=== PATIENT | female | born 1960 | race African-American/Black ===

== ENCOUNTER 2019-07-16 13:16 | Inpatient (IN) | payer MEDICAID ==
[~2019-07-16] VITALS: Ht 170.2 cm; Wt 98.2 kg
--- NOTE | 2019-07-16 13:20 | NUR ---
ED Nurse Note: Patient brought in by ambulance c/o dizziness and double vision. patient is alert awake, sometimes slow to answer queston. right side lesions noted due to shingles. patient reports she got diagnosed with shingles on 07/10/19, patient has not been taking any prescribed medications.
--- NOTE | 2019-07-16 13:34 | Emergency Room Report ---
History of Present Illness General Chief Complaint: Dizziness Source: Patient (Alverto Murcia MD) Present Illness HPI Patient is a 59-year-old female who presents after increased dizziness and diplopia. Patient reports having increased visual changes and states that she has been having difficulty with ambulation. Patient had also been having some difficulty with swallowing. She reports having onset of symptoms several days ago. She states she was recently seen at [facility]. She was recently diagnosed with shingles. She denies any current pain. She reports having some difficulty with vision. She denies blurring.She reports having prior history of hypertension and had been taking amlodipine as well as hydrochlorothiazide and losartan. (Alverto Murcia MD) Allergies: Coded Allergies: No Known Allergies (Unverified , 07/16/19) Patient History Now: No Reviewed Nursing Documentation: PMH: Agreed; PSxH: Agreed (Alverto Murcia MD) Nursing Documentation-PMH Past Medical History: No History, Except For Hx Hypertension: Yes (Alverto Murcia MD) Review of Systems All Other Systems: negative except mentioned in HPI (Alverto Murcia MD) Physical Exam Vital Signs Date Time Temp Pulse Resp B/P (MAP) Pulse Ox O2 Delivery O2 Flow Rate FiO2 07/16/19 13:14 98.2 89 20 126/94 (105) 99 Room Air General Appearance: alert, GCS 15, mild distress Head: normocephalic Eyes: bilateral eye other - disconjugate gas ENT: normal ENT inspection Neck: normal inspection, full range of motion Respiratory: normal inspection, chest non-tender, lungs clear Cardiovascular #1: normal inspection Gastrointestinal: normal inspection, normal bowel sounds, non tender, soft Musculoskeletal: normal inspection Neurologic: alert, oriented x3, 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 I feel this is a highly complex case requiring extensive working including EKG/Rhythm strip, Xray/CT/US, Blood/urine lab work, repeat exams while in ED, and administration of strong opiates/narcotics for pain control, admission to hospital or close patient follow up. Total time: 30 min bedside evaluation and treatment excludes procedures (EKG). Reason for critical care: lacunar infarcts Possible complications: hypotension, hypertension, MO, shock, arrhythmias, metabolic acidosis, end organ damage, respiratory failure. Interventions: MRI/MRA, consultation with neurology at [facility], aspirin Course: patient signed out to me pending MRI results. Admitted for dizziness. Positive PCP and Accu-Chek high. MRI was multiple lacunar infarcts. Patient stating dizziness for the last 5 days. Out of window for thrombolytic therapy. 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 Discussed case with stroke team at [facility]. Patient did not require higher level of care. Aspirin given Consultations: nursing staff, EMS, family Performed by: Dr Urena Tolerated well condition = serious j. because of unstable vital signs this patient had a condition that could potentially threaten life or limb. I feel this is a critical patient who required my full attention while patient was considered critical. Total Critical Care Time excluding procedures was greater than 35 minutes (Terence Urena MD) Medical Decision Making Diagnostic Impression: Primary Impression: Dizziness Additional Impressions: Uncontrolled diabetes mellitus Diplopia Lacunar infarct, acute ER Course Patient is a 59-year-old female presents for increased dizziness. Differential diagnosis include was not limited to vertigo, CVA, alcohol intoxication, hypertensive encephalopathy among others. Because of complexity of patient's case laboratory testing and imaging studies were ordered. Patient was noted to have what appears to be some ataxia as well as nystagmus. 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 See radiology report for full details. MRI of the brain was ordered due to patient's persistent dizziness and double vision. This patient was noted to have recent onset of symptoms. Urine drug screen did show positive for PCP which may partially explain the abnormal eye movements. Patient is also noted to be hyperglycemic with blood sugar greater than 400 patient started on IV fluids.Patient will be [facility] due to uncontrolled hyperglycemia and dizziness. Patient was endorsed to Dr. Urena pending MRI of brain. Labs Test 07/16/19 13:45 07/16/19 14:47 White Blood Count 8.9 K/UL (4.8-10.8) Red Blood Count 4.61 M/UL (4.20-5.40) Hemoglobin 14.0 G/DL (12.0-16.0) Hematocrit 41.7 % (37.0-47.0) Mean Corpuscular Volume 90 FL (80-99) Mean Corpuscular Hemoglobin 30.4 PG (27.0-31.0) Mean Corpuscular Hemoglobin Concent 33.6 G/DL (32.0-36.0) Red Cell Distribution Width 11.0 % (11.6-14.8) Platelet Count 315 K/UL (150-450) Mean Platelet Volume 7.1 FL (6.5-10.1) Neutrophils (%) (Auto) 59.6 % (45.0-75.0) Lymphocytes (%) (Auto) 31.4 % (20.0-45.0) Monocytes (%) (Auto) 7.3 % (1.0-10.0) Eosinophils (%) (Auto) 1.1 % (0.0-3.0) Basophils (%) (Auto) 0.6 % (0.0-2.0) Prothrombin Time 9.8 SEC (9.30-11.50) Prothromb Time International Ratio 0.9 (0.9-1.1) Activated Partial Thromboplast Time 24 SEC (23-33) Sodium Level 134 MMOL/L (136-145) Potassium Level 3.7 MMOL/L (3.5-5.1) Chloride Level 97 MMOL/L (98-107) Carbon Dioxide Level 25 MMOL/L (21-32) Anion Gap 12 mmol/L (5-15) Blood Urea Nitrogen 13 mg/dL (7-18) Creatinine 1.1 MG/DL (0.55-1.30) Estimat Glomerular Filtration Rate > 60 mL/min (>60) Glucose Level 508 MG/DL (74-106) Calcium Level 9.2 MG/DL (8.5-10.1) Total Bilirubin 0.4 MG/DL (0.2-1.0) Aspartate Amino Transf (AST/SGOT) 13 U/L (15-37) Alanine Aminotransferase (ALT/SGPT) 31 U/L (12-78) Alkaline Phosphatase 122 U/L (46-116) Troponin I 0.000 ng/mL (0.000-0.056) Total Protein 7.2 G/DL (6.4-8.2) Albumin 3.2 G/DL (3.4-5.0) Globulin 4.0 g/dL Albumin/Globulin Ratio 0.8 (1.0-2.7) Triglycerides Level 403 MG/DL (30-150) Cholesterol Level 230 MG/DL (< 200) LDL Cholesterol 150 mg/dL (<100) HDL Cholesterol 40 MG/DL (40-60) Cholesterol/HDL Ratio 5.8 (3.3-4.4) Lipase 181 U/L (73-393) Urine Opiates Screen Negative (NEGATIVE) Urine Barbiturates Screen Negative (NEGATIVE) Phencyclidine (PCP) Screen Positive (NEGATIVE) Urine Amphetamines Screen Negative (NEGATIVE) Urine Benzodiazepines Screen Negative (NEGATIVE) Urine Cocaine Screen Negative (NEGATIVE) Urine Marijuana (THC) Screen Negative (NEGATIVE) (Alverto Murcia MD) ER Course Hospital Course 59 yo F presents with dizziness, diplopia patient is signed out to me by Dr. Murcia; please see his note for full history and physical Labs show glucose greater than 500 no evidence of DKA. Positive PCP on drug screen. Pending MRI and MRA MRI shows multiple lacunar infarcts. MRA shows some stenosis of the right posterior cerebral artery. I evaluated the patient. Having dizziness since 07/09. No focal neurological deficits. Out of window for thrombolytic therapy. Discussed with stroke team at [facility] and they agree with assessment. Given aspirin. patient will be admitted to Dr Chavez' service for further care and support I. I feel this is a highly complex case requiring extensive working including EKG/Rhythm strip, Xray/CT/US, Blood/urine lab work, repeat exams while in ED, and administration of strong opiates/narcotics for pain control, admission to hospital or close patient follow up. Diagnosis -dizziness, uncontrolled diabetes, diplopia, lacunar infarct admitted to telemetry in serious condition Labs Test 07/16/19 13:45 07/16/19 14:47 White Blood Count 8.9 K/UL (4.8-10.8) Red Blood Count 4.61 M/UL (4.20-5.40) Hemoglobin 14.0 G/DL (12.0-16.0) Hematocrit 41.7 % (37.0-47.0) Mean Corpuscular Volume 90 FL (80-99) Mean Corpuscular Hemoglobin 30.4 PG (27.0-31.0) Mean Corpuscular Hemoglobin Concent 33.6 G/DL (32.0-36.0) Red Cell Distribution Width 11.0 % (11.6-14.8) Platelet Count 315 K/UL (150-450) Mean Platelet Volume 7.1 FL (6.5-10.1) Neutrophils (%) (Auto) 59.6 % (45.0-75.0) Lymphocytes (%) (Auto) 31.4 % (20.0-45.0) Monocytes (%) (Auto) 7.3 % (1.0-10.0) Eosinophils (%) (Auto) 1.1 % (0.0-3.0) Basophils (%) (Auto) 0.6 % (0.0-2.0) Prothrombin Time 9.8 SEC (9.30-11.50) Prothromb Time International Ratio 0.9 (0.9-1.1) Activated Partial Thromboplast Time 24 SEC (23-33) Sodium Level 134 MMOL/L (136-145) Potassium Level 3.7 MMOL/L (3.5-5.1) Chloride Level 97 MMOL/L (98-107) Carbon Dioxide Level 25 MMOL/L (21-32) Anion Gap 12 mmol/L (5-15) Blood Urea Nitrogen 13 mg/dL (7-18) Creatinine 1.1 MG/DL (0.55-1.30) Estimat Glomerular Filtration Rate > 60 mL/min (>60) Glucose Level 508 MG/DL (74-106) Calcium Level 9.2 MG/DL (8.5-10.1) Total Bilirubin 0.4 MG/DL (0.2-1.0) Aspartate Amino Transf (AST/SGOT) 13 U/L (15-37) Alanine Aminotransferase (ALT/SGPT) 31 U/L (12-78) Alkaline Phosphatase 122 U/L (46-116) Troponin I 0.000 ng/mL (0.000-0.056) Total Protein 7.2 G/DL (6.4-8.2) Albumin 3.2 G/DL (3.4-5.0) Globulin 4.0 g/dL Albumin/Globulin Ratio 0.8 (1.0-2.7) Triglycerides Level 403 MG/DL (30-150) Cholesterol Level 230 MG/DL (< 200) LDL Cholesterol 150 mg/dL (<100) HDL Cholesterol 40 MG/DL (40-60) Cholesterol/HDL Ratio 5.8 (3.3-4.4) Lipase 181 U/L (73-393) Urine Opiates Screen Negative (NEGATIVE) Urine Barbiturates Screen Negative (NEGATIVE) Phencyclidine (PCP) Screen Positive (NEGATIVE) Urine Amphetamines Screen Negative (NEGATIVE) Urine Benzodiazepines Screen Negative (NEGATIVE) Urine Cocaine Screen Negative (NEGATIVE) Urine Marijuana (THC) Screen Negative (NEGATIVE) (Terence Urena MD) CT/MRI/US Diagnostic Results CT/MRI/US Diagnostic Results #1: Imaging Test Ordered: MRA Brain Impression Findings: There is mild dolichoectasia of the distal left vertebral artery, which is dominant, less striking ectasia of the basilar artery. The distal vertebral and basilar arteries are patent, nonstenotic. The left PICA is visualized and patent. The right PICA is less well-demonstrated. Both superior cerebellar arteries are patent. Both P1 segments and proximal branches are patent. There is suggestion of stenosis, possibly significant of the right P2 origin, and equivocally slightly diminished flow enhancement distally. The left P1 and proximal branches are patent and nonstenotic. Neither posterior communicating artery is demonstrated. The anterior circulation demonstrates bilateral patent nonstenotic distal internal carotid arteries. The bilateral M1 segments and proximal branches are bilateral A1 segments and proximal branches are patent. There is probably a patent anterior commuting artery. No evidence of vascular malformation or aneurysm demonstrated. Impression: Evidence of stenosis, possibly significant, of the distal right P1 segment of the right posterior cerebral artery. No other evidence of proximal intracranial cerebrovascular insufficiency Findings discussed by phone with Dr. Urena in the emergency room at the time of interpretation CT/MRI/US Diagnostic Results #2: Imaging Test Ordered: MRI Brain Impression Findings: 3 punctate foci of restricted diffusion are seen within the the midbrain, one anteriorly and centrally, and one each just to the right and left of the central midline. Other foci of restricted diffusion are also demonstrated, one in the medial right thalamus and one in the left thalamus. The thalamic infarcts also demonstrated associated high T2 signal. There is no evidence of associated hemorrhage. No other foci of restricted diffusion demonstrated No acute hemorrhage or edema. No mass effect nor midline shift. Normal size ventricles and extra axial CSF spaces. There are scattered punctate foci of high T2 signal within the bilateral deep white matter. The vascular flow voids are preserved.. Visualized orbits and sinuses are unremarkable. Impression: Multiple acute lacunar infarcts in the midbrain and bilateral thalami. This probably represents multiple emboli to distal basilar artery perforators No acute hemorrhage or edema (Terence Urena MD) Last Vital Signs Date Time Temp Pulse Resp B/P (MAP) Pulse Ox O2 Delivery O2 Flow Rate FiO2 07/16/19 13:14 98.2 89 20 126/94 (105) 99 Room Air Status: unchanged (Alverto Murcia MD) Status: improved (Terence Urena MD) Disposition: ADMITTED INPATIENT Condition: Serious Alverto Murcia MD Jul 16, 2019 13:34 Terence Urena MD Jul 16, 2019 18:24
--- NOTE | 2019-07-16 13:50 | NUR ---
ED Nurse Note: patient went to CT
--- NOTE | 2019-07-16 14:04 | NUR ---
ED Nurse Note: patient came back from CT
[2019-07-16 14:07] VITALS: BP 149/75
[2019-07-16 14:08] LABS: BASOPHILS % (AUTO) 0.6 % (0.0-2.0); EOSINOPHILS % (AUTO) 1.1 % (0.0-3.0); HEMATOCRIT 41.7 % (37.0-47.0); LYMPHOCYTES % (AUTO) 31.4 % (20.0-45.0); MEAN CORPUSCULAR VOLUME 90 FL (80-99); MONOCYTES % (AUTO) 7.3 % (1.0-10.0); NEUTROPHILS % (AUTO) 59.6 % (45.0-75.0); PLATELET COUNT 315 K/UL (150-450); RED BLOOD COUNT 4.61 M/UL (4.20-5.40); WHITE BLOOD COUNT 8.9 K/UL (4.8-10.8)
[2019-07-16 14:18] LABS: INR 0.9 (0.9-1.1)
--- NOTE | 2019-07-16 14:21 | Diagnostic Imaging Report ---
Indications: Visual changes, difficulty ambulating, difficulty swallowing Technique: Spiral acquisitions obtained through the brain. Angled axial and coronal 5 x 5 mm slices were reconstructed. Total dose length product 1438.96 mGycm. CTDI vol(s) 70.38 mGy. Dose reduction achieved using automated exposure control Comparison: None. Findings: No acute intracranial hemorrhage or edema. No mass effect or midline shift. There is minimal periventricular deep white matter low-attenuation, consistent with chronic microvascular ischemic change. Normal gan-white differentiation otherwise. Normal size ventricles and extra-axial CSF spaces. There is dolichoectasia of the basilar and left vertebral arteries. The mastoids are clear. The calvarium is intact. The visualized orbits and sinuses are unremarkable Impression: Minimal age-related changes. Negative for acute intracranial bleed or mass effect The CT scanner at [facility] is accredited by the [employer] and the scans are performed using protocols designed to limit radiation exposure to as low as reasonably achievable to attain images of sufficient resolution adequate for diagnostic evaluation.
[2019-07-16 14:28] LABS: ALANINE AMINOTRANSFERASE 31 U/L (12-78); ALBUMIN 3.2 G/DL (3.4-5.0); ALBUMIN/GLOBULIN RATIO 0.8 (1.0-2.7); ALKALINE PHOSPHATASE 122 U/L (46-116); ANION GAP 12 mmol/L (5-15); ASPARTATE AMINO TRANSFERASE 13 U/L (15-37); BILIRUBIN,TOTAL 0.4 MG/DL (0.2-1.0); BLOOD UREA NITROGEN 13 mg/dL (7-18); CALCIUM 9.2 MG/DL (8.5-10.1); CARBON DIOXIDE 25 MMOL/L (21-32); CHLORIDE 97 MMOL/L (98-107); CHOLESTEROL 230 MG/DL (< 200); CREATININE 1.1 MG/DL (0.55-1.30); HDL CHOLESTEROL 40 MG/DL (40-60); POTASSIUM 3.7 MMOL/L (3.5-5.1); SODIUM 134 MMOL/L (136-145); TRIGLYCERIDES 403 MG/DL (30-150)
[2019-07-16] MEDS ORDERED: Gadavist 7.5mMol/7.5ml vial IV PRN (15:00)
--- NOTE | 2019-07-16 15:25 | NUR ---
ED Nurse Note: patient taken to MRI with London Mccabe
--- NOTE | 2019-07-16 17:07 | Diagnostic Imaging Report ---
Indication: Increased dizziness and diplopia, increased visual changes, difficulty ambulating Technique: sagittal T1 fast spin echo, axial T1 FLAIR, axial T2 FLAIR, axial T2 FS PROPELLER, axial T2* GRE, axial diffusion weighted images. ADC and exponential ADC maps generated Comparison: none Findings: 3 punctate foci of restricted diffusion are seen within the the midbrain, one anteriorly and centrally, and one each just to the right and left of the central midline. Other foci of restricted diffusion are also demonstrated, one in the medial right thalamus and one in the left thalamus. The thalamic infarcts also demonstrated associated high T2 signal. There is no evidence of associated hemorrhage. No other foci of restricted diffusion demonstrated No acute hemorrhage or edema. No mass effect nor midline shift. Normal size ventricles and extra axial CSF spaces. There are scattered punctate foci of high T2 signal within the bilateral deep white matter. The vascular flow voids are preserved.. Visualized orbits and sinuses are unremarkable. Impression: Multiple acute lacunar infarcts in the midbrain and bilateral thalami. This probably represents multiple emboli to distal basilar artery perforators No acute hemorrhage or edema Punctate foci of high T2 signal within the deep white matter, most likely on the basis of chronic microvascular ischemic changes although demyelinating disease also possibility. Critical value findings phoned to Dr. Urena in the emergency room at the time of interpretation
[2019-07-16] MEDS ORDERED: Metoclopramide 10mg/2ml Inj IVP PRN (17:15)
[2019-07-16] MEDS ORDERED: Acetaminophen 650 MG SUPP RECTAL PRN ×2 (17:15)
[2019-07-16] MEDS ORDERED: Miralax 17gm pkt ORAL PRN (17:15)
[2019-07-16] MEDS ORDERED: Nitroglycerin Subl 0.4mg tab SL PRN (17:15)
[2019-07-16] MEDS ORDERED: Hydromorphone 0.5mg/0.5ml inj IVP PRN (17:15)
[2019-07-16] MEDS ORDERED: Milk of Magnesia 30ml Ud ORAL PRN (17:15)
[2019-07-16] MEDS ORDERED: LORazepam 1mg tab ORAL PRN (17:15)
[2019-07-16] MEDS ORDERED: Zolpidem 5mg tab ORAL PRN (17:15)
--- NOTE | 2019-07-16 17:23 | History and Physical ---
History of Present Illness General Date patient seen: Jul 16, 2019 Time patient seen: 17:00 Reason for Hospitalization: Dizziness Present Illness HPI Patient is a 59-year-old female who presents after increased dizziness and diplopia. Patient reports having increased visual changes and states that she has been having difficulty with ambulation that began 5 days ago. Patient had also been having some difficulty with swallowing. She reports having onset of symptoms several days ago. She states she was recently seen at [facility]. She was recently diagnosed with shingles. She denies any current pain. She reports having some difficulty with vision. She denies blurring.She reports having prior history of hypertension and had been taking amlodipine as well as hydrochlorothiazide and losartan. Above history was confirmed with patient. She was found to have hyperglycemia of glucose 508 in the ed and given ivf. She was also found to be PCP positive. Patient denies prior history of diabetes. She denies fevers, c, n, v, abd pain. Admits to right arm weakness, no change in sensation. MRA showed acute infarcts however symptoms were five days ago. ED discussed with [facility] stroke center. Patient also complains of a burning pain at her flank where she was diagnosed with shingles but never got treatment. Denies known history of zoster infection. Allergies: Coded Allergies: No Known Allergies (Unverified , 07/16/19) Medication History Scheduled Amlodipine Besylate* (Amlodipine Besylate*), 5 MG ORAL DAILY, (Reported) Aspirin* (Aspirin*), 81 MG ORAL DAILY, (Reported) Hydrochlorothiazide* (Hydrochlorothiazide*), 25 MG ORAL DAILY, (Reported) Losartan Potassium* (Losartan Potassium*), 50 MG ORAL DAILY, (Reported) Patient History Healthcare decision maker Resuscitation status FULL Advanced Directive on File Past Medical/Surgical History Past Medical/Surgical History: (1) HTN (hypertension) Social History Social History: (1) Substance abuse (2) PCP (phencyclidine) abuse Review of Systems All Other Systems: negative except mentioned in HPI Physical Exam Last 24 Hour Vital Signs Date Time Temp Pulse Resp B/P (MAP) Pulse Ox O2 Delivery O2 Flow Rate FiO2 07/16/19 14:07 98.2 81 20 149/75 98 Room Air 07/16/19 13:47 89 20 Room Air 07/16/19 13:14 98.2 89 20 126/94 (105) 99 Room Air Laboratory Tests Test 07/16/19 13:45 07/16/19 14:47 White Blood Count 8.9 K/UL (4.8-10.8) Red Blood Count 4.61 M/UL (4.20-5.40) Hemoglobin 14.0 G/DL (12.0-16.0) Hematocrit 41.7 % (37.0-47.0) Mean Corpuscular Volume 90 FL (80-99) Mean Corpuscular Hemoglobin 30.4 PG (27.0-31.0) Mean Corpuscular Hemoglobin Concent 33.6 G/DL (32.0-36.0) Red Cell Distribution Width 11.0 % (11.6-14.8) L Platelet Count 315 K/UL (150-450) Mean Platelet Volume 7.1 FL (6.5-10.1) Neutrophils (%) (Auto) 59.6 % (45.0-75.0) Lymphocytes (%) (Auto) 31.4 % (20.0-45.0) Monocytes (%) (Auto) 7.3 % (1.0-10.0) Eosinophils (%) (Auto) 1.1 % (0.0-3.0) Basophils (%) (Auto) 0.6 % (0.0-2.0) Prothrombin Time 9.8 SEC (9.30-11.50) Prothromb Time International Ratio 0.9 (0.9-1.1) Activated Partial Thromboplast Time 24 SEC (23-33) Sodium Level 134 MMOL/L (136-145) L Potassium Level 3.7 MMOL/L (3.5-5.1) Chloride Level 97 MMOL/L (98-107) L Carbon Dioxide Level 25 MMOL/L (21-32) Anion Gap 12 mmol/L (5-15) Blood Urea Nitrogen 13 mg/dL (7-18) Creatinine 1.1 MG/DL (0.55-1.30) Estimat Glomerular Filtration Rate > 60 mL/min (>60) Glucose Level 508 MG/DL (74-106) *H Calcium Level 9.2 MG/DL (8.5-10.1) Total Bilirubin 0.4 MG/DL (0.2-1.0) Aspartate Amino Transf (AST/SGOT) 13 U/L (15-37) L Alanine Aminotransferase (ALT/SGPT) 31 U/L (12-78) Alkaline Phosphatase 122 U/L (46-116) H Troponin I 0.000 ng/mL (0.000-0.056) Total Protein 7.2 G/DL (6.4-8.2) Albumin 3.2 G/DL (3.4-5.0) L Globulin 4.0 g/dL Albumin/Globulin Ratio 0.8 (1.0-2.7) L Triglycerides Level 403 MG/DL (30-150) H Cholesterol Level 230 MG/DL (< 200) H LDL Cholesterol 150 mg/dL (<100) H HDL Cholesterol 40 MG/DL (40-60) Cholesterol/HDL Ratio 5.8 (3.3-4.4) H Lipase 181 U/L (73-393) Urine Opiates Screen Negative (NEGATIVE) Urine Barbiturates Screen Negative (NEGATIVE) Phencyclidine (PCP) Screen Positive (NEGATIVE) H Urine Amphetamines Screen Negative (NEGATIVE) Urine Benzodiazepines Screen Negative (NEGATIVE) Urine Cocaine Screen Negative (NEGATIVE) Urine Marijuana (THC) Screen Negative (NEGATIVE) Height (Feet): 5 Height (Inches): 7.00 Weight (Pounds): 170 Medications Current Medications Medications (Trade) Dose Ordered Sig/Artem Route PRN Reason Start Time Stop Time Status Last Admin Dose Admin Acetaminophen (Tylenol) 650 mg Q4H PRN ORAL Mild Pain (Pain Scale 1-3) 07/16/19 17:15 08/15/19 17:14 Acetaminophen (Tylenol) 650 mg Q4H PRN ORAL fever 07/16/19 17:15 08/15/19 17:14 Acetaminophen (Tylenol) 650 mg Q4H PRN RECTAL Mild Pain (Pain Scale 1-3) 07/16/19 17:15 08/15/19 17:14 Acetaminophen (Tylenol) 650 mg Q4H PRN RECTAL fever 07/16/19 17:15 08/15/19 17:14 Bisacodyl (Dulcolax) 10 mg DAILYPRN PRN RECTAL Constipation 07/16/19 17:15 08/15/19 17:14 Dextrose (Dextrose 50%) 25 ml Q30M PRN IV Hypoglycemia 07/16/19 17:15 08/15/19 17:14 Dextrose (Dextrose 50%) 50 ml Q30M PRN IV Hypoglycemia 07/16/19 17:15 08/15/19 17:14 Diphenhydramine HCl (Benadryl) 25 mg Q6H PRN ORAL Itching/Pruritis 07/16/19 17:15 08/15/19 17:14 Docusate Sodium (Colace) 100 mg EVERY 12 HOURS ORAL 07/16/19 21:00 08/15/19 20:59 Famotidine (Pepcid) 40 mg DAILY ORAL 07/17/19 09:00 08/16/19 08:59 Gadobutrol (Gadavist) 7.5 mmol NOW PRN IV Radiology Procedure 07/16/19 15:00 07/20/19 14:54 Heparin Sodium (Porcine) (Heparin 5000 units/ml) 5,000 units EVERY 8 HOURS SUBQ 07/16/19 22:00 08/15/19 21:59 Hydromorphone HCl (Dilaudid) 0.5 mg Q4H PRN IVP severe pain 07/16/19 17:15 07/23/19 17:14 Insulin Detemir (Levemir) 10 units BEDTIME SUBQ 07/16/19 21:00 08/15/19 20:59 UNV Insulin Human Regular (NovoLIN R) 10 units ONCE ONCE SUBQ 07/16/19 17:30 07/16/19 17:31 UNV Lorazepam (Ativan) 1 mg Q4H PRN ORAL For Anxiety 07/16/19 17:15 07/23/19 17:14 Magnesium Hydroxide (Mom) 30 ml HSPRN PRN ORAL Constipation 07/16/19 17:15 08/15/19 17:14 Methocarbamol (Robaxin) 500 mg TID PRN ORAL spaspm 07/16/19 17:30 08/15/19 17:29 UNV Metoclopramide HCl (Reglan) 10 mg Q6H PRN IVP Nausea & Vomiting 07/16/19 17:15 08/15/19 17:14 Nitroglycerin (Ntg) 0.4 mg Q5M PRN SL Prn Chest Pain 07/16/19 17:15 08/15/19 17:14 Ondansetron HCl (Zofran) 4 mg Q6H PRN IVP Nausea & Vomiting 07/16/19 17:15 08/15/19 17:14 Polyethylene Glycol (Miralax) 17 gm DAILYPRN PRN ORAL Constipation 07/16/19 17:15 08/15/19 17:14 Prochlorperazine (Compazine) 10 mg Q6H PRN IVP Nausea & Vomiting 07/16/19 17:15 08/15/19 17:14 Sodium Chloride 1,000 ml @ 100 mls/hr Q10H IVLG 07/16/19 20:00 08/15/19 19:59 Tramadol HCl (Ultram) 50 mg Q6H PRN ORAL mod pain 07/16/19 17:30 07/23/19 17:29 UNV Valacyclovir HCl (Valtrex) 1,000 mg TID ORAL 07/16/19 18:00 07/23/19 17:59 UNV Zolpidem Tartrate (Ambien) 5 mg DAILYPRN PRN ORAL Insomnia 07/16/19 17:15 07/23/19 17:14 Objective Narrative gen- overweight female, distracted in conversation and has difficulty remaining eye contact cv- rrr,no m,r,g resp- ctab no w,r,c, abd- soft, nondistended, no masses ext- normal muscle tone skin- right flank dermatomal pattern of crusted vesicular rash neuro- CN II-XII intact, 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 Assessment/Plan Diagnosis Circle I: 59 yo F PMH of HTN present complaining of diploplia for 5 days, ataxia, and found to have hyperglycemia in the ed # DIploplia/weakness, eval for cva ddx: pcp - Neurology consult, appreciate reqs - Psyche consult appreciate reqs - f/u final read MRA head and neck - ED reports acute infarcts and [facility] [place], pt out of window - tele - ekg and troponins - echo - sw for substance abuse - PT OT - check flp - statin # New onset DM2 - check a1c - check FLP - s/p 1 L NS in ED - cont NS @ 100 - 10 units of regular insulin now and levemir 10 sq qhs - patient insulin naive - Endo consult, appreciate reqs - accuchecks qac and qhs - diabetic diet - diabetic education # Shingles - lesions are crusted over, patient does not need iso - valacyclovir 1g tid x 6 dys (07/16-) - gabapentin for pain control to start tmw after resolution of desi - pain control, see orders # likely DESI, prerenal - IVF as above - monitor bmp - avoid nephrotoxic meds - UA - monitor I/O # Uncontrolled HT - cont home meds - nifedipine prn FULL CODE spent >18 minutes in discussion regarding code status time of note may not reflect time of my encounter Sonya Lan DO Jul 16, 2019 17:23
[2019-07-16] MEDS ORDERED: Aspirin EC 325mg tab ORAL ONE (17:30)
[2019-07-16] MEDS ORDERED: Methocarbamol 500mg tab ORAL PRN (17:30)
--- NOTE | 2019-07-16 17:44 | Diagnostic Imaging Report ---
Indications: Dizziness, diplopia, increased visual changes, infarcts demonstrated on concomitant MRI Technique: 3D [id number] images obtained through the [place] [facility] [place]. MIP reconstructions were generated in multiple rotational projections Comparison: none Findings: There is mild dolichoectasia of the distal left vertebral artery, which is dominant, less striking ectasia of the basilar artery. The distal vertebral and basilar arteries are patent, nonstenotic. The left PICA is visualized and patent. The right PICA is less well-demonstrated. Both superior cerebellar arteries are patent. Both P1 segments and proximal branches are patent. There is suggestion of stenosis, possibly significant of the right P2 origin, and equivocally slightly diminished flow enhancement distally. The left P1 and proximal branches are patent and nonstenotic. Neither posterior communicating artery is demonstrated. The anterior circulation demonstrates bilateral patent nonstenotic distal internal carotid arteries. The bilateral M1 segments and proximal branches are bilateral A1 segments and proximal branches are patent. There is probably a patent anterior commuting artery. No evidence of vascular malformation or aneurysm demonstrated. Impression: Evidence of stenosis, possibly significant, of the distal right P1 segment of the right posterior cerebral artery. No other evidence of proximal intracranial cerebrovascular insufficiency Findings discussed by phone with Dr. Urena in the emergency room at the time of interpretation
[2019-07-16 18:37] VITALS: BP 145/71
[2019-07-16] MEDS ORDERED: ASPIRIN81 MG ORAL (18:53)
[2019-07-16] MEDS ORDERED: LOSARTAN POTASS50 MG ORAL (18:53)
[2019-07-16] MEDS ORDERED: AMLODIPINE BESYL5 MG ORAL (18:53)
[2019-07-16] MEDS ORDERED: HYDROCHLOROTHIA25 MG ORAL (18:53)
--- NOTE | 2019-07-16 19:03 | NUR ---
HAND-OFF: Report given to Tanisha HERNANDEZ. patient is stable in bed, talking on the phone.
--- NOTE | 2019-07-16 19:04 | NUR ---
ED Nurse Note: Received report from DAVID Jonas. pT in bed, VSS
[2019-07-16] MEDS ORDERED: Insulin Human Regular 100units/ml 3ml SUBQ SCH (19:30)
[2019-07-16] MEDS ORDERED: NIFEdipine 10mg cap ORAL PRN (20:30)
--- NOTE | 2019-07-16 20:40 | NUR ---
ER DISCHARGE NOTE: pt was brought up to telemetry room 218-2 accompanied by RN and administrative tech via bed in stable condition. Report given to DAVID Lopez. Belonging list signed off.
--- NOTE | 2019-07-16 20:45 | NUR ---
NURSE NOTES: Received report from Cassie Brush RN. regarding patient's transfer to TELE floor from ED. Belongings checklist done and head to toe assessment initiated with noted Shingles on right side of abdomen. Appropriate isolation precaution active per protocol. Placed on continuous cardiac monitoring as ordered. Safety precaution in place; siderails X2 up, call light within reach, bed in lowest position, brakes and alarm on at all times. Needs and wants anticipated and attended, will continue plan of care and monitor for any changes noted. MD aware of patient's arrival on the unit. New orders received and carried out WC protocol orders and pictures taken for noted Shingles. MD aware Placed on isolation precaution per protocol
[2019-07-16 21:00] VITALS: BP 150/92
[2019-07-16 21:19] LABS: CREATINE KINASE 61 U/L (26-308)
[2019-07-16] MEDS: valACYclovir HCL 500mg tab ORAL SCH (21:49)
[2019-07-16] MEDS: Docusate 100mg cap ORAL SCH (21:49)
[2019-07-16] MEDS: Heparin 5000 units/ml inj SUBQ SCH (21:50)
[2019-07-16] MEDS: Insulin NovoLOG Flexpen S/S (Mod) SUBQ SCH (22:00)
[2019-07-16] MEDS ORDERED: Levemir Flexpen SUBQ SCH (23:00)
[2019-07-16 23:55] LABS: APPEARANCE,URINE CLEAR; BILIRUBIN, URINE NEGATIVE (NEGATIVE); COLOR,URINE PALE YELLOW; GLUCOSE, URINE (UA) 4+ (NEGATIVE); KETONES,URINE NEGATIVE (NEGATIVE); LEUKOCYTE ESTERASE ,URINE 2+ (NEGATIVE); NITRITE,URINE NEGATIVE (NEGATIVE); PH,URINE 7 (4.5-8.0); PROTEIN,URINE NEGATIVE (NEGATIVE); UROBILINOGEN,URINE NORMAL MG/DL (0.0-1.0)
[2019-07-17] VITALS: BP 155/86
[2019-07-17 04:00] VITALS: BP 156/60
[2019-07-17] MEDS: valACYclovir HCL 500mg tab ORAL SCH ×3 (05:36→21:35)
[2019-07-17] MEDS: Insulin NovoLOG Flexpen S/S (Mod) SUBQ SCH ×4 (05:38→21:46)
[2019-07-17] MEDS: Heparin 5000 units/ml inj SUBQ SCH ×3 (05:38→21:45)
--- NOTE | 2019-07-17 06:30 | NUR ---
HAND-OFF: Report given to Natividad Estrada RN. Endorsed plan of care. Patient in bed with no S/S of distress.
--- NOTE | 2019-07-17 07:10 | NUR ---
NURSE NOTES: Nurse report given by DAVID Mcpherson. Patient's awake and comfortable in bed. Bed at lowest position, break engaged and call light within reach. IV is running fluid, patent and asymptomatic. Patient uses bedside commode. Denies pain. No s/s of distress or SOB. Will continue to monitor.
[2019-07-17 07:22] LABS: EOSINOPHILS % (AUTO) 2.2 % (0.0-3.0); HEMATOCRIT 41.5 % (37.0-47.0); HEMOGLOBIN 14.1 G/DL (12.0-16.0); LYMPHOCYTES % (AUTO) 45.1 % (20.0-45.0); MEAN CORPUSCULAR VOLUME 89 FL (80-99); MONOCYTES % (AUTO) 8.4 % (1.0-10.0); NEUTROPHILS % (AUTO) 43.4 % (45.0-75.0); PLATELET COUNT 318 K/UL (150-450); RED BLOOD COUNT 4.66 M/UL (4.20-5.40); RED CELL DISTRIBUTION WIDTH 11.1 % (11.6-14.8); WHITE BLOOD COUNT 7.1 K/UL (4.8-10.8)
[2019-07-17 07:49] LABS: CHOLESTEROL 239 MG/DL (< 200); HDL CHOLESTEROL 38 MG/DL (40-60); TRIGLYCERIDES 258 MG/DL (30-150)
[2019-07-17 07:57] LABS: ANION GAP 10 mmol/L (5-15); BLOOD UREA NITROGEN 10 mg/dL (7-18); CALCIUM 8.8 MG/DL (8.5-10.1); CARBON DIOXIDE 26 MMOL/L (21-32); CHLORIDE 102 MMOL/L (98-107); CREATININE 0.7 MG/DL (0.55-1.30); POTASSIUM 3.1 MMOL/L (3.5-5.1); SODIUM 137 MMOL/L (136-145)
[2019-07-17 08:00] VITALS: BP 140/92
[2019-07-17] MEDS: Docusate 100mg cap ORAL SCH ×2 (09:14→21:35)
--- NOTE | 2019-07-17 09:27 | Diagnostic Imaging Report ---
Indication: Shortness breath Technique: One view of the chest Comparison: none Findings: Lungs and pleural spaces are clear. The heart is upper limits normal in size. The aorta is tortuous and ectatic Impression: No acute process
--- NOTE | 2019-07-17 09:32 | NUR ---
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 SI: DIZZINESS, LACUNAR INFARCT, DIPLOPIA, UNCONTROLLED DM VS: BP: 149/75 HR: 81 RR 20 02 Sat 98% (RA) T: 98.2 NT: NA 134 CL 97 GLUCOSE 508 TRIGLY 403 CHOLESTEROL 250 LDL 150 ALKPHOS 122 UR PHENYCY + HEAD CT: NEG IS: NS 1000ML IV NOVOLIN R 10U SUBQ ASA 325MG PO Admitted to TELEMETRY TELEMETRY status DCP: Pending Hospital Stay
--- NOTE | 2019-07-17 09:48 | General Progress Note ---
Assessment/Plan Assessment/Plan: void note Subjective Allergies: Coded Allergies: No Known Allergies (Unverified , 07/16/19) Objective Last 24 Hour Vital Signs Date Time Temp Pulse Resp B/P (MAP) Pulse Ox O2 Delivery O2 Flow Rate FiO2 07/17/19 04:00 98.0 72 19 156/60 (92) 96 07/17/19 04:00 71 07/17/19 00:00 97.0 76 18 155/86 (109) 93 07/17/19 00:00 75 07/16/19 22:00 75 07/16/19 21:14 Room Air 07/16/19 21:00 97.2 75 18 150/92 (111) 96 07/16/19 20:40 98.4 71 18 140/75 98 Room Air 07/16/19 18:37 98.2 72 18 145/71 98 Room Air 07/16/19 14:07 98.2 81 20 149/75 98 Room Air 07/16/19 13:47 89 20 Room Air 07/16/19 13:14 98.2 89 20 126/94 (105) 99 Room Air Intake and Output 07/16/19 07/17/19 18:59 06:59 Intake Total 240 ml Output Total 400 ml Balance -160 ml Intake Oral 240 ml Output Urine Total 400 ml # Voids 1 Laboratory Tests 07/16/19 13:45: White Blood Count 8.9, Red Blood Count 4.61, Hemoglobin 14.0, Hematocrit 41.7, Mean Corpuscular Volume 90, Mean Corpuscular Hemoglobin 30.4, Mean Corpuscular Hemoglobin Concent 33.6, Red Cell Distribution Width 11.0L, Platelet Count 315, Mean Platelet Volume 7.1, Neutrophils (%) (Auto) 59.6, Lymphocytes (%) (Auto) 31.4, Monocytes (%) (Auto) 7.3, Eosinophils (%) (Auto) 1.1, Basophils (%) (Auto ) 0.6, Prothrombin Time 9.8, Prothromb Time International Ratio 0.9, Activated Partial Thromboplast Time 24, Sodium Level 134L, Potassium Level 3.7, Chloride Level 97L, Carbon Dioxide Level 25, Anion Gap 12, Blood Urea Nitrogen 13, Creatinine 1.1, Estimat Glomerular Filtration Rate > 60, Glucose Level 508*H, Hemoglobin A1c 13.7H, Calcium Level 9.2, Magnesium Level 1.7L, Total Bilirubin 0.4, Aspartate Amino Transf (AST/SGOT) 13L, Alanine Aminotransferase (ALT/SGPT) 31, Alkaline Phosphatase 122H, Total Creatine Kinase 61, Troponin I 0.000, Total Protein 7.2, Albumin 3.2L, Globulin 4.0, Albumin/Globulin Ratio 0.8L, Triglycerides Level 403H, Cholesterol Level 230H, LDL Cholesterol 150H, HDL Cholesterol 40, Cholesterol/HDL Ratio 5.8H, Lipase 181, Thyroid Stimulating Hormone (TSH) 1.041, Free Thyroxine 0.87 07/16/19 14:47: Urine Opiates Screen Negative, Urine Barbiturates Screen Negative, Phencyclidine (PCP) Screen PositiveH, Urine Amphetamines Screen Negative, Urine Benzodiazepines Screen Negative, Urine Cocaine Screen Negative, Urine Marijuana (THC) Screen Negative 07/16/19 21:20: Potassium Level 3.4L 07/16/19 23:40: Urine Color Pale yellow, Urine Appearance Clear, Urine pH 7, Urine Specific [place] 1.010, Urine Protein Negative, Urine Glucose (UA) 4+H, Urine Ketones Negative, Urine Blood Negative, Urine Nitrite Negative, Urine Bilirubin Negative , Urine Urobilinogen Normal, Urine Leukocyte Esterase 2+H, Urine RBC 0-2, Urine WBC 5-10H, Urine Squamous Epithelial Cells Few, Urine Bacteria Few 07/17/19 06:47: White Blood Count 7.1, Red Blood Count 4.66, Hemoglobin 14.1, Hematocrit 41.5, Mean Corpuscular Volume 89, Mean Corpuscular Hemoglobin 30.3, Mean Corpuscular Hemoglobin Concent 34.1, Red Cell Distribution Width 11.1L, Platelet Count 318, Mean Platelet Volume 7.1, Neutrophils (%) (Auto) 43.4L, Lymphocytes (%) (Auto) 45.1H, Monocytes (%) (Auto) 8.4, Eosinophils (%) (Auto) 2.2, Basophils (%) (Auto ) 1.0, Sodium Level 137, Potassium Level 3.1L, Chloride Level 102, Carbon Dioxide Level 26, Anion Gap 10, Blood Urea Nitrogen 10, Creatinine 0.7, Estimat Glomerular Filtration Rate > 60, Glucose Level 275#H, Calcium Level 8.8, Magnesium Level 1.8, Triglycerides Level 258H, Cholesterol Level 239H, LDL Cholesterol 158H, HDL Cholesterol 38L, Cholesterol/HDL Ratio 6.3H Height (Feet): 5 Height (Inches): 7.00 Weight (Pounds): 206 Sonya Lan DO Jul 17, 2019 09:48
--- NOTE | 2019-07-17 10:00 | NUR ---
Social Service Note SW attempted to meet with patient, patient asked SW to come back at a later time. SW will follow up at later time to assess for substance abuse. Patient positive for PCP. Addendum: 07/18/19 at 1459 by POLINA MAN Patient denies substance abuse issues and indicated not requiring follow up services.
[2019-07-17] MEDS: Aspirin Baby 81mg ORAL SCH (10:47)
[2019-07-17] MEDS ORDERED: Insulin Human Regular 100units/ml 3ml SUBQ SCH (11:30)
[2019-07-17 12:00] VITALS: BP 150/91
--- NOTE | 2019-07-17 12:38 | Cardiology Report ---
APPROVED REPORT EKG Measurement Heart [id number] Normal sinus rhythm Left axis deviation Nonspecific T wave abnormality Abnormal ECG
--- NOTE | 2019-07-17 13:43 | Cardiology Report ---
APPROVED REPORT EXAM: Two-dimensional and M-mode echocardiogram with Doppler and color Doppler. INDICATION CVA/TIA M-Mode DIMENSIONS IVSd1.1 (0.7-1.1cm)Left Atrium (MM)3.6 (1.6-4.0cm) LVDd5.4 (3.5-5.6cm)Aortic Root3.4 (2.0-3.7cm) PWd0.9 (0.7-1.1cm)Aortic Cusp Exc.1.7 (1.5-2.0cm) LVDs3.9 (2.5-4.0cm) PWs1.3 cm Normal left ventricular chamber size, systolic function and wall motion. Left ventricular ejection fraction estimated to be 60-65%. Moderate left ventricular hypertrophy. Anterior Echo-free space, may be due to pericardial fat or effusion. All other cardiac chamber sizes are within normal limits. Focal aortic valve sclerosis with adequate cusp excursion. Thickened mitral valve leaflets with normal excursion. Mitral annulus and aortic root calcification. Pulmonic valve not well visualized. Normal tricuspid valve structure. IVC measured at 1.9 cm with physiologic collapse. A color flow and spectral Doppler study was performed and revealed: No aortic regurgitation. Trace mitral regurgitation. Mitral diastolic velocities suggest reduced left ventricular relaxation c/w mild LV diastolic dysfunction (Grade I ). Trace tricuspid regurgitation. Tricuspid systolic velocities suggests peak right ventricular systolic pressure of 15 mmHg. Mild pulmonic regurgitation present.
--- NOTE | 2019-07-17 14:00 | NUR ---
PT EVALUATION NOTE Patient seen for initial evaluation, see complete evaluation for details. Patient presents with generalized weakness and impaired balance which affects patient's ability to complete mobility tasks. Patient requires CGA for transfers and ambulation due to impaired balance. Stance and ambulation are unsteady and patient is high fall risk. Patient will benefit from skilled inpatient PT intervention to address strength, balance, safety and functional mobility. Recommend discharge to ARU/SNF for further rehab once medically cleared by MD. DME needs to be determined based on patient's progress. Addendum: 07/17/19 at 1425 by KIKI LEVINE PT Amended: Links added.
--- NOTE | 2019-07-17 14:43 | NUR ---
*-* INSURANCE *-* ALL CLINICALS AND REVIEWS HAVE BEEN FAXED TO: NATALIE MOSQUEDA:DELONTE F: [phone]
[2019-07-17 16:00] VITALS: BP 149/91
--- NOTE | 2019-07-17 16:36 | General Progress Note ---
Assessment/Plan Assessment/Plan: 59 yo F PMH of HTN present complaining of diploplia for 5 days, ataxia, and found to have hyperglycemia in the ed # Diploplia/weakness in setting of substance abuse (PCP) - Neurology consult, appreciate reqs - Psyche consult appreciate reqs - f/u final read MRA head and neck: Reviewed - ED reports acute infarcts and [place] [facility] [place], pt out of window - tele - ekg and troponins: Reviewed - echo follow-up - sw for substance abuse - PT OT - check flp; elevated - statin # New onset DM2 - check a1c: 13 - check FLP: Reviewed - s/p 1 L NS in ED -S/P NS @ 100 - 10 units of regular insulin now and levemir 10 sq qhs-> Levemir increased from 10 units to 16 units, further management per endocrinology - Endo consult, appreciate reqs - accuchecks qac and qhs - diabetic diet - diabetic education # Shingles - lesions are crusted over, patient does not need iso - valacyclovir 1g tid x 6 dys (07/16-) - gabapentin for pain control - pain control, see orders # DESI, prerenal and resolved - IVF as above - monitor bmp - avoid nephrotoxic meds - UA: Reviewed - monitor I/O # Uncontrolled HTN - cont home meds - nifedipine prn FULL CODE time of note may not reflect time of my encounter Subjective Allergies: Coded Allergies: No Known Allergies (Unverified , 07/16/19) Objective Last 24 Hour Vital Signs Date Time Temp Pulse Resp B/P (MAP) Pulse Ox O2 Delivery O2 Flow Rate FiO2 07/17/19 12:00 97.7 67 18 150/91 (110) 97 07/17/19 12:00 70 07/17/19 10:47 79 140/92 07/17/19 09:00 Room Air 07/17/19 08:00 97.9 79 18 140/92 (108) 98 07/17/19 08:00 79 07/17/19 04:00 98.0 72 19 156/60 (92) 96 07/17/19 04:00 71 07/17/19 00:00 97.0 76 18 155/86 (109) 93 07/17/19 00:00 75 07/16/19 22:00 75 07/16/19 21:14 Room Air 07/16/19 21:00 97.2 75 18 150/92 (111) 96 07/16/19 20:40 98.4 71 18 140/75 98 Room Air 07/16/19 18:37 98.2 72 18 145/71 98 Room Air Intake and Output 07/16/19 07/17/19 19:00 07:00 Intake Total 240 ml Output Total 400 ml Balance -160 ml Intake Oral 240 ml Output Urine Total 400 ml # Voids 1 Laboratory Tests 07/16/19 21:20: Potassium Level 3.4L 07/16/19 23:40: Urine Color Pale yellow, Urine Appearance Clear, Urine pH 7, Urine Specific [place] 1.010, Urine Protein Negative, Urine Glucose (UA) 4+H, Urine Ketones Negative, Urine Blood Negative, Urine Nitrite Negative, Urine Bilirubin Negative , Urine Urobilinogen Normal, Urine Leukocyte Esterase 2+H, Urine RBC 0-2, Urine WBC 5-10H, Urine Squamous Epithelial Cells Few, Urine Bacteria Few 07/17/19 06:47: Potassium Level 3.1L, White Blood Count 7.1, Red Blood Count 4.66, Hemoglobin 14.1, Hematocrit 41.5, Mean Corpuscular Volume 89, Mean Corpuscular Hemoglobin 30.3, Mean Corpuscular Hemoglobin Concent 34.1, Red Cell Distribution Width 11.1L, Platelet Count 318, Mean Platelet Volume 7.1, Neutrophils (%) (Auto) 43.4L, Lymphocytes (%) (Auto) 45.1H, Monocytes (%) (Auto) 8.4, Eosinophils (%) ( Auto) 2.2, Basophils (%) (Auto) 1.0, Sodium Level 137, Chloride Level 102, Carbon Dioxide Level 26, Anion Gap 10, Blood Urea Nitrogen 10, Creatinine 0.7, Estimat Glomerular Filtration Rate > 60, Glucose Level 275#H, Calcium Level 8.8 , Magnesium Level 1.8, Triglycerides Level 258H, Cholesterol Level 239H, LDL Cholesterol 158H, HDL Cholesterol 38L, Cholesterol/HDL Ratio 6.3H Height (Feet): 5 Height (Inches): 7.00 Weight (Pounds): 206 RikyMichaelkianna WALLACE Jul 17, 2019 16:36
[2019-07-17] MEDS: metFORMIN 500mg tab ORAL SCH (17:17)
[2019-07-17] MEDS: NovoLOG Insulin Flexpen SUBQ SCH (17:21)
--- NOTE | 2019-07-17 19:15 | NUR ---
HAND-OFF: Report given to DAVID Alatorre. Plan of care endorsed. Patient's stable.
--- NOTE | 2019-07-17 19:20 | NUR ---
NURSE NOTES: Pt received from DAVID Mckeon alert and oriented x3 with no acute s/s of distress noted. IV site on L ac swollen and bruised, d/saulo IV for safety. Will insert new IV for patient. Bed in lowest position, bed alarm on. Call light and belongings within reach.
[2019-07-17 20:00] VITALS: BP 147/93
[2019-07-17] MEDS ORDERED: Levemir Flexpen SUBQ SCH ×2 (21:00)
--- NOTE | 2019-07-17 21:34 | Consultation ---
Consult Note Consult Note NEUROLOGY CONSULTATION: Full note dictated #[id number] 59-year-old, right-handed, black lady, who does have a long history of hypertension, dyslipidemia, and PCP abuse. About 2 weeks ago she was sick with the shingles involving her right sided lumbar nerve roots. About a week ago she started to feel unsteady on her feet and dizzy. The problem got progressively worse and on 07/16/2019 she presented to the [facility] emergency room with unsteadiness on her feet and double vision. She noticed the double vision most when she would look either up or down. Today the double vision has improved significantly and only occurs when she looks to the extreme upwards or downwards. The images that she sees are up and down. Weakness on one side of the other numbness on one side or the other problems with speech problems with language problems with memory or other neurological symptoms. ON EXAMINATION: Awake and alert Fully oriented Memory 3/3-0, 2/3-1 and 3 Presidents Trump and Obama only Math good Visual-spatial function preserved Speech normal Language normal Cranial nerves II through XII intact except for diplopia with images up-and- down when she is made to look up and down. Motor normal Sensory normal Reflexes 0 with plantar responses flexor Wide-based stance Wide-based gait IMPRESSION: Approximately 1 week history of unsteadiness on feet followed by 1 day history of double vision. MRI reveals multiple acute lacunar infarcts in the midbrain and thalami. In addition old bilateral deep white matter infarcts are also seen. The patient most probably has significant small blood vessel cerebrovascular disease due to hypertension, diabetes mellitus, dyslipidemia, and PCP abuse. RECOMMENDATIONS: The patient was made aware of the above-mentioned findings She was made aware of the ills of PCP use Her blood pressure should be controlled and brought down into the physiological range that is equal to less than 120/80 mmHg. Her dyslipidemia should be treated aggressively with LDL goal being less than 70 Her diabetes mellitus should be controlled and her hemoglobin A1c goal should be less than 6% If the diplopia continues to be bothersome she may benefit from an eye patch until her vision improves Plavix 75 mg for secondary stroke prevention. Work-up for other treatable causes of cerebrovascular disease. Observe closely. Hemant Hayes M.D., M.S.P.HHemant Kaur MD Jul 17, 2019 21:34
[2019-07-17] MEDS: Atorvastatin 20mg tab ORAL SCH (21:36)
--- NOTE | 2019-07-17 23:15 | Consultation ---
DATE OF CONSULTATION: 07/17/2019 ENDOCRINOLOGY CONSULTATION CONSULTING PHYSICIAN: Trey Levy M.D. REFERRING PHYSICIAN: Sonya Lan M.D. REASON FOR CONSULTATION: New-onset diabetes. HISTORY OF PRESENT ILLNESS: This is a 59-year-old female who is an -Vietnamese without a history of diabetes, presented to the hospital with increased dizziness, diplopia, thirst, and polyuria. Glucose was significantly elevated. Diagnosed with type 2 diabetes without DKA and I was called to co-manage diabetes during the hospital stay. The patient was started on Levemir last night. This morning, glucose was over 200s. The regular insulin 6 units added to diabetic regimen. The patient was recently seen at [facility]. She was diagnosed with shingles. No pain, except some difficulty with vision. Glucose of 500 without DKA. PAST MEDICAL HISTORY: 1. New diabetes. 2. Hypertension. 3. Shingles. 4. Hyperlipidemia. ALLERGIES: To medication none. MEDICATIONS: At home, reviewed and reconciled. FAMILY HISTORY: Diabetes. PAST SURGICAL HISTORY: None. LABORATORY VALUES: WBC 7, hemoglobin 14, hematocrit 41, platelets of 315. Sodium 137, potassium 3.1, chloride 102, bicarbonate 26, BUN 10, creatinine 0.7, glucose 375. A1c of 13.7. PHYSICAL EXAMINATION: GENERAL: She is awake, but drowsy. VITAL SIGNS: Blood pressure is 150/91, pulse 67, temperature 97.2, respiratory rate of 18. HEENT: Pupils are reactive to light. Sclerae anicteric. NECK: No JVD. No thyromegaly. LUNGS: Clear. HEART: Regular. ABDOMEN: Positive bowel sounds. EXTREMITIES: No clubbing, cyanosis, edema. DIAGNOSIS: Diabetes, new onset. No DKA. PLAN: 1. Increase Levemir to 24 units at bedtime. 2. Discontinue regular insulin. 3. Start NovoLog 8 units before each meal. 4. Start metformin 500 mg t.i.d. 5. NovoLog sliding scale before food and at bedtime. The patient will leave the hospital on insulin injection. Thank you, Dr. Lan for the courtesy of this consultation. Trey Levy M.D. DR: SMITH JOB#: [id number] CC: RIO
--- NOTE | 2019-07-17 23:22 | NUR ---
NURSE NOTES: Per Dr. Lan, "take pt off contact iso and place on standard isolation instead. Lesions have crusted over and scabbed, no longer contagious". Will carry out orders and endorse to AM nurse.
--- NOTE | 2019-07-17 23:45 | Consultation ---
DATE OF CONSULTATION: 07/17/2019 NEUROLOGY CONSULTATION CONSULTING PHYSICIAN: Hemant Hayes M.D. REFERRING PHYSICIAN: Sonya Lan D.O. HISTORY: Ms. Rowena Shirley is a 59-year-old, right-handed, black lady, who does have a long history of hypertension, dyslipidemia, and PCP use. She was functioning relatively well until approximately two weeks ago when she got sick with the shingles involving the her lower lumbar nerve roots on the right side. She was recovering from that when approximately a week ago she started to feel unsteadiness on her feet and dizziness. She is unable to explain what exactly she means by the dizziness, but it was predominantly a sensation of unsteadiness when she would stand or walk. The problem got progressively worse and on 07/16/2019 she started to have double vision. The double vision was noticed when she looked at objects directly and the objects would be up and down. If she looked up and down in addition the double vision would get worse. As a result of that, she presented to the [facility] emergency room. Today, her double vision has improved significantly and only occurs when she looks to the extreme upwards or downwards but when she looks directly at objects the images are now pretty close to each other. She denies any weakness on one side or the other, numbness on one side or the other, problems with speech, problems with language, problems with memory, or other neurological symptoms. She also denies any similar symptoms in the past. Of note is that the last time she used PCP was approximately two weeks ago. PAST MEDICAL HISTORY: Significant for high blood pressure, dyslipidemia, and PCP use for numerous years. FAMILY HISTORY: Her mother had high blood pressure. PERSONAL HISTORY: Home: She lives with a friend. 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 Habits: She used to smoke when she was in school, but stopped smoking numerous years ago. She consumes approximately 3-4 alcoholic drinks in a week. She consumes PCP few times a month. MEDICATIONS: Atorvastatin, insulin, metformin, aspirin 81 mg daily, amlodipine, famotidine, gabapentin 100 mg daily, heparin for DVT prophylaxis, Valtrex, DSS, nifedipine, Robaxin, tramadol, nitroglycerin, Tylenol, Dilaudid, Dulcolax, milk of magnesia, MiraLAX, Zofran, Reglan, Compazine, Ativan, Ambien, and Benadryl. PHYSICAL EXAMINATION: GENERAL: She is a well-developed and well-nourished obese black lady, lying in bed, in no acute distress. VITAL SIGNS: Pulse 78/minute, blood pressure 147/93 mmHg, respirations 18/minute, and temperature 98.9 degrees Fahrenheit. HEAD: Normocephalic and atraumatic. EENT: Examination benign. NECK: No neck rigidity was observed. NEUROLOGICAL EXAMINATION: MENTAL STATUS EXAMINATION: She was awake and alert. She was oriented to person, place, and time. She was able to recall 3/3 words immediately, but could only remember 2/3 words in 1 minute and 3 minutes. She was able to remember presidents, Trump and Obama, but could not remember presidents prior to that. Her mathematical skills were good. Her visuospatial function was preserved. SPEECH: She had no dysarthria. LANGUAGE: She had no aphasia. CRANIAL NERVE EXAMINATION: II: The visual duenas were intact on confrontation testing. III, IV & : The external ocular movements were full, however, she complained of diplopia with the images up and down when she was made to look in the extreme upward gaze and the extreme downward gaze. The pupils were 3 mm in diameter, equal, round, regular, and reactive sluggishly to light. V: She had normal facial sensations, and the temporales, masseters, and pterygoids functioned normally. VII: She had normal facial expressions and no facial asymmetry. VIII: She was able to hear well bilaterally and had no nystagmus. IX: The palate moved symmetrically on phonation. X: She had no hoarseness of voice. XI: The sternocleidomastoids and trapezii functioned normally. XII: The tongue was in the midline without any fasciculations or atrophy. MOTOR SYSTEM: The tone was normal in all four extremities. Examination of muscle mass revealed no focal wasting. Examination of power revealed G 5/5 power in all muscle groups tested. SENSORY EXAMINATION: She had intact sensations to pinprick, light touch, and graphesthesia. COORDINATION: She performed well on pywpbq-em-dgat and bpev-rz-tpsa testing. Romberg test could not be performed because even with eyes open when she was made to stand with feet together she was quite unsteady. REFLEXES: 0 at the biceps, triceps, brachioradialis, knees, and ankles. The plantar responses were flexor bilaterally. STANCE: She had a wide-based but stable stance. GAIT: She walked with a wide-based but stable gait. DIAGNOSTIC IMPRESSION: 1. Ms. Rowena Shirley is a 59-year-old, right-handed, black lady, who does have a long history of hypertension, dyslipidemia, and PCP use. About two weeks ago, she developed the shingles over her right lower lumbar nerve roots and then one week ago she started to feel unsteady on her feet. This was associated with a sensation of being "dizzy." The problem got progressively worse and on 07/16/2019 she started to notice double vision. This problem became quite bothersome and as a result of that she presented to the [facility] emergency room. 2. Today, she feels better. Her double vision is only present when she looks to the extreme up or down gaze and the objects that she sees are up and down. 3. On neurological examination at this time, she does have problems with recent and remote memory, and complains of diplopia when she is made to look all the way up or all the way down. In addition, she has absent deep tendon reflexes, a wide-based stance, and a wide-based gait. 4. Laboratory tests performed thus far have revealed a relatively normal CBC. The chemistry panel revealed hyponatremia with a sodium of 134, a chloride of 97, a blood glucose of 508, and AST 13, ALT 31, and alkaline phosphatase elevated at 122. Her lipid profile revealed a total cholesterol of 230, LDL of 150, and HDL of 40. The Hemoglobin A1c was elevated to 13.3. Her TSH was normal at 1.04 with a free T4 of 0.87. The toxicology screen was positive for phencyclidine. Her urinalysis revealed 2+ leukocyte esterase, 0-2 red blood cells, and 5-10 white blood cells per high-power field. 5. The MRI scan of the brain revealed three punctate infarcts involving a brainstem in the region of the midbrain with one lesion in the center and the other two lesions on either side. She also had acute infarcts involving both thalami. In addition to these acute infarcts, she had chronic infarcts involving the deep white matter bilaterally. 6. The patient's history, neurological examination, laboratory data, and imaging studies are most consistent with acute infarcts involving the midbrain and thalami causing the visual problems and unsteadiness on her feet. 7. The most likely etiology for the patient's multiple infarcts would be small blood vessel cerebrovascular disease due to hypertension, diabetes mellitus, and dyslipidemia. In addition, the PCP abuse could also be contributing. However, other etiologies for stroke should be excluded including cardiac arrhythmia. RECOMMENDATIONS: 1. The patient was made aware of the above-mentioned findings. 2. She was made aware of the ills of PCP use. 3. The patient's blood pressure should be controlled and brought down to the physiological range that is < 120/80 mmHg at all time. 4. Her dyslipidemia should be treated aggressively with an LDL goal of <70. 5. Her diabetes mellitus should be controlled and hemoglobin A1c goal should be < 6%. 6. If the patient's diplopia continues to be bothersome, she may benefit from an eye patch until her vision improves. 7. Her antiplatelet agent should be changed from aspirin to Plavix 75 mg for secondary stroke prevention. 8. She should be worked up thoroughly for other treatable causes of cerebrovascular disease with cardiac monitoring and other laboratory tests. 9. She should be observed closely and depending on how she fares further recommendations will be given. Thank you for entrusting me with the care of Ms. Shirley. I shall follow her with you. Hemant Hayes M.D., M.S.P.H. DR: TIMOTHY JOB#: [id number] RIO
[2019-07-18] VITALS: BP 147/90
--- NOTE | 2019-07-18 01:15 | NUR ---
NURSE NOTES: Pt resting in bed with no acute s/s of distress noted. IV site running to NS at 100 as ordered. Bed alarm on, bed in lowest position. Call light and belongings within reach.
[2019-07-18 04:00] VITALS: BP 143/97
[2019-07-18] MEDS: valACYclovir HCL 500mg tab ORAL SCH ×3 (06:14→22:24)
[2019-07-18] MEDS: metFORMIN 500mg tab ORAL SCH ×3 (06:14→17:01)
[2019-07-18] MEDS: Heparin 5000 units/ml inj SUBQ SCH ×3 (06:24→22:28)
[2019-07-18] MEDS: NovoLOG Insulin Flexpen SUBQ SCH ×4 (06:25→17:02)
[2019-07-18] MEDS: Insulin NovoLOG Flexpen S/S (Mod) SUBQ SCH ×4 (06:25→22:27)
--- NOTE | 2019-07-18 06:30 | General Progress Note ---
Assessment/Plan Problem List: (1) Uncontrolled diabetes mellitus ICD Codes: E11.65 - Type 2 diabetes mellitus with hyperglycemia SNOMED: 50252356, 727482147 (2) HTN (hypertension) ICD Codes: I10 - Essential (primary) hypertension SNOMED: 63589869 (3) PCP (phencyclidine) abuse ICD Codes: F16.10 - Hallucinogen abuse, uncomplicated SNOMED: 6430921 Assessment/Plan: increase Levemir to 30 units qhs increase Novolog to 10 units ac tid continue NISS ac / hs continue Metformin 500 mg tid Subjective Allergies: Coded Allergies: No Known Allergies (Unverified , 07/16/19) All Systems: reviewed and negative except above Subjective events noted fasting glucose is still elevated Item Value Date Time Bedside Blood Glucose 267 mg/dl H 07/18/19 0625 Bedside Blood Glucose 192 mg/dl H 07/17/19 2147 Bedside Blood Glucose 299 mg/dl H 07/17/19 1721 Bedside Blood Glucose 288 mg/dl H 07/17/19 1140 Bedside Blood Glucose 261 mg/dl H 07/17/19 0549 Objective Last 24 Hour Vital Signs Date Time Temp Pulse Resp B/P (MAP) Pulse Ox O2 Delivery O2 Flow Rate FiO2 07/18/19 04:00 71 07/18/19 04:00 98.4 77 18 143/97 (112) 97 07/18/19 00:00 98.5 77 18 147/90 (109) 98 07/18/19 00:00 74 07/17/19 21:00 Room Air 07/17/19 20:00 98.9 78 18 147/93 (111) 96 78 07/17/19 20:00 80 07/17/19 16:00 98.2 79 20 149/91 (110) 98 07/17/19 16:00 80 07/17/19 12:00 97.7 67 18 150/91 (110) 97 07/17/19 12:00 70 07/17/19 10:47 79 140/92 07/17/19 09:00 Room Air 07/17/19 08:00 97.9 79 18 140/92 (108) 98 07/17/19 08:00 79 Intake and Output 07/17/19 07/18/19 19:00 07:00 Intake Total 1040 ml 300 ml Balance 1040 ml 300 ml Intake Oral 740 ml IV Total 300 ml 300 ml # Voids 5 # Bowel Movements 1 Laboratory Tests 07/17/19 06:30: Erythrocyte Sedimentation Rate 3, Rapid Plasma Reagin [Pending] 07/17/19 06:47: White Blood Count 7.1, Red Blood Count 4.66, Hemoglobin 14.1, Hematocrit 41.5, Mean Corpuscular Volume 89, Mean Corpuscular Hemoglobin 30.3, Mean Corpuscular Hemoglobin Concent 34.1, Red Cell Distribution Width 11.1L, Platelet Count 318, Mean Platelet Volume 7.1, Neutrophils (%) (Auto) 43.4L, Lymphocytes (%) (Auto) 45.1H, Monocytes (%) (Auto) 8.4, Eosinophils (%) (Auto) 2.2, Basophils (%) (Auto ) 1.0, Sodium Level 137, Potassium Level 3.1L, Chloride Level 102, Carbon Dioxide Level 26, Anion Gap 10, Blood Urea Nitrogen 10, Creatinine 0.7, Estimat Glomerular Filtration Rate > 60, Glucose Level 275#H, Calcium Level 8.8, Magnesium Level 1.8, Triglycerides Level 258H, Cholesterol Level 239H, LDL Cholesterol 158H, HDL Cholesterol 38L, Cholesterol/HDL Ratio 6.3H Height (Feet): 5 Height (Inches): 7.00 Weight (Pounds): 206 General Appearance: no apparent distress Neck: normal alignment Cardiovascular: normal rate Respiratory/Chest: lungs clear Abdomen: normal bowel sounds Objective Current Medications Medications (Trade) Dose Ordered Sig/Artem Route PRN Reason Start Time Stop Time Status Last Admin Dose Admin Acetaminophen (Tylenol) 650 mg Q4H PRN ORAL Mild Pain (Pain Scale 1-3) 07/16/19 17:15 08/15/19 17:14 Acetaminophen (Tylenol) 650 mg Q4H PRN ORAL fever 07/16/19 17:15 08/15/19 17:14 Acetaminophen (Tylenol) 650 mg Q4H PRN RECTAL Mild Pain (Pain Scale 1-3) 07/16/19 17:15 08/15/19 17:14 Acetaminophen (Tylenol) 650 mg Q4H PRN RECTAL fever 07/16/19 17:15 08/15/19 17:14 Amlodipine Besylate (Norvasc) 5 mg DAILY ORAL 07/17/19 10:30 08/16/19 10:29 07/17/19 10:47 Aspirin (ASA) 81 mg DAILY ORAL 07/17/19 10:30 08/16/19 10:29 07/17/19 10:47 Atorvastatin Calcium (Lipitor) 40 mg BEDTIME ORAL 07/17/19 21:00 08/16/19 20:59 07/17/19 21:36 Bisacodyl (Dulcolax) 10 mg DAILYPRN PRN RECTAL Constipation 07/16/19 17:15 08/15/19 17:14 Clopidogrel Bisulfate (Plavix) 75 mg DAILY ORAL 07/18/19 09:00 08/17/19 08:59 Dextrose (Dextrose 50%) 25 ml Q30M PRN IV Hypoglycemia 07/17/19 13:00 08/16/19 12:59 Dextrose (Dextrose 50%) 50 ml Q30M PRN IV Hypoglycemia 07/17/19 13:00 08/16/19 12:59 Diphenhydramine HCl (Benadryl) 25 mg Q6H PRN ORAL Itching/Pruritis 07/16/19 17:15 08/15/19 17:14 Docusate Sodium (Colace) 100 mg EVERY 12 HOURS ORAL 07/16/19 21:00 08/15/19 20:59 07/17/19 21:35 Famotidine (Pepcid) 40 mg DAILY ORAL 07/17/19 09:00 08/16/19 08:59 07/17/19 09:14 Gabapentin (Neurontin) 100 mg DAILY ORAL 07/17/19 09:00 08/16/19 08:59 07/17/19 09:14 Heparin Sodium (Porcine) (Heparin 5000 units/ml) 5,000 units EVERY 8 HOURS SUBQ 07/16/19 22:00 08/15/19 21:59 07/18/19 06:24 Hydromorphone HCl (Dilaudid) 0.5 mg Q4H PRN IVP severe pain 07/16/19 17:15 07/23/19 17:14 Insulin Aspart (NovoLOG) 8 units NOVOTIAC SUBQ 07/17/19 16:50 08/16/19 16:49 07/18/19 06:25 Insulin Aspart (NovoLOG) No Dose BEFORE MEALS AND HS SUBQ 07/16/19 21:00 08/15/19 20:59 07/18/19 06:25 Insulin Detemir (Levemir) 24 units BEDTIME SUBQ 07/17/19 21:00 08/16/19 20:59 07/17/19 21:47 Lorazepam (Ativan) 1 mg Q4H PRN ORAL For Anxiety 07/16/19 17:15 07/23/19 17:14 Magnesium Hydroxide (Mom) 30 ml HSPRN PRN ORAL Constipation 07/16/19 17:15 08/15/19 17:14 Metformin HCl (Glucophage) 500 mg TIAC ORAL 07/17/19 16:30 08/16/19 16:29 07/18/19 06:14 Methocarbamol (Robaxin) 500 mg TIDPRN PRN ORAL spaspm 07/16/19 17:30 08/15/19 17:29 Metoclopramide HCl (Reglan) 10 mg Q6H PRN IVP Nausea & Vomiting 07/16/19 17:15 08/15/19 17:14 Nifedipine (Adalat) 10 mg Q8H PRN ORAL sbp >175, dbp >100 07/16/19 20:30 08/15/19 20:29 Nitroglycerin (Ntg) 0.4 mg Q5M PRN SL Prn Chest Pain 07/16/19 17:15 08/15/19 17:14 Ondansetron HCl (Zofran) 4 mg Q6H PRN IVP Nausea & Vomiting 07/16/19 17:15 08/15/19 17:14 Polyethylene Glycol (Miralax) 17 gm DAILYPRN PRN ORAL Constipation 07/16/19 17:15 08/15/19 17:14 Prochlorperazine (Compazine) 10 mg Q6H PRN IVP Nausea & Vomiting 07/16/19 17:15 08/15/19 17:14 Sodium Chloride 1,000 ml @ 100 mls/hr Q10H IVLG 07/16/19 20:00 08/15/19 19:59 07/18/19 02:22 Tramadol HCl (Ultram) 50 mg Q6H PRN ORAL mod pain 07/16/19 17:30 07/23/19 17:29 Valacyclovir HCl (Valtrex) 1,000 mg Q8HR ORAL 07/16/19 22:00 08/15/19 21:59 07/18/19 06:14 Zolpidem Tartrate (Ambien) 5 mg DAILYPRN PRN ORAL Insomnia 07/16/19 17:15 07/23/19 17:14 Trey Levy MD Jul 18, 2019 06:30
[2019-07-18 06:47] LABS: BASOPHILS % (AUTO) 0.9 % (0.0-2.0); EOSINOPHILS % (AUTO) 1.9 % (0.0-3.0); HEMATOCRIT 41.2 % (37.0-47.0); HEMOGLOBIN 13.8 G/DL (12.0-16.0); LYMPHOCYTES % (AUTO) 46.1 % (20.0-45.0); MEAN CORPUSCULAR VOLUME 91 FL (80-99); NEUTROPHILS % (AUTO) 42.1 % (45.0-75.0); PLATELET COUNT 312 K/UL (150-450); RED BLOOD COUNT 4.55 M/UL (4.20-5.40); RED CELL DISTRIBUTION WIDTH 11.5 % (11.6-14.8); WHITE BLOOD COUNT 6.9 K/UL (4.8-10.8)
[2019-07-18 07:22] LABS: ALANINE AMINOTRANSFERASE 26 U/L (12-78); ALBUMIN/GLOBULIN RATIO 0.8 (1.0-2.7); ALKALINE PHOSPHATASE 104 U/L (46-116); ANION GAP 10 mmol/L (5-15); ASPARTATE AMINO TRANSFERASE 16 U/L (15-37); BILIRUBIN,TOTAL 0.3 MG/DL (0.2-1.0); BLOOD UREA NITROGEN 15 mg/dL (7-18); CALCIUM 9.4 MG/DL (8.5-10.1); CARBON DIOXIDE 25 MMOL/L (21-32); CHLORIDE 102 MMOL/L (98-107); CREATININE 0.8 MG/DL (0.55-1.30); POTASSIUM 3.5 MMOL/L (3.5-5.1); SODIUM 136 MMOL/L (136-145)
--- NOTE | 2019-07-18 07:56 | NUR ---
HAND-OFF: Report given to DAVID Linton.
--- NOTE | 2019-07-18 07:57 | NUR ---
NURSE NOTES: pt sleeping and food tray is at bedside. Pt in room air no senior health educator, no signs of cardiac or respiratory distress at this time. Bed is locked and in lowest position. Call light is within reach. Pt will be having a carotid vertebral duplex scan today. Will continue to follow plan of care.
[2019-07-18 08:00] VITALS: BP 153/92
--- NOTE | 2019-07-18 09:05 | NUR ---
CASE MANAGEMENT:REVIEW 07/18/19 SI: MULTIPLE ACUTE LACUNAR INFARCTS IN MIDBRAIN AND THALAMI 98.4 77 18 143/97 97% ON RA GLUCOSE+317 IS: IVF@100/HR PLAVIX PO QD LEVEMIR SQ QHS NOVOLOG SQ TID AC ASA PO QD NORVASC PO QD PEPCID PO QD HEPARIN SQ Q8HR : TELEMETRY STATUS PLAN: PATIENT IS FROM HOME BUT MAY REQUIRE REHAB UPON DISCHARGE WORKING WITH PHYSICAL THERAPY ~ AMBULATING 50FT AND VERY UNSTEADY
[2019-07-18] MEDS: traMADol 50mg tab ORAL PRN (09:34)
[2019-07-18] MEDS: Aspirin Baby 81mg ORAL SCH (09:40)
[2019-07-18] MEDS: Docusate 100mg cap ORAL SCH ×2 (09:41→22:24)
--- NOTE | 2019-07-18 10:38 | General Progress Note ---
Assessment/Plan Assessment/Plan: 59 yo F PMH of HTN present complaining of diploplia for 5 days, ataxia, and found to have hyperglycemia in the ed # Diploplia/weakness in setting of substance abuse (PCP) -Patient medically cleared for discharge to nursing facility or rehab - Neurology consult, appreciate reqs - Psyche consult appreciate reqs - f/u final read MRA head and neck: Reviewed - ED reports acute infarcts and dw [facility] [place] [facility] with no TPA, pt out of window - tele - ekg and troponins: Reviewed - echo follow-up - sw for substance abuse - PT OT: Recommend nursing facility or rehab - check flp; elevated, goal LDL less than 70 - statin -Blood pressure goal less than 120/80, add Coreg 3.25 mg p.o. twice daily, increase Norvasc to 10 mg daily # New onset DM2 - check a1c: 13 - check FLP: Reviewed -Levemir titrated by endocrinology - Endo consult, appreciate reqs - accuchecks qac and qhs - diabetic diet - diabetic education # Shingles - lesions are crusted over, patient does not need iso - valacyclovir 1g tid x 6 dys (07/16-) - gabapentin for pain control - pain control, see orders # DESI, prerenal and resolved DC IV fluids - monitor bmp - avoid nephrotoxic meds - UA: Reviewed - monitor I/O # Uncontrolled HTN -Continue meds as per above - nifedipine prn FULL CODE time of note may not reflect time of my encounter Subjective Date patient seen: Jul 18, 2019 Allergies: Coded Allergies: No Known Allergies (Unverified , 07/16/19) Subjective Continues to complain of blurry vision. Glucose continues to be uncontrolled, insulin titrated up by endocrinology Objective Last 24 Hour Vital Signs Date Time Temp Pulse Resp B/P (MAP) Pulse Ox O2 Delivery O2 Flow Rate FiO2 07/18/19 09:41 79 153/92 07/18/19 08:00 98.5 79 18 153/92 (112) 97 07/18/19 04:00 71 07/18/19 04:00 98.4 77 18 143/97 (112) 97 07/18/19 00:00 98.5 77 18 147/90 (109) 98 07/18/19 00:00 74 07/17/19 21:00 Room Air 07/17/19 20:00 98.9 78 18 147/93 (111) 96 78 07/17/19 20:00 80 07/17/19 16:00 98.2 79 20 149/91 (110) 98 07/17/19 16:00 80 07/17/19 12:00 97.7 67 18 150/91 (110) 97 07/17/19 12:00 70 07/17/19 10:47 79 140/92 Intake and Output 07/17/19 07/18/19 18:59 06:59 Intake Total 940 ml 600 ml Output Total 600 ml Balance 940 ml 0 ml Intake Oral 740 ml 200 ml IV Total 200 ml 400 ml Output Urine Total 600 ml # Voids 5 # Bowel Movements 1 Laboratory Tests 07/18/19 06:17: White Blood Count 6.9, Red Blood Count 4.55, Hemoglobin 13.8, Hematocrit 41.2, Mean Corpuscular Volume 91, Mean Corpuscular Hemoglobin 30.4, Mean Corpuscular Hemoglobin Concent 33.5, Red Cell Distribution Width 11.5L, Platelet Count 312, Mean Platelet Volume 6.6, Neutrophils (%) (Auto) 42.1L, Lymphocytes (%) (Auto) 46.1H, Monocytes (%) (Auto) 9.0, Eosinophils (%) (Auto) 1.9, Basophils (%) (Auto ) 0.9, Sodium Level 136, Potassium Level 3.5, Chloride Level 102, Carbon Dioxide Level 25, Anion Gap 10, Blood Urea Nitrogen 15, Creatinine 0.8, Estimat Glomerular Filtration Rate > 60, Glucose Level 317H, Calcium Level 9.4, Total Bilirubin 0.3, Aspartate Amino Transf (AST/SGOT) 16, Alanine Aminotransferase ( ALT/SGPT) 26, Alkaline Phosphatase 104, Total Protein 6.9, Albumin 3.0L, Globulin 3.9, Albumin/Globulin Ratio 0.8L Height (Feet): 5 Height (Inches): 7.00 Weight (Pounds): 206 Objective GENERAL: No acute distress, sitting comfortably, alert HEENT: NCAT, non-icteric eyes, pupils PERRLA Neck: No cervical lymphadenopathy, trachea midline CV: Regular rate and rhythm, no murmurs rubs or gallops RESP: Clear to auscultation bilaterally, no wheezes/rhonchi/crackles EXT: Normal muscle tone, +5/5 muscle strength NEURO: No changes Sonya Lan DO Jul 18, 2019 10:38
[2019-07-18 12:00] VITALS: BP 144/94
--- NOTE | 2019-07-18 13:35 | NUR ---
*-* INSURANCE *-* ALL CLINICALS AND REVIEWS HAVE BEEN FAXED TO: NATALIE MOSQUEDA:DELONTE F: [phone]
--- NOTE | 2019-07-18 15:03 | Neurology Progress Note ---
Interim History Interim History Interim History Ms. Shirley feels better. Her vision is better today. She has no double vision today. However when she moves her eyes up and down she feels uncomfortable. The mind is clear. Her spirits are little low. She denies any new neurological symptoms. She denies any weakness on one side of the other, numbness on one side of the other, problems with speech, problems with language, problems with memory, other neurological symptoms. Review of Systems Neuro Review of Systems Benign. Objective Physical Exam Last Vital Signs Date Time Temp Pulse Resp B/P (MAP) Pulse Ox O2 Delivery O2 Flow Rate FiO2 07/18/19 12:40 73 144/94 07/18/19 08:00 98.5 18 97 07/17/19 21:00 Room Air Laboratory Tests Test 07/18/19 06:17 White Blood Count 6.9 K/UL (4.8-10.8) Red Blood Count 4.55 M/UL (4.20-5.40) Hemoglobin 13.8 G/DL (12.0-16.0) Hematocrit 41.2 % (37.0-47.0) Mean Corpuscular Volume 91 FL (80-99) Mean Corpuscular Hemoglobin 30.4 PG (27.0-31.0) Mean Corpuscular Hemoglobin Concent 33.5 G/DL (32.0-36.0) Red Cell Distribution Width 11.5 % (11.6-14.8) L Platelet Count 312 K/UL (150-450) Mean Platelet Volume 6.6 FL (6.5-10.1) Neutrophils (%) (Auto) 42.1 % (45.0-75.0) L Lymphocytes (%) (Auto) 46.1 % (20.0-45.0) H Monocytes (%) (Auto) 9.0 % (1.0-10.0) Eosinophils (%) (Auto) 1.9 % (0.0-3.0) Basophils (%) (Auto) 0.9 % (0.0-2.0) Sodium Level 136 MMOL/L (136-145) Potassium Level 3.5 MMOL/L (3.5-5.1) Chloride Level 102 MMOL/L (98-107) Carbon Dioxide Level 25 MMOL/L (21-32) Anion Gap 10 mmol/L (5-15) Blood Urea Nitrogen 15 mg/dL (7-18) Creatinine 0.8 MG/DL (0.55-1.30) Estimat Glomerular Filtration Rate > 60 mL/min (>60) Glucose Level 317 MG/DL (74-106) H Calcium Level 9.4 MG/DL (8.5-10.1) Total Bilirubin 0.3 MG/DL (0.2-1.0) Aspartate Amino Transf (AST/SGOT) 16 U/L (15-37) Alanine Aminotransferase (ALT/SGPT) 26 U/L (12-78) Alkaline Phosphatase 104 U/L (46-116) Total Protein 6.9 G/DL (6.4-8.2) Albumin 3.0 G/DL (3.4-5.0) L Globulin 3.9 g/dL Albumin/Globulin Ratio 0.8 (1.0-2.7) L Neurologic Exam Objective PHYSICAL EXAMINATION: GENERAL: She is a well-developed and well-nourished obese black lady, lying in bed, in no acute distress. HEAD: Normocephalic and atraumatic. EENT: Examination benign. NECK: No neck rigidity was observed. NEUROLOGICAL EXAMINATION: MENTAL STATUS EXAMINATION: She was awake and alert. She was oriented to person, place, and time. She was able to recall 3/3 words immediately, but could only remember 2/3 words in 1 minute and 3 minutes. She was able to remember presidents, Trump and Obama, but could not remember presidents prior to that. Her mathematical skills were good. Her visuospatial function was preserved. SPEECH: She had no dysarthria. LANGUAGE: She had no aphasia. CRANIAL NERVE EXAMINATION: II: The visual duenas were intact on confrontation testing. III, IV & : The external ocular movements were full, she had no diplopia. The pupils were 3 mm in diameter, equal, round, regular, and reactive sluggishly to light. V: She had normal facial sensations, and the temporales, masseters, and pterygoids functioned normally. VII: She had normal facial expressions and no facial asymmetry. VIII: She was able to hear well bilaterally and had no nystagmus. IX: The palate moved symmetrically on phonation. X: She had no hoarseness of voice. XI: The sternocleidomastoids and trapezii functioned normally. XII: The tongue was in the midline without any fasciculations or atrophy. MOTOR SYSTEM: The tone was normal in all four extremities. Examination of muscle mass revealed no focal wasting. Examination of power revealed G 5/5 power in all muscle groups tested. SENSORY EXAMINATION: She had intact sensations to pinprick, light touch, and graphesthesia. COORDINATION: She performed well on [id number] and [id number] testing. Romberg test could not be performed because even with eyes open when she was made to stand with feet together she was quite unsteady. REFLEXES: 0 at the biceps, triceps, brachioradialis, knees, and ankles. The plantar responses were flexor bilaterally. STANCE: She had a wide-based but stable stance. GAIT: She walked with a wide-based but stable gait. Impression/Recommendations Diagnostic Impression 1. Ms. Rowena Shirley is a 59-year-old, right-handed, black lady, who does have a long history of hypertension, dyslipidemia, and PCP use. About two weeks ago, she developed the shingles over her right lower lumbar nerve roots and then one week ago she started to feel unsteady on her feet. This was associated with a sensation of being "dizzy." The problem got progressively worse and on 2018 she started to notice double vision. This problem became quite bothersome and as a result of that she presented to the [facility] emergency room. 2. She feels better. Her vision is better today. She has no double vision today. However when she moves her eyes up and down she feels uncomfortable. The mind is clear. Her spirits are little low. She denies any new neurological symptoms. 3. On neurological examination at this time, she does have problems with recent and remote memory. The diplopia has resolved. She has absent deep tendon reflexes, a wide-based stance, and a wide-based gait. 4. Laboratory tests on my initial evaluation revealed a relatively normal CBC. The chemistry panel revealed hyponatremia with a sodium of 134, a chloride of 97 , a blood glucose of 508, and AST 13, ALT 31, and alkaline phosphatase elevated at 122. Her lipid profile revealed a total cholesterol of 230, LDL of 150, and HDL of 40. The Hemoglobin A1c was elevated to 13.3. Her TSH was normal at 1.04 with a free T4 of 0.87. The toxicology screen was positive for phencyclidine. Her urinalysis revealed 2+ leukocyte esterase, 0-2 red blood cells, and 5-10 white blood cells per high-power field. 5. The MRI scan of the brain revealed three punctate infarcts involving a brainstem in the region of the midbrain with one lesion in the center and the other two lesions on either side. She also had acute infarcts involving both thalami. In addition to these acute infarcts, she had chronic infarcts involving the deep white matter bilaterally. 6. The patient's history, neurological examination, laboratory data, and imaging studies are most consistent with acute infarcts involving the midbrain and thalami causing the visual problems and unsteadiness on her feet. 7. The most likely etiology for the patient's multiple infarcts would be small blood vessel cerebrovascular disease due to hypertension, diabetes mellitus, and dyslipidemia. In addition, the PCP abuse could also be contributing. However, other etiologies for stroke should be excluded including cardiac arrhythmia. Recommendations 1. The patient was given an explanation of the above-mentioned findings. 2. She was again made aware of the ills of PCP use. 3. The patient's blood pressure should be controlled and brought down to the physiological range that is < 120/80 mmHg at all time. 4. Her dyslipidemia should be treated aggressively with an LDL goal of <70. 5. Her diabetes mellitus should be controlled and hemoglobin A1c goal should be < 6%. 6. Plavix 75 mg for secondary stroke prevention. 7. Observe closely. Hemant Hayes M.D., M.S.P.H. Hemant Hayes MD Jul 18, 2019 15:03
[2019-07-18 16:00] VITALS: BP 147/89
--- NOTE | 2019-07-18 17:06 | NUR ---
DISCHARGE PLANNING PATIENT HAS BEEN REFERRED TO [facility]
--- NOTE | 2019-07-18 19:45 | Progress Note ---
DATE: 07/18/2019 SUBJECTIVE: The patient is in bed, no acute distress. She has medication seeking behaviors. The patient is able to answer the questions appropriately. Doing better today, less anxious. MENTAL STATUS EXAMINATION: The patient is alert, oriented times self, place, and situation she is in. Mood is neutral. Affect is full range. Congruent with mood. Thought process is concrete. Thought content, no suicidal or homicidal ideations. ASSESSMENT: 1. Polysubstance dependence, PCP abuse. 2. Anxiety disorder. PLAN: 1. I recommend antidepressant for the patient. The patient is reluctant to take any psychotropic medication. The patient is on Ativan as needed. 2. The patient motivated to stop using, does not believe she has addiction. 3. We will continue to follow and readjust the medications. Bernard Saucedo M.D. DR: Jamie JOB#: [id number] CC:
[2019-07-18 20:00] VITALS: BP 133/90
--- NOTE | 2019-07-18 20:21 | NUR ---
HAND-OFF: Report given to Isa/rn, pt in stable condition.
[2019-07-18] MEDS: Atorvastatin 20mg tab ORAL SCH (22:24)
[2019-07-18] MEDS: Levemir Flexpen SUBQ SCH (22:26)
[2019-07-19] VITALS: BP 140/96
--- NOTE | 2019-07-19 02:18 | NUR ---
NURSE NOTES: Received pt and report from DAVID Linton. Observed pt resting in bed with both eyes open and family member at bedside. Pt is A/Ox3. personnel monitor is in placed, IV site intact, asymptomatic, and patent. Bed is in the lowest position and locked, call light within reach. No signs/symptoms of acute distress noted at this time. Will continue plan of care.
[2019-07-19 04:00] VITALS: BP 141/89
[2019-07-19] MEDS: valACYclovir HCL 500mg tab ORAL SCH ×3 (06:10→21:19)
[2019-07-19] MEDS: metFORMIN 500mg tab ORAL SCH ×3 (06:10→17:30)
[2019-07-19] MEDS: NovoLOG Insulin Flexpen SUBQ SCH ×3 (06:12→17:35)
[2019-07-19] MEDS: Insulin NovoLOG Flexpen S/S (Mod) SUBQ SCH ×4 (06:13→21:22)
[2019-07-19] MEDS: Heparin 5000 units/ml inj SUBQ SCH ×3 (06:14→21:20)
--- NOTE | 2019-07-19 07:26 | NUR ---
HAND-OFF: Report given to DAVID Linton.
[2019-07-19 08:00] VITALS: BP 132/85
--- NOTE | 2019-07-19 08:11 | NUR ---
pt in bed having breakfast Aox3 forgetful at times. Pt on podiatric aide no signs or cardiac or respiratory distress. Bed is locked and in lowest position. Call light is within reach. Will continue to follow plan of care.
[2019-07-19] MEDS: Docusate 100mg cap ORAL SCH ×2 (09:00→21:19)
[2019-07-19] MEDS: Aspirin Baby 81mg ORAL SCH (09:01)
[2019-07-19 12:00] VITALS: BP 156/100
--- NOTE | 2019-07-19 12:44 | General Progress Note ---
Assessment/Plan Assessment/Plan: 59 yo F PMH of HTN present complaining of diploplia for 5 days, ataxia, and found to have hyperglycemia in the ed # Diploplia/weakness in setting of substance abuse (PCP) -Patient medically cleared for discharge to nursing facility or rehab - Neurology consult, appreciate reqs - Psyche consult appreciate reqs - f/u final read MRA head and neck: Reviewed - ED reports acute infarcts and dw [facility] [facility] with no TPA, pt out of window - tele - ekg and troponins: Reviewed - echo follow-up: Reviewed within normal limits - sw for substance abuse - PT OT: Recommend nursing facility or rehab - check flp; elevated, goal LDL less than 70 - statin -Blood pressure goal less than 120/80, increase Coreg, continue Norvasc #Metabolic encephalopathy secondary to PCP and chronic vascular changes -Continue management of blood pressure, diabetes -Check B12 and folate -RPR negative # New onset DM2 - check a1c: 13 - check FLP: Reviewed -Levemir titrated by endocrinology, no glucose check this morning - Endo consult, appreciate reqs - accuchecks qac and qhs - diabetic diet - diabetic education # Shingles - lesions are crusted over, patient does not need iso - valacyclovir 1g tid x 6 dys (07/16-) - gabapentin for pain control - pain control, see orders # DESI, prerenal and resolved - monitor bmp - avoid nephrotoxic meds - UA: Reviewed - monitor I/O # Uncontrolled HTN -Continue meds as per above - nifedipine prn FULL CODE time of note may not reflect time of my encounter Subjective Date patient seen: Jul 19, 2019 Allergies: Coded Allergies: No Known Allergies (Unverified , 07/16/19) All Systems: reviewed and negative except above Subjective Patient fatigue. Denies headache, shortness of breath. Objective Last 24 Hour Vital Signs Date Time Temp Pulse Resp B/P (MAP) Pulse Ox O2 Delivery O2 Flow Rate FiO2 07/19/19 09:01 76 132/85 07/19/19 09:00 76 132/85 07/19/19 08:30 Room Air 07/19/19 08:00 98.2 76 18 132/85 (101) 98 07/19/19 08:00 75 07/19/19 04:00 75 07/19/19 04:00 98.1 65 18 141/89 (106) 95 07/19/19 00:00 98.4 73 17 140/96 (111) 96 07/19/19 00:00 70 07/18/19 22:24 80 133/90 07/18/19 21:00 Room Air 07/18/19 20:00 81 07/18/19 20:00 98.8 80 18 133/90 (104) 97 07/18/19 16:00 70 07/18/19 16:00 97.8 82 19 147/89 (108) 97 Intake and Output 07/18/19 07/19/19 18:59 06:59 Intake Total 800 ml Balance 800 ml Intake Oral 800 ml # Voids 3 2 # Bowel Movements 3 1 Height (Feet): 5 Height (Inches): 7.00 Weight (Pounds): 206 Objective GENERAL: No acute distress, sitting comfortably, alert HEENT: NCAT, non-icteric eyes, pupils PERRLA Neck: No cervical lymphadenopathy, trachea midline CV: Regular rate and rhythm, no murmurs rubs or gallops RESP: Clear to auscultation bilaterally, no wheezes/rhonchi/crackles EXT: Normal muscle tone, +5/5 muscle strength NEURO: No changes Sonya Lan DO Jul 19, 2019 12:44
--- NOTE | 2019-07-19 13:36 | Neurology Progress Note ---
Interim History Interim History Interim History Ms. Shirley feels better. Her vision is about the same as yesterday. She has no double vision today, however, when she moves her eyes up and down she feels uncomfortable. The mind is clear. Her spirits are little low. She denies any new neurological symptoms. She denies any weakness on one side of the other, numbness on one side of the other, problems with speech, problems with language, problems with memory, other neurological symptoms. Review of Systems Neuro Review of Systems Benign. Objective Physical Exam Last Vital Signs Date Time Temp Pulse Resp B/P (MAP) Pulse Ox O2 Delivery O2 Flow Rate FiO2 07/19/19 09:01 76 132/85 07/19/19 08:30 Room Air 07/19/19 08:00 98.2 18 98 Neurologic Exam Objective PHYSICAL EXAMINATION: GENERAL: She is a well-developed and well-nourished obese black lady, lying in bed, in no acute distress. HEAD: Normocephalic and atraumatic. EENT: Examination benign. NECK: No neck rigidity was observed. NEUROLOGICAL EXAMINATION: MENTAL STATUS EXAMINATION: She was awake and alert. She was oriented to person, place, and time. She was able to recall 3/3 words immediately, but could only remember 2/3 words in 1 minute and 3 minutes. She was able to remember presidents, Trump and Obama, but could not remember presidents prior to that. Her mathematical skills were good. Her visuospatial function was preserved. SPEECH: She had no dysarthria. LANGUAGE: She had no aphasia. CRANIAL NERVE EXAMINATION: II: The visual duenas were intact on confrontation testing. III, IV & : The external ocular movements were full, she had no diplopia. The pupils were 3 mm in diameter, equal, round, regular, and reactive sluggishly to light. V: She had normal facial sensations, and the temporales, masseters, and pterygoids functioned normally. VII: She had normal facial expressions and no facial asymmetry. VIII: She was able to hear well bilaterally and had no nystagmus. IX: The palate moved symmetrically on phonation. X: She had no hoarseness of voice. XI: The sternocleidomastoids and trapezii functioned normally. XII: The tongue was in the midline without any fasciculations or atrophy. MOTOR SYSTEM: The tone was normal in all four extremities. Examination of muscle mass revealed no focal wasting. Examination of power revealed G 5/5 power in all muscle groups tested. SENSORY EXAMINATION: She had intact sensations to pinprick, light touch, and graphesthesia. COORDINATION: She performed well on [id number] and ujaq-hw-rspp testing. Romberg test could not be performed because even with eyes open when she was made to stand with feet together she was quite unsteady. REFLEXES: 0 at the biceps, triceps, brachioradialis, knees, and ankles. The plantar responses were flexor bilaterally. STANCE: She had a wide-based but stable stance. GAIT: She walked with a wide-based but stable gait. Impression/Recommendations Diagnostic Impression 1. Ms. Rowena Shirley is a 59-year-old, right-handed, black lady, who does have a long history of hypertension, dyslipidemia, and PCP use. About two weeks ago, she developed the shingles over her right lower lumbar nerve roots and then one week ago she started to feel unsteady on her feet. This was associated with a sensation of being "dizzy." The problem got progressively worse and on 2018 she started to notice double vision. This problem became quite bothersome and as a result of that she presented to the [facility] emergency room. 2. She feels better. Her vision is about the same as yesterday. She has no double vision today, however, when she moves her eyes up and down she feels uncomfortable. The mind is clear. Her spirits are little low. She denies any new neurological symptoms. 3. On neurological examination, at this time, she does have problems with recent and remote memory. The diplopia has resolved. She has absent deep tendon reflexes, a wide-based stance, and a wide-based gait. 4. Laboratory tests on my initial evaluation revealed a relatively normal CBC. The chemistry panel revealed hyponatremia with a sodium of 134, a chloride of 97 , a blood glucose of 508, and AST 13, ALT 31, and alkaline phosphatase elevated at 122. Her lipid profile revealed a total cholesterol of 230, LDL of 150, and HDL of 40. The Hemoglobin A1c was elevated to 13.3. Her TSH was normal at 1.04 with a free T4 of 0.87. The toxicology screen was positive for phencyclidine. Her urinalysis revealed 2+ leukocyte esterase, 0-2 red blood cells, and 5-10 white blood cells per high-power field. 5. The MRI scan of the brain revealed three punctate infarcts involving a brainstem in the region of the midbrain with one lesion in the center and the other two lesions on either side. She also had acute infarcts involving both thalami. In addition to these acute infarcts, she had chronic infarcts involving the deep white matter bilaterally. 6. The patient's history, neurological examination, laboratory data, and imaging studies are most consistent with acute infarcts involving the midbrain and thalami causing the visual problems and unsteadiness on her feet. 7. The most likely etiology for the patient's multiple infarcts would be small blood vessel cerebrovascular disease due to hypertension, diabetes mellitus, and dyslipidemia. In addition, the PCP abuse could also be contributing. However, other etiologies for stroke should be excluded including cardiac arrhythmia. Recommendations 1. The patient was given an explanation of the above-mentioned findings. 2. She was again made aware of the ills of PCP use. 3. The patient's blood pressure should be controlled and brought down to the physiological range that is < 120/80 mmHg at all times. 4. Her dyslipidemia should be treated aggressively with an LDL goal of <70. 5. Her diabetes mellitus should be controlled and hemoglobin A1c goal should be < 6%. 6. Plavix 75 mg for secondary stroke prevention. 7. Observe closely. Hemant Hayes M.D., M.S.P.H. Hemant Hayes MD Jul 19, 2019 13:36
[2019-07-19 15:48] VITALS: BP 149/95
--- NOTE | 2019-07-19 20:00 | NUR ---
NURSE NOTES: Pt is resting in bed with no acute s/s of distress noted. IV site patent, asymptomatic, running NS at 100 as ordered. Bed alarm on, bed in lowest position, locked, side rails x2. Call light and belongings within reach. will continue to monitor
--- NOTE | 2019-07-19 20:03 | NUR ---
HAND-OFF: Report given to Emilia/dung pt in stable condition.
[2019-07-19 20:07] VITALS: BP 145/87
[2019-07-19] MEDS: Carvedilol 6.25mg Tab ORAL SCH (21:18)
[2019-07-19] MEDS: Atorvastatin 20mg tab ORAL SCH (21:19)
[2019-07-19] MEDS: Levemir Flexpen SUBQ SCH (21:21)
[2019-07-20 00:11] VITALS: BP 129/85
[2019-07-20 04:01] VITALS: BP 154/94
[2019-07-20 06:09] LABS: BASOPHILS % (AUTO) 1.2 % (0.0-2.0); EOSINOPHILS % (AUTO) 1.4 % (0.0-3.0); HEMATOCRIT 41.1 % (37.0-47.0); HEMOGLOBIN 13.8 G/DL (12.0-16.0); LYMPHOCYTES % (AUTO) 41.5 % (20.0-45.0); MEAN CORPUSCULAR VOLUME 91 FL (80-99); MONOCYTES % (AUTO) 8.4 % (1.0-10.0); NEUTROPHILS % (AUTO) 47.5 % (45.0-75.0); PLATELET COUNT 305 K/UL (150-450); RED BLOOD COUNT 4.52 M/UL (4.20-5.40); RED CELL DISTRIBUTION WIDTH 11.5 % (11.6-14.8); WHITE BLOOD COUNT 8.4 K/UL (4.8-10.8)
[2019-07-20 06:38] LABS: ANION GAP 11 mmol/L (5-15); BLOOD UREA NITROGEN 14 mg/dL (7-18); CALCIUM 9.9 MG/DL (8.5-10.1); CARBON DIOXIDE 25 MMOL/L (21-32); CHLORIDE 105 MMOL/L (98-107); CREATININE 0.8 MG/DL (0.55-1.30); POTASSIUM 3.1 MMOL/L (3.5-5.1); SODIUM 141 MMOL/L (136-145)
--- NOTE | 2019-07-20 07:10 | General Progress Note ---
Assessment/Plan Problem List: (1) Uncontrolled diabetes mellitus ICD Codes: E11.65 - Type 2 diabetes mellitus with hyperglycemia SNOMED: 12533850, 487445862 (2) HTN (hypertension) ICD Codes: I10 - Essential (primary) hypertension SNOMED: 86937372 (3) PCP (phencyclidine) abuse ICD Codes: F16.10 - Hallucinogen abuse, uncomplicated SNOMED: 8450626 Assessment/Plan: continue Levemir 30 units qhs continue Novolog 10 units ac tid continue NISS ac / hs continue Metformin 500 mg tid Subjective Allergies: Coded Allergies: No Known Allergies (Unverified , 07/16/19) All Systems: reviewed and negative except above Subjective events noted glucose values improved Item Value Date Time Bedside Blood Glucose 152 mg/dl H 07/20/19 0630 Bedside Blood Glucose 136 mg/dl H 07/19/19 2122 Bedside Blood Glucose 235 mg/dl H 07/19/19 1735 Bedside Blood Glucose 197 mg/dl H 07/19/19 1216 Objective Last 24 Hour Vital Signs Date Time Temp Pulse Resp B/P (MAP) Pulse Ox O2 Delivery O2 Flow Rate FiO2 07/20/19 04:01 98.3 67 18 154/94 (114) 99 07/20/19 04:00 64 07/20/19 00:11 98.2 77 18 129/85 (100) 97 07/20/19 00:00 68 07/19/19 21:18 81 145/87 07/19/19 21:00 Room Air 07/19/19 20:07 98.2 81 18 145/87 (106) 97 07/19/19 20:00 75 07/19/19 16:00 82 07/19/19 15:48 97.7 80 18 149/95 (113) 98 07/19/19 13:54 76 140/85 07/19/19 12:00 76 07/19/19 12:00 97.2 74 20 156/100 (118) 100 07/19/19 09:01 76 132/85 07/19/19 09:00 76 132/85 07/19/19 08:30 Room Air 07/19/19 08:00 98.2 76 18 132/85 (101) 98 07/19/19 08:00 75 Intake and Output 07/19/19 07/20/19 19:00 07:00 Intake Total 360 ml Output Total 1800 ml Balance 360 ml -1800 ml Intake Oral 360 ml Output Urine Total 1800 ml # Voids 1 Laboratory Tests 07/20/19 04:40: White Blood Count 8.4, Red Blood Count 4.52, Hemoglobin 13.8, Hematocrit 41.1, Mean Corpuscular Volume 91, Mean Corpuscular Hemoglobin 30.5, Mean Corpuscular Hemoglobin Concent 33.6, Red Cell Distribution Width 11.5L, Platelet Count 305, Mean Platelet Volume 6.8, Neutrophils (%) (Auto) 47.5, Lymphocytes (%) (Auto) 41.5, Monocytes (%) (Auto) 8.4, Eosinophils (%) (Auto) 1.4, Basophils (%) (Auto ) 1.2, Sodium Level 141, Potassium Level 3.1L, Chloride Level 105, Carbon Dioxide Level 25, Anion Gap 11, Blood Urea Nitrogen 14, Creatinine 0.8, Estimat Glomerular Filtration Rate > 60, Glucose Level 170H, Calcium Level 9.9, Vitamin B12 Level 723, Folate 14.4 Height (Feet): 5 Height (Inches): 7.00 Weight (Pounds): 206 General Appearance: no apparent distress Neck: normal alignment Cardiovascular: normal rate Respiratory/Chest: lungs clear Abdomen: normal bowel sounds Objective Current Medications Medications (Trade) Dose Ordered Sig/Artem Route PRN Reason Start Time Stop Time Status Last Admin Dose Admin Acetaminophen (Tylenol) 650 mg Q4H PRN ORAL Mild Pain (Pain Scale 1-3) 07/16/19 17:15 08/15/19 17:14 Acetaminophen (Tylenol) 650 mg Q4H PRN ORAL fever 07/16/19 17:15 08/15/19 17:14 Acetaminophen (Tylenol) 650 mg Q4H PRN RECTAL Mild Pain (Pain Scale 1-3) 07/16/19 17:15 08/15/19 17:14 Acetaminophen (Tylenol) 650 mg Q4H PRN RECTAL fever 07/16/19 17:15 08/15/19 17:14 Amlodipine Besylate (Norvasc) 10 mg DAILY ORAL 07/19/19 09:00 08/18/19 08:59 07/19/19 09:00 Aspirin (ASA) 81 mg DAILY ORAL 07/17/19 10:30 08/16/19 10:29 07/19/19 09:01 Atorvastatin Calcium (Lipitor) 40 mg BEDTIME ORAL 07/17/19 21:00 08/16/19 20:59 07/19/19 21:19 Bisacodyl (Dulcolax) 10 mg DAILYPRN PRN RECTAL Constipation 07/16/19 17:15 08/15/19 17:14 Carvedilol (Coreg) 6.25 mg EVERY 12 HOURS ORAL 07/19/19 21:00 08/18/19 20:59 07/19/19 21:18 Clopidogrel Bisulfate (Plavix) 75 mg DAILY ORAL 07/18/19 09:00 08/17/19 08:59 07/19/19 09:00 Dextrose (Dextrose 50%) 25 ml Q30M PRN IV Hypoglycemia 07/17/19 13:00 08/16/19 12:59 Dextrose (Dextrose 50%) 50 ml Q30M PRN IV Hypoglycemia 07/17/19 13:00 08/16/19 12:59 Diphenhydramine HCl (Benadryl) 25 mg Q6H PRN ORAL Itching/Pruritis 07/16/19 17:15 08/15/19 17:14 Docusate Sodium (Colace) 100 mg EVERY 12 HOURS ORAL 07/16/19 21:00 08/15/19 20:59 07/19/19 21:19 Famotidine (Pepcid) 40 mg DAILY ORAL 07/17/19 09:00 08/16/19 08:59 07/19/19 09:01 Gabapentin (Neurontin) 100 mg DAILY ORAL 07/17/19 09:00 08/16/19 08:59 07/19/19 09:01 Heparin Sodium (Porcine) (Heparin 5000 units/ml) 5,000 units EVERY 8 HOURS SUBQ 07/16/19 22:00 08/15/19 21:59 07/19/19 21:20 Hydromorphone HCl (Dilaudid) 0.5 mg Q4H PRN IVP severe pain 07/16/19 17:15 07/23/19 17:14 Insulin Aspart (NovoLOG) 10 units NOVOTIAC SUBQ 07/18/19 06:30 08/16/19 16:49 07/19/19 17:35 Insulin Aspart (NovoLOG) No Dose BEFORE MEALS AND HS SUBQ 07/16/19 21:00 08/15/19 20:59 07/19/19 21:22 Insulin Detemir (Levemir) 30 units BEDTIME SUBQ 07/18/19 21:00 08/16/19 20:59 07/19/19 21:21 Lorazepam (Ativan) 1 mg Q4H PRN ORAL For Anxiety 07/16/19 17:15 07/23/19 17:14 Magnesium Hydroxide (Mom) 30 ml HSPRN PRN ORAL Constipation 07/16/19 17:15 08/15/19 17:14 Metformin HCl (Glucophage) 500 mg TIAC ORAL 07/17/19 16:30 08/16/19 16:29 07/19/19 17:30 Methocarbamol (Robaxin) 500 mg TIDPRN PRN ORAL spaspm 07/16/19 17:30 08/15/19 17:29 Metoclopramide HCl (Reglan) 10 mg Q6H PRN IVP Nausea & Vomiting 07/16/19 17:15 08/15/19 17:14 Nifedipine (Adalat) 10 mg Q8H PRN ORAL sbp >175, dbp >100 07/16/19 20:30 08/15/19 20:29 Nitroglycerin (Ntg) 0.4 mg Q5M PRN SL Prn Chest Pain 07/16/19 17:15 08/15/19 17:14 Ondansetron HCl (Zofran) 4 mg Q6H PRN IVP Nausea & Vomiting 07/16/19 17:15 08/15/19 17:14 Polyethylene Glycol (Miralax) 17 gm DAILYPRN PRN ORAL Constipation 07/16/19 17:15 08/15/19 17:14 Prochlorperazine (Compazine) 10 mg Q6H PRN IVP Nausea & Vomiting 07/16/19 17:15 08/15/19 17:14 Tramadol HCl (Ultram) 50 mg Q6H PRN ORAL mod pain 07/16/19 17:30 07/23/19 17:29 07/18/19 09:34 Valacyclovir HCl (Valtrex) 1,000 mg Q8HR ORAL 07/16/19 22:00 08/15/19 21:59 07/19/19 21:19 Zolpidem Tartrate (Ambien) 5 mg DAILYPRN PRN ORAL Insomnia 07/16/19 17:15 07/23/19 17:14 Trey Levy MD Jul 20, 2019 07:10
--- NOTE | 2019-07-20 07:26 | NUR ---
HAND-OFF: Report given to DAVID Bell
[2019-07-20] MEDS: valACYclovir HCL 500mg tab ORAL SCH ×3 (07:40→21:30)
[2019-07-20] MEDS: metFORMIN 500mg tab ORAL SCH ×3 (07:40→18:04)
[2019-07-20] MEDS: Heparin 5000 units/ml inj SUBQ SCH ×3 (07:42→21:32)
[2019-07-20] MEDS: NovoLOG Insulin Flexpen SUBQ SCH ×3 (07:43→18:12)
[2019-07-20] MEDS: Insulin NovoLOG Flexpen S/S (Mod) SUBQ SCH ×4 (07:44→21:34)
--- NOTE | 2019-07-20 07:52 | NUR ---
NURSE NOTES: pt resting in bed, food tray at bedside. Pt. AOx3, confused at times. Pt on patient monitor, no signs of cardiac or respiratory distress. Bed is locked and in lowest position. Call light is within reach. Will continue plans of care.
[2019-07-20 08:30] VITALS: BP 140/91
[2019-07-20] MEDS: Carvedilol 6.25mg Tab ORAL SCH (09:59)
[2019-07-20] MEDS: Docusate 100mg cap ORAL SCH ×2 (10:00→21:00)
[2019-07-20] MEDS: Aspirin Baby 81mg ORAL SCH (10:00)
--- NOTE | 2019-07-20 10:27 | NUR ---
NURSE NOTES: per Doct. Riky, T/O give kdur 60meq po once for potassium 3.1.
--- NOTE | 2019-07-20 11:42 | General Progress Note ---
Assessment/Plan Assessment/Plan: 59 yo F PMH of HTN present complaining of diploplia for 5 days, ataxia, and found to have hyperglycemia in the ed # Diploplia/weakness in setting of substance abuse (PCP) -Patient medically cleared for discharge to nursing facility or rehab - Neurology consult, appreciate reqs - Psyche consult appreciate reqs - f/u final read MRA head and neck: Reviewed - ED reports acute infarcts and [facility] [place] [facility] with [place]PA, pt out of window - tele - ekg and troponins: Reviewed - echo follow-up: Reviewed within normal limits - sw for substance abuse - PT OT: Recommend nursing facility or rehab - check flp; elevated, goal LDL less than 70 - statin -Blood pressure goal less than 120/80,, continue Norvasc and increase coreg from 6.25 to 12.5 #Metabolic encephalopathy secondary to PCP and chronic vascular changes -Continue management of blood pressure, diabetes -Check B12 and folate: wnl -RPR negative # New onset DM2 - check a1c: 13 - check FLP: Reviewed -Levemir titrated by endocrinology - Endo consult, appreciate reqs - accuchecks qac and q - diabetic diet - diabetic education # Shingles - lesions are crusted over, patient does not need iso - valacyclovir 1g tid x y days (07/16-07/23) - gabapentin for pain control - pain control, see orders # DESI, prerenal and resolved - monitor bmp - avoid nephrotoxic meds - UA: Reviewed - monitor I/O # Uncontrolled HTN, improved -Continue meds as per above - nifedipine prn FULL CODE time of note may not reflect time of my encounter Subjective Date patient seen: Jul 20, 2019 Allergies: Coded Allergies: No Known Allergies (Unverified , 07/16/19) Subjective Patient fatigue. glucose better this am has occasional headaches, prefers to keep room dark Objective Last 24 Hour Vital Signs Date Time Temp Pulse Resp B/P (MAP) Pulse Ox O2 Delivery O2 Flow Rate FiO2 07/20/19 10:00 72 140/91 07/20/19 09:59 72 140/91 07/20/19 09:00 Room Air 07/20/19 08:30 97.6 72 18 140/91 (107) 98 07/20/19 04:01 98.3 67 18 154/94 (114) 99 07/20/19 04:00 64 8/25/19 00:11 98.2 77 18 129/85 (100) 97 07/20/19 00:00 68 07/19/19 21:18 81 145/87 07/19/19 21:00 Room Air 07/19/19 20:07 98.2 81 18 145/87 (106) 97 07/19/19 20:00 75 07/19/19 16:00 82 07/19/19 15:48 97.7 80 18 149/95 (113) 98 07/19/19 13:54 76 140/85 07/19/19 12:00 76 07/19/19 12:00 97.2 74 20 156/100 (118) 100 Intake and Output 07/19/19 07/20/19 19:00 07:00 Intake Total 360 ml Output Total 1800 ml Balance 360 ml -1800 ml Intake Oral 360 ml Output Urine Total 1800 ml # Voids 1 Laboratory Tests 07/20/19 04:40: White Blood Count 8.4, Red Blood Count 4.52, Hemoglobin 13.8, Hematocrit 41.1, Mean Corpuscular Volume 91, Mean Corpuscular Hemoglobin 30.5, Mean Corpuscular Hemoglobin Concent 33.6, Red Cell Distribution Width 11.5L, Platelet Count 305, Mean Platelet Volume 6.8, Neutrophils (%) (Auto) 47.5, Lymphocytes (%) (Auto) 41.5, Monocytes (%) (Auto) 8.4, Eosinophils (%) (Auto) 1.4, Basophils (%) (Auto ) 1.2, Sodium Level 141, Potassium Level 3.1L, Chloride Level 105, Carbon Dioxide Level 25, Anion Gap 11, Blood Urea Nitrogen 14, Creatinine 0.8, Estimat Glomerular Filtration Rate > 60, Glucose Level 170H, Calcium Level 9.9, Vitamin B12 Level 723, Folate 14.4 Height (Feet): 5 Height (Inches): 7.00 Weight (Pounds): 206 Objective GENERAL: No acute distress, sitting comfortably, alert HEENT: NCAT, non-icteric eyes, pupils PERRLA Neck: No cervical lymphadenopathy, trachea midline CV: Regular rate and rhythm, no murmurs rubs or gallops RESP: Clear to auscultation bilaterally, no wheezes/rhonchi/crackles EXT: Normal muscle tone, +5/5 muscle strength NEURO: No changes Sonya Lan DO Jul 20, 2019 11:42
[2019-07-20] MEDS ORDERED: Carvedilol 6.25mg Tab ORAL SCH (11:45)
[2019-07-20 12:00] VITALS: BP 131/83
--- NOTE | 2019-07-20 14:14 | Neurology Progress Note ---
Interim History Interim History Interim History Ms. Shirley feels better generally. Her vision is about the same as yesterday. She has no double vision, however, when she moves her eyes up and down she feels uncomfortable. The mind is clear. Her spirits are still low. She denies any new neurological symptoms. She denies any weakness on one side of the other, numbness on one side of the other, problems with speech, problems with language, problems with memory, other neurological symptoms. Review of Systems Neuro Review of Systems Benign. Objective Physical Exam Last Vital Signs Date Time Temp Pulse Resp B/P (MAP) Pulse Ox O2 Delivery O2 Flow Rate FiO2 07/20/19 13:27 75 131/83 07/20/19 09:00 Room Air 07/20/19 08:30 97.6 18 98 Laboratory Tests Test 07/20/19 04:40 White Blood Count 8.4 K/UL (4.8-10.8) Red Blood Count 4.52 M/UL (4.20-5.40) Hemoglobin 13.8 G/DL (12.0-16.0) Hematocrit 41.1 % (37.0-47.0) Mean Corpuscular Volume 91 FL (80-99) Mean Corpuscular Hemoglobin 30.5 PG (27.0-31.0) Mean Corpuscular Hemoglobin Concent 33.6 G/DL (32.0-36.0) Red Cell Distribution Width 11.5 % (11.6-14.8) L Platelet Count 305 K/UL (150-450) Mean Platelet Volume 6.8 FL (6.5-10.1) Neutrophils (%) (Auto) 47.5 % (45.0-75.0) Lymphocytes (%) (Auto) 41.5 % (20.0-45.0) Monocytes (%) (Auto) 8.4 % (1.0-10.0) Eosinophils (%) (Auto) 1.4 % (0.0-3.0) Basophils (%) (Auto) 1.2 % (0.0-2.0) Sodium Level 141 MMOL/L (136-145) Potassium Level 3.1 MMOL/L (3.5-5.1) L Chloride Level 105 MMOL/L (98-107) Carbon Dioxide Level 25 MMOL/L (21-32) Anion Gap 11 mmol/L (5-15) Blood Urea Nitrogen 14 mg/dL (7-18) Creatinine 0.8 MG/DL (0.55-1.30) Estimat Glomerular Filtration Rate > 60 mL/min (>60) Glucose Level 170 MG/DL (74-106) H Calcium Level 9.9 MG/DL (8.5-10.1) Vitamin B12 Level 723 PG/ML (193-986) Folate 14.4 NG/ML (8.6-58.9) Neurologic Exam Objective PHYSICAL EXAMINATION: GENERAL: She is a well-developed and well-nourished obese black lady, lying in bed, in no acute distress. HEAD: Normocephalic and atraumatic. EENT: Examination benign. NECK: No neck rigidity was observed. NEUROLOGICAL EXAMINATION: MENTAL STATUS EXAMINATION: She was awake and alert. She was oriented to person, place, and time. She was able to recall 3/3 words immediately, but could only remember 2/3 words in 1 minute and 3 minutes. She was able to remember presidents, Trump and Obama, but could not remember presidents prior to that. Her mathematical skills were good. Her visuospatial function was preserved. SPEECH: She had no dysarthria. LANGUAGE: She had no aphasia. CRANIAL NERVE EXAMINATION: II: The visual duenas were intact on confrontation testing. III, IV & : The external ocular movements were full, she had no diplopia. The pupils were 3 mm in diameter, equal, round, regular, and reactive sluggishly to light. V: She had normal facial sensations, and the temporales, masseters, and pterygoids functioned normally. VII: She had normal facial expressions and no facial asymmetry. VIII: She was able to hear well bilaterally and had no nystagmus. IX: The palate moved symmetrically on phonation. X: She had no hoarseness of voice. XI: The sternocleidomastoids and trapezii functioned normally. XII: The tongue was in the midline without any fasciculations or atrophy. MOTOR SYSTEM: The tone was normal in all four extremities. Examination of muscle mass revealed no focal wasting. Examination of power revealed G 5/5 power in all muscle groups tested. SENSORY EXAMINATION: She had intact sensations to pinprick, light touch, and graphesthesia. COORDINATION: She performed well on [id number] and [id number] testing. Romberg test could not be performed because even with eyes open when she was made to stand with feet together she was quite unsteady. REFLEXES: 0 at the biceps, triceps, brachioradialis, knees, and ankles. The plantar responses were flexor bilaterally. STANCE: She had a wide-based but stable stance. GAIT: She walked with a wide-based but stable gait. Impression/Recommendations Diagnostic Impression 1. Ms. Rowena Shirley is a 59-year-old, right-handed, black lady, who does have a long history of hypertension, dyslipidemia, and PCP use. About two weeks ago, she developed the shingles over her right lower lumbar nerve roots and then one week ago she started to feel unsteady on her feet. This was associated with a sensation of being "dizzy." The problem got progressively worse and on 2018 she started to notice double vision. This problem became quite bothersome and as a result of that she presented to the [facility] emergency room. 2. She feels better generally. Her vision is about the same as yesterday. She has no double vision, however, when she moves her eyes up and down she feels uncomfortable. The mind is clear. Her spirits are still low. She denies any new neurological symptoms. 3. On neurological examination, at this time, she does have problems with recent and remote memory. The diplopia has resolved. She has absent deep tendon reflexes, a wide-based stance, and a wide-based gait. 4. Laboratory tests on my initial evaluation revealed a relatively normal CBC. The chemistry panel revealed hyponatremia with a sodium of 134, a chloride of 97 , a blood glucose of 508, and AST 13, ALT 31, and alkaline phosphatase elevated at 122. Her lipid profile revealed a total cholesterol of 230, LDL of 150, and HDL of 40. The Hemoglobin A1c was elevated to 13.3. Her TSH was normal at 1.04 with a free T4 of 0.87. The toxicology screen was positive for phencyclidine. Her urinalysis revealed 2+ leukocyte esterase, 0-2 red blood cells, and 5-10 white blood cells per high-power field. 5. The MRI scan of the brain revealed three punctate infarcts involving a brainstem in the region of the midbrain with one lesion in the center and the other two lesions on either side. She also had acute infarcts involving both thalami. In addition to these acute infarcts, she had chronic infarcts involving the deep white matter bilaterally. 6. The patient's history, neurological examination, laboratory data, and imaging studies are most consistent with acute infarcts involving the midbrain and thalami causing the visual problems and unsteadiness on her feet. 7. The most likely etiology for the patient's multiple infarcts would be small blood vessel cerebrovascular disease due to hypertension, diabetes mellitus, and dyslipidemia. In addition, the PCP abuse could also be contributing. However, other etiologies for stroke should be excluded including cardiac arrhythmia. Recommendations 1. The patient was given an explanation of the above-mentioned findings. 2. She was again made aware of the ills of PCP use. 3. The patient's blood pressure should be controlled and brought down to the physiological range that is < 120/80 mmHg at all times. 4. Her dyslipidemia should be treated aggressively with an LDL goal of <70. 5. Her diabetes mellitus should be controlled and hemoglobin A1c goal should be < 6%. 6. Plavix 75 mg for secondary stroke prevention. 7. Observe closely. Hemant Hayes M.D., M.S.P.H. Hemant Hayes MD Jul 20, 2019 14:14
[2019-07-20 16:00] VITALS: BP 136/76
--- NOTE | 2019-07-20 19:58 | NUR ---
HAND-OFF: Report given to Scot/dung pt in stable condition.
[2019-07-20 20:00] VITALS: BP 142/86
--- NOTE | 2019-07-20 20:00 | NUR ---
NURSE NOTES: Got report from Shaila HERNANDEZ. Pt in stable condition. Denies any pain. No s/s of distress or discomfort noted. Pt resting in bed comfortably. Bed in low and locked position, call light within reach, bedside table within reach. Continue to monitor.
[2019-07-20] MEDS: Carvedilol 12.5mg tab ORAL SCH (21:25)
[2019-07-20] MEDS: Atorvastatin 20mg tab ORAL SCH (21:26)
[2019-07-20] MEDS: Levemir Flexpen SUBQ SCH (21:33)
[2019-07-21] VITALS: BP 146/88
[2019-07-21 04:00] VITALS: BP 138/87
[2019-07-21] MEDS: valACYclovir HCL 500mg tab ORAL SCH ×3 (06:04→21:45)
[2019-07-21] MEDS: metFORMIN 500mg tab ORAL SCH ×3 (06:04→16:30)
[2019-07-21] MEDS: NovoLOG Insulin Flexpen SUBQ SCH ×3 (06:06→18:04)
[2019-07-21] MEDS: Insulin NovoLOG Flexpen S/S (Mod) SUBQ SCH ×4 (06:07→21:00)
[2019-07-21] MEDS: Heparin 5000 units/ml inj SUBQ SCH ×3 (06:08→21:43)
--- NOTE | 2019-07-21 07:00 | NUR ---
HAND-OFF: Report given to Shaila. Endorsed plan of care.
--- NOTE | 2019-07-21 07:18 | General Progress Note ---
Assessment/Plan Problem List: (1) Uncontrolled diabetes mellitus ICD Codes: E11.65 - Type 2 diabetes mellitus with hyperglycemia SNOMED: 14677408, [id number] (2) HTN (hypertension) ICD Codes: I10 - Essential (primary) hypertension SNOMED: 14469677 (3) PCP (phencyclidine) abuse ICD Codes: F16.10 - Hallucinogen abuse, uncomplicated SNOMED: 6051906 Assessment/Plan: continue Levemir 30 units qhs continue Novolog 10 units ac tid continue NISS ac / hs continue Metformin 500 mg tid Subjective Allergies: Coded Allergies: No Known Allergies (Unverified , 07/16/19) All Systems: reviewed and negative except above Subjective events noted glucose values controlled Item Value Date Time Bedside Blood Glucose 143 mg/dl H 07/21/19 0630 Bedside Blood Glucose 151 mg/dl H 07/20/19 2134 Bedside Blood Glucose 149 mg/dl H 07/20/19 1813 Bedside Blood Glucose 154 mg/dl H 07/20/19 1334 Bedside Blood Glucose 152 mg/dl H 07/20/19 0744 Bedside Blood Glucose 152 mg/dl H 07/20/19 0630 Objective Last 24 Hour Vital Signs Date Time Temp Pulse Resp B/P (MAP) Pulse Ox O2 Delivery O2 Flow Rate FiO2 07/21/19 04:00 68 07/21/19 04:00 97.9 66 19 138/87 (104) 97 07/21/19 00:00 97.9 75 19 146/88 (107) 98 07/21/19 00:00 73 07/20/19 21:25 73 142/86 07/20/19 21:00 Room Air 07/20/19 20:00 98.2 73 19 142/86 (104) 97 07/20/19 20:00 84 07/20/19 16:00 71 07/20/19 16:00 96.4 74 18 136/76 (96) 96 07/20/19 13:27 75 131/83 07/20/19 12:00 98.1 75 18 131/83 (99) 98 07/20/19 12:00 72 07/20/19 10:00 72 140/91 07/20/19 09:59 72 140/91 07/20/19 09:00 Room Air 07/20/19 08:30 97.6 72 18 140/91 (107) 98 07/20/19 08:00 77 Intake and Output 07/20/19 07/21/19 19:00 07:00 Intake Total 800 ml Balance 800 ml Intake Oral 800 ml # Voids 3 2 # Bowel Movements 3 3 Height (Feet): 5 Height (Inches): 7.00 Weight (Pounds): 206 General Appearance: no apparent distress Neck: normal alignment Cardiovascular: normal rate Respiratory/Chest: lungs clear Abdomen: normal bowel sounds Objective Current Medications Medications (Trade) Dose Ordered Sig/Artem Route PRN Reason Start Time Stop Time Status Last Admin Dose Admin Acetaminophen (Tylenol) 650 mg Q4H PRN ORAL Mild Pain (Pain Scale 1-3) 07/16/19 17:15 08/15/19 17:14 Acetaminophen (Tylenol) 650 mg Q4H PRN ORAL fever 07/16/19 17:15 08/15/19 17:14 Acetaminophen (Tylenol) 650 mg Q4H PRN RECTAL Mild Pain (Pain Scale 1-3) 07/16/19 17:15 08/15/19 17:14 Acetaminophen (Tylenol) 650 mg Q4H PRN RECTAL fever 07/16/19 17:15 08/15/19 17:14 Amlodipine Besylate (Norvasc) 10 mg DAILY ORAL 07/19/19 09:00 08/18/19 08:59 07/20/19 10:00 Aspirin (ASA) 81 mg DAILY ORAL 07/17/19 10:30 08/16/19 10:29 07/20/19 10:00 Atorvastatin Calcium (Lipitor) 40 mg BEDTIME ORAL 07/17/19 21:00 08/16/19 20:59 07/20/19 21:26 Bisacodyl (Dulcolax) 10 mg DAILYPRN PRN RECTAL Constipation 07/16/19 17:15 08/15/19 17:14 Carvedilol (Coreg) 12.5 mg EVERY 12 HOURS ORAL 07/20/19 21:00 08/19/19 20:59 07/20/19 21:25 Clopidogrel Bisulfate (Plavix) 75 mg DAILY ORAL 07/18/19 09:00 08/17/19 08:59 07/20/19 09:59 Dextrose (Dextrose 50%) 25 ml Q30M PRN IV Hypoglycemia 07/17/19 13:00 08/16/19 12:59 Dextrose (Dextrose 50%) 50 ml Q30M PRN IV Hypoglycemia 07/17/19 13:00 08/16/19 12:59 Diphenhydramine HCl (Benadryl) 25 mg Q6H PRN ORAL Itching/Pruritis 07/16/19 17:15 08/15/19 17:14 Docusate Sodium (Colace) 100 mg EVERY 12 HOURS ORAL 07/16/19 21:00 08/15/19 20:59 07/20/19 10:00 Famotidine (Pepcid) 40 mg DAILY ORAL 07/17/19 09:00 08/16/19 08:59 07/20/19 10:00 Gabapentin (Neurontin) 100 mg DAILY ORAL 07/17/19 09:00 08/16/19 08:59 07/20/19 09:59 Heparin Sodium (Porcine) (Heparin 5000 units/ml) 5,000 units EVERY 8 HOURS SUBQ 07/16/19 22:00 08/15/19 21:59 07/21/19 06:08 Hydromorphone HCl (Dilaudid) 0.5 mg Q4H PRN IVP severe pain 07/16/19 17:15 07/23/19 17:14 Insulin Aspart (NovoLOG) 10 units NOVOTIAC SUBQ 07/18/19 06:30 08/16/19 16:49 07/21/19 06:06 Insulin Aspart (NovoLOG) No Dose BEFORE MEALS AND HS SUBQ 07/16/19 21:00 08/15/19 20:59 07/21/19 06:07 Insulin Detemir (Levemir) 30 units BEDTIME SUBQ 07/18/19 21:00 08/16/19 20:59 07/20/19 21:33 Lorazepam (Ativan) 1 mg Q4H PRN ORAL For Anxiety 07/16/19 17:15 07/23/19 17:14 Magnesium Hydroxide (Mom) 30 ml HSPRN PRN ORAL Constipation 07/16/19 17:15 08/15/19 17:14 Metformin HCl (Glucophage) 500 mg TIAC ORAL 07/17/19 16:30 08/16/19 16:29 07/21/19 06:04 Methocarbamol (Robaxin) 500 mg TIDPRN PRN ORAL spaspm 07/16/19 17:30 08/15/19 17:29 Metoclopramide HCl (Reglan) 10 mg Q6H PRN IVP Nausea & Vomiting 07/16/19 17:15 08/15/19 17:14 Nifedipine (Adalat) 10 mg Q8H PRN ORAL sbp >175, dbp >100 07/16/19 20:30 08/15/19 20:29 Nitroglycerin (Ntg) 0.4 mg Q5M PRN SL Prn Chest Pain 07/16/19 17:15 08/15/19 17:14 Ondansetron HCl (Zofran) 4 mg Q6H PRN IVP Nausea & Vomiting 07/16/19 17:15 08/15/19 17:14 Polyethylene Glycol (Miralax) 17 gm DAILYPRN PRN ORAL Constipation 07/16/19 17:15 08/15/19 17:14 Prochlorperazine (Compazine) 10 mg Q6H PRN IVP Nausea & Vomiting 07/16/19 17:15 08/15/19 17:14 Tramadol HCl (Ultram) 50 mg Q6H PRN ORAL mod pain 07/16/19 17:30 07/23/19 17:29 07/18/19 09:34 Valacyclovir HCl (Valtrex) 1,000 mg Q8HR ORAL 07/16/19 22:00 08/15/19 21:59 07/21/19 06:04 Zolpidem Tartrate (Ambien) 5 mg DAILYPRN PRN ORAL Insomnia 07/16/19 17:15 07/23/19 17:14 Trey Levy MD Jul 21, 2019 07:18
--- NOTE | 2019-07-21 07:42 | NUR ---
NURSE NOTES: Pt in bed sleeping. Pt on monitoring analyst no signs of cardiac or respiratory distress. Bed in lowest position and locked. Call light is within reach. Will continue to follow plan of care. Pt is awaiting snf/rehab placement.
[2019-07-21 08:00] VITALS: BP 121/84
[2019-07-21] MEDS: Aspirin Baby 81mg ORAL SCH (09:10)
[2019-07-21] MEDS: Carvedilol 12.5mg tab ORAL SCH ×2 (09:11→21:45)
[2019-07-21] MEDS: Docusate 100mg cap ORAL SCH ×2 (09:11→21:00)
--- NOTE | 2019-07-21 09:39 | NUR ---
DISCHARGE PLANNING SPOKE WITH DERIK AT [facility] ~ SHE [place] GET BACK [place] SPOKE WITH SWETA AT [facility] ~ SHE REQUESTED PACKET BE REFAXED ~ REFAXED CALLED [facility] AND SPOKE WITH [employer] COVER INSPECTOR, АННА ~ THEY ARE ON BED LOCK ~ NO AVAILABLE BEDS AT THIS TIME Addendum: 07/21/19 at 1239 by KARMEN ANDERSON LVN LVN SPOKE WITH DERIK AT [facility] ~ UNABLE TO ACCEPT SPOKE WITH АННА AT [facility] ~ NO BEDS CALLED SWETA AT [facility] ~ WAITING FOR CALL BACK
[2019-07-21 12:00] VITALS: BP 133/92
--- NOTE | 2019-07-21 12:34 | NUR ---
*-* INSURANCE *-* CLINICALS HAVE BEEN FAXED TO: NATALIE ENNIS:DELONTE F: [phone] Addendum: 07/21/19 at 1620 by KARMEN ANDERSON LVN LVN T: [phone]
[2019-07-21 16:00] VITALS: BP 127/84
--- NOTE | 2019-07-21 17:21 | General Progress Note ---
Assessment/Plan Status: stable Assessment/Plan: Assessment/Plan Assessment/Plan: 59 yo F PMH of HTN present complaining of diploplia for 5 days, ataxia, and found to have hyperglycemia in the ed # Diploplia/weakness in setting of substance abuse (PCP) -Patient medically cleared for discharge to nursing facility or rehab - Neurology consult, appreciate reqs - Psyche consult appreciate reqs - f/u final read MRA head and neck: Reviewed - ED reports acute infarcts and [facility] with no TPA, pt out of window - tele - ekg and troponins: Reviewed - echo follow-up: Reviewed within normal limits - sw for substance abuse - PT OT: Recommend nursing facility or rehab - check flp; elevated, goal LDL less than 70 - statin -Blood pressure goal less than 120/80,, continue Norvasc and increased coreg from 6.25 to 12.5 #Metabolic encephalopathy secondary to PCP and chronic vascular changes -Continue management of blood pressure, diabetes -Check B12 and folate: wnl -RPR negative # New onset DM2 - check a1c: 13 - check FLP: Reviewed -Levemir titrated by endocrinology, 30 units QHS, Novolog 10 units AC TID, SHELLY - Endo consult, appreciate reqs - accuchecks qac and qhs - diabetic diet - diabetic education # Shingles - lesions are crusted over, patient does not need iso - valacyclovir 1g tid x y days (07/16-07/23) - gabapentin for pain control - pain control, see orders # DESI, prerenal and resolved - monitor bmp - avoid nephrotoxic meds - UA: Reviewed - monitor I/O # Uncontrolled HTN, improved -Continue meds as per above - nifedipine prn # Disposition SNF pending approval - Discussed with CM today. Many refusals from different snf noted. FULL CODE time of note may not reflect time of my encounter Subjective ROS Limited/Unobtainable: Yes Allergies: Coded Allergies: No Known Allergies (Unverified , 07/16/19) All Systems: reviewed and negative except above Objective Last 24 Hour Vital Signs Date Time Temp Pulse Resp B/P (MAP) Pulse Ox O2 Delivery O2 Flow Rate FiO2 07/21/19 16:00 98.0 71 20 127/84 (98) 94 07/21/19 12:00 97.3 74 21 133/92 (106) 96 07/21/19 11:58 75 07/21/19 09:12 79 121/84 07/21/19 09:11 79 121/84 07/21/19 09:00 Room Air 07/21/19 08:00 98.2 79 21 121/84 (96) 95 07/21/19 07:28 88 07/21/19 04:00 68 07/21/19 04:00 97.9 66 19 138/87 (104) 97 07/21/19 00:00 97.9 75 19 146/88 (107) 98 07/21/19 00:00 73 07/20/19 21:25 73 142/86 07/20/19 21:00 Room Air 07/20/19 20:00 98.2 73 19 142/86 (104) 97 07/20/19 20:00 84 Intake and Output 07/20/19 07/21/19 19:00 07:00 Intake Total 800 ml Balance 800 ml Intake Oral 800 ml # Voids 3 2 # Bowel Movements 3 3 Height (Feet): 5 Height (Inches): 7.00 Weight (Pounds): 206 EENT: PERRL/EOMI Cardiovascular: normal rate Edema: trace edema Neurologic: field auditor II-XII grossly normal Jenni Barrientos MD Jul 21, 2019 17:21
--- NOTE | 2019-07-21 18:28 | Neurology Progress Note ---
Interim History Interim History Interim History Ms. Shirley feels the same as yesterday. Her vision is about the same too. She has no double vision, however, when she moves her eyes up and down she feels uncomfortable. The mind is clear. Her spirits are low. She denies any new neurological symptoms. She denies any weakness on one side of the other, numbness on one side of the other, problems with speech, problems with language, problems with memory, other neurological symptoms. Review of Systems Neuro Review of Systems Benign. Objective Physical Exam Last Vital Signs Date Time Temp Pulse Resp B/P (MAP) Pulse Ox O2 Delivery O2 Flow Rate FiO2 07/21/19 16:00 98.0 71 20 127/84 (98) 94 07/21/19 09:00 Room Air Neurologic Exam Objective PHYSICAL EXAMINATION: GENERAL: She is a well-developed and well-nourished obese black lady, sitting up in a chair, in no acute distress. HEAD: Normocephalic and atraumatic. EENT: Examination benign. NECK: No neck rigidity was observed. NEUROLOGICAL EXAMINATION: MENTAL STATUS EXAMINATION: She was awake and alert. She was oriented to person, place, and time. She was able to recall 3/3 words immediately, but could only remember 2/3 words in 1 minute and 3 minutes. She was able to remember presidents, Trump and Obama, but could not remember presidents prior to that. She refused to cooperate for further mental status tests. SPEECH: She had no dysarthria. LANGUAGE: She had no aphasia. CRANIAL NERVE EXAMINATION: II: The visual duenas were intact on confrontation testing. III, IV & : The external ocular movements were full, she had no diplopia. The pupils were 3 mm in diameter, equal, round, regular, and reactive sluggishly to light. V: She had normal facial sensations, and the temporales, masseters, and pterygoids functioned normally. VII: She had normal facial expressions and no facial asymmetry. VIII: She was able to hear well bilaterally and had no nystagmus. IX: The palate moved symmetrically on phonation. X: She had no hoarseness of voice. XI: The sternocleidomastoids and trapezii functioned normally. XII: The tongue was in the midline without any fasciculations or atrophy. MOTOR SYSTEM: The tone was normal in all four extremities. Examination of muscle mass revealed no focal wasting. Examination of power revealed G 5/5 power in all muscle groups tested. SENSORY EXAMINATION: She had intact sensations to pinprick, light touch, and graphesthesia. COORDINATION: She performed well on [id number] and [id number] testing. REFLEXES: 0 at the biceps, triceps, brachioradialis, knees, and ankles. The plantar responses were flexor bilaterally. STANCE: She had a wide-based but stable stance. GAIT: She refused to walk. Impression/Recommendations Diagnostic Impression 1. Ms. Rowena Shirley is a 59-year-old, right-handed, black lady, who does have a long history of hypertension, dyslipidemia, and PCP use. About two weeks ago, she developed the shingles over her right lower lumbar nerve roots and then one week ago she started to feel unsteady on her feet. This was associated with a sensation of being "dizzy." The problem got progressively worse and on 2018 she started to notice double vision. This problem became quite bothersome and as a result of that she presented to the [facility] emergency room. 2. She feels feels the same as yesterday. Her vision is about the same too. She has no double vision, however, when she moves her eyes up and down she feels uncomfortable. The mind is clear. Her spirits are low. She denies any new neurological symptoms. 3. On neurological examination, at this time, she does have problems with recent and remote memory. The diplopia has resolved. She has absent deep tendon reflexes, a wide-based stance, and refuses to walk. 4. Laboratory tests on my initial evaluation revealed a relatively normal CBC. The chemistry panel revealed hyponatremia with a sodium of 134, a chloride of 97 , a blood glucose of 508, and AST 13, ALT 31, and alkaline phosphatase elevated at 122. Her lipid profile revealed a total cholesterol of 230, LDL of 150, and HDL of 40. The Hemoglobin A1c was elevated to 13.3. Her TSH was normal at 1.04 with a free T4 of 0.87. The toxicology screen was positive for phencyclidine. Her urinalysis revealed 2+ leukocyte esterase, 0-2 red blood cells, and 5-10 white blood cells per high-power field. 5. The MRI scan of the brain revealed three punctate infarcts involving a brainstem in the region of the midbrain with one lesion in the center and the other two lesions on either side. She also had acute infarcts involving both thalami. In addition to these acute infarcts, she had chronic infarcts involving the deep white matter bilaterally. 6. The patient's history, neurological examination, laboratory data, and imaging studies are most consistent with acute infarcts involving the midbrain and thalami causing the visual problems and unsteadiness on her feet. 7. The most likely etiology for the patient's multiple infarcts would be small blood vessel cerebrovascular disease due to hypertension, diabetes mellitus, and dyslipidemia. In addition, the PCP abuse could also be contributing. However, other etiologies for stroke should be excluded including cardiac arrhythmia. Recommendations 1. The patient was given an explanation of the above-mentioned findings. 2. She was again made aware of the ills of PCP use. 3. The patient's blood pressure should be controlled and brought down to the physiological range that is < 120/80 mmHg at all times. 4. Her dyslipidemia should be treated aggressively with an LDL goal of <70. 5. Her diabetes mellitus should be controlled and hemoglobin A1c goal should be < 6%. 6. Plavix 75 mg for secondary stroke prevention. 7. Observe closely. Hemant Hayes M.D., M.S.P.H. Hemant Hayes MD Jul 21, 2019 18:28
[2019-07-21 20:00] VITALS: BP 137/84
--- NOTE | 2019-07-21 20:31 | NUR ---
HAND-OFF: Report given to Suhail/rn, pt in stable condition.
[2019-07-21] MEDS: Levemir Flexpen SUBQ SCH (21:43)
[2019-07-21] MEDS: Atorvastatin 20mg tab ORAL SCH (21:45)
[2019-07-22] VITALS: BP 138/87
[2019-07-22 04:00] VITALS: BP 137/91
[2019-07-22] MEDS: valACYclovir HCL 500mg tab ORAL SCH ×3 (05:58→21:23)
[2019-07-22] MEDS: Heparin 5000 units/ml inj SUBQ SCH ×3 (05:59→21:26)
[2019-07-22] MEDS: metFORMIN 500mg tab ORAL SCH ×3 (06:00→16:44)
[2019-07-22] MEDS: traMADol 50mg tab ORAL PRN (06:21)
[2019-07-22] MEDS: Insulin NovoLOG Flexpen S/S (Mod) SUBQ SCH ×4 (06:26→21:27)
[2019-07-22] MEDS: NovoLOG Insulin Flexpen SUBQ SCH ×3 (06:27→16:45)
--- NOTE | 2019-07-22 06:41 | General Progress Note ---
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, uncomplicated SNOMED: 0344858 Assessment/Plan: continue Levemir 30 units qhs continue Novolog 10 units ac tid continue NISS ac / hs continue Metformin 500 mg tid Subjective Allergies: Coded Allergies: No Known Allergies (Unverified , 07/16/19) All Systems: reviewed and negative except above Subjective events noted glucose values controlled Item Value Date Time Bedside Blood Glucose 124 mg/dl H 07/22/19 0630 Bedside Blood Glucose 109 mg/dl 07/21/19 2143 Bedside Blood Glucose 136 mg/dl H 07/21/19 1805 Bedside Blood Glucose 155 mg/dl H 07/21/19 1358 Bedside Blood Glucose 143 mg/dl H 07/21/19 0630 Objective Last 24 Hour Vital Signs Date Time Temp Pulse Resp B/P (MAP) Pulse Ox O2 Delivery O2 Flow Rate FiO2 07/22/19 04:00 97.7 66 18 137/91 (106) 97 07/22/19 04:00 65 07/22/19 00:00 74 07/22/19 00:00 98.0 77 18 138/87 (104) 98 07/21/19 21:45 71 137/84 07/21/19 21:00 Room Air 07/21/19 20:00 97.9 71 18 137/84 (101) 97 07/21/19 20:00 74 07/21/19 16:00 70 07/21/19 16:00 98.0 71 20 127/84 (98) 94 07/21/19 12:00 97.3 74 21 133/92 (106) 96 07/21/19 11:58 75 07/21/19 09:12 79 121/84 07/21/19 09:11 79 121/84 07/21/19 09:00 Room Air 07/21/19 08:00 98.2 79 21 121/84 (96) 95 07/21/19 07:28 88 Intake and Output 07/21/19 07/22/19 19:00 07:00 Intake Total 800 ml Output Total 1800 ml Balance -1000 ml Intake Oral 800 ml Output Urine Total 1800 ml # Voids 2 2 # Bowel Movements 2 2 Height (Feet): 5 Height (Inches): 7.00 Weight (Pounds): 206 General Appearance: no apparent distress Neck: normal alignment Cardiovascular: normal rate Respiratory/Chest: decreased breath sounds Abdomen: normal bowel sounds Objective Current Medications Medications (Trade) Dose Ordered Sig/Artem Route PRN Reason Start Time Stop Time Status Last Admin Dose Admin Acetaminophen (Tylenol) 650 mg Q4H PRN ORAL Mild Pain (Pain Scale 1-3) 07/16/19 17:15 08/15/19 17:14 Acetaminophen (Tylenol) 650 mg Q4H PRN ORAL fever 07/16/19 17:15 08/15/19 17:14 Acetaminophen (Tylenol) 650 mg Q4H PRN RECTAL Mild Pain (Pain Scale 1-3) 07/16/19 17:15 08/15/19 17:14 Acetaminophen (Tylenol) 650 mg Q4H PRN RECTAL fever 07/16/19 17:15 08/15/19 17:14 Amlodipine Besylate (Norvasc) 10 mg DAILY ORAL 07/19/19 09:00 08/18/19 08:59 07/21/19 09:12 Aspirin (ASA) 81 mg DAILY ORAL 07/17/19 10:30 08/16/19 10:29 07/21/19 09:10 Atorvastatin Calcium (Lipitor) 40 mg BEDTIME ORAL 07/17/19 21:00 08/16/19 20:59 07/21/19 21:45 Bisacodyl (Dulcolax) 10 mg DAILYPRN PRN RECTAL Constipation 07/16/19 17:15 08/15/19 17:14 Carvedilol (Coreg) 12.5 mg EVERY 12 HOURS ORAL 07/20/19 21:00 08/19/19 20:59 07/21/19 21:45 Clopidogrel Bisulfate (Plavix) 75 mg DAILY ORAL 07/18/19 09:00 08/17/19 08:59 07/21/19 09:11 Dextrose (Dextrose 50%) 25 ml Q30M PRN IV Hypoglycemia 07/17/19 13:00 08/16/19 12:59 Dextrose (Dextrose 50%) 50 ml Q30M PRN IV Hypoglycemia 07/17/19 13:00 08/16/19 12:59 Diphenhydramine HCl (Benadryl) 25 mg Q6H PRN ORAL Itching/Pruritis 07/16/19 17:15 08/15/19 17:14 Docusate Sodium (Colace) 100 mg EVERY 12 HOURS ORAL 07/16/19 21:00 08/15/19 20:59 07/21/19 09:11 Famotidine (Pepcid) 40 mg DAILY ORAL 07/17/19 09:00 08/16/19 08:59 07/21/19 09:11 Gabapentin (Neurontin) 100 mg DAILY ORAL 07/17/19 09:00 08/16/19 08:59 07/21/19 09:11 Heparin Sodium (Porcine) (Heparin 5000 units/ml) 5,000 units EVERY 8 HOURS SUBQ 07/16/19 22:00 08/15/19 21:59 07/22/19 05:59 Hydromorphone HCl (Dilaudid) 0.5 mg Q4H PRN IVP severe pain 07/16/19 17:15 07/23/19 17:14 Insulin Aspart (NovoLOG) 10 units NOVOTIAC SUBQ 07/18/19 06:30 08/16/19 16:49 07/22/19 06:27 Insulin Aspart (NovoLOG) No Dose BEFORE MEALS AND HS SUBQ 07/16/19 21:00 08/15/19 20:59 07/22/19 06:26 Insulin Detemir (Levemir) 30 units BEDTIME SUBQ 07/18/19 21:00 08/16/19 20:59 07/21/19 21:43 Lorazepam (Ativan) 1 mg Q4H PRN ORAL For Anxiety 07/16/19 17:15 07/23/19 17:14 Magnesium Hydroxide (Mom) 30 ml HSPRN PRN ORAL Constipation 07/16/19 17:15 08/15/19 17:14 Metformin HCl (Glucophage) 500 mg TIAC ORAL 07/17/19 16:30 08/16/19 16:29 07/22/19 06:00 Methocarbamol (Robaxin) 500 mg TIDPRN PRN ORAL spaspm 07/16/19 17:30 08/15/19 17:29 Metoclopramide HCl (Reglan) 10 mg Q6H PRN IVP Nausea & Vomiting 07/16/19 17:15 08/15/19 17:14 Nifedipine (Adalat) 10 mg Q8H PRN ORAL sbp >175, dbp >100 07/16/19 20:30 08/15/19 20:29 Nitroglycerin (Ntg) 0.4 mg Q5M PRN SL Prn Chest Pain 07/16/19 17:15 08/15/19 17:14 Ondansetron HCl (Zofran) 4 mg Q6H PRN IVP Nausea & Vomiting 07/16/19 17:15 08/15/19 17:14 Polyethylene Glycol (Miralax) 17 gm DAILYPRN PRN ORAL Constipation 07/16/19 17:15 08/15/19 17:14 Prochlorperazine (Compazine) 10 mg Q6H PRN IVP Nausea & Vomiting 07/16/19 17:15 08/15/19 17:14 Tramadol HCl (Ultram) 50 mg Q6H PRN ORAL mod pain 07/16/19 17:30 07/23/19 17:29 07/22/19 06:21 Valacyclovir HCl (Valtrex) 1,000 mg Q8HR ORAL 07/16/19 22:00 07/23/19 23:59 07/22/19 05:58 Zolpidem Tartrate (Ambien) 5 mg DAILYPRN PRN ORAL Insomnia 07/16/19 17:15 07/23/19 17:14 Trey Levy MD Jul 22, 2019 06:40
--- NOTE | 2019-07-22 07:00 | NUR ---
HAND-OFF: Report given to Conor HERNANDEZ. Endorsed plan of care.
--- NOTE | 2019-07-22 07:15 | NUR ---
NURSE NOTES: Received report from Fili HERNANDEZ, resting in the bed comfortably. Denies any pain at this time, no acute distress or shortness of breath noted. Bed is in the lowest position, call light in reach, fall and aspiration precaution reinforced. IV site on right wrist 20G intact and patent. Bed is on lowest position, bedside rails up x3. Call light is within reach. Will continue with the plan of care.
[2019-07-22 08:00] VITALS: BP 153/94
--- NOTE | 2019-07-22 08:48 | NUR ---
NURSE NOTES: Patient vomits, feels nauseated and HR went down to 27, now 32. notified Dr. Lan. Awaiting call back
--- NOTE | 2019-07-22 08:53 | NUR ---
NURSE NOTES: Notified Dr Barrientos of HR OF 27, now 32. Patient vomited, and feels nauseated. Dr. Barrientos will see patient soon.
[2019-07-22] MEDS: Docusate 100mg cap ORAL SCH ×2 (09:00→21:24)
[2019-07-22] MEDS: Aspirin Baby 81mg ORAL SCH (09:01)
[2019-07-22] MEDS: Carvedilol 12.5mg tab ORAL SCH ×2 (09:01→21:24)
--- NOTE | 2019-07-22 11:41 | General Progress Note ---
Assessment/Plan Status: stable Assessment/Plan: Assessment/Plan Assessment/Plan: 59 yo F PMH of HTN present complaining of diploplia for 5 days, ataxia, and found to have hyperglycemia in the ed # Diploplia/weakness in setting of substance abuse (PCP) -Patient medically cleared for discharge to nursing facility or rehab - Neurology consult, appreciate reqs - Psyche consult appreciate reqs - f/u final read MRA head and neck: Reviewed - ED reports acute infarcts and [facility] with no TPA, pt out of window - tele - ekg and troponins: Reviewed - echo follow-up: Reviewed within normal limits - sw for substance abuse - PT OT: Recommend nursing facility or rehab PENDING APPROVAL - check flp; elevated, goal LDL less than 70 - statin -Blood pressure goal less than 120/80,, continue Norvasc and increased coreg from 6.25 to 12.5 #Metabolic encephalopathy secondary to PCP and chronic vascular changes -Continue management of blood pressure, diabetes -Check B12 and folate: wnl -RPR negative # New onset DM2 - check a1c: 13 - check FLP: Reviewed -Levemir titrated by endocrinology, 30 units QHS, Novolog 10 units AC TID, SHELLY - Endo consult, appreciate reqs - accuchecks qac and qhs - diabetic diet - diabetic education - Good response to therapy # Shingles - lesions are crusted over, patient does not need iso - valacyclovir 1g tid x y days (07/16-07/23) - gabapentin for pain control - pain control, see orders # DESI, prerenal and resolved - monitor bmp - avoid nephrotoxic meds - UA: Reviewed - monitor I/O # Uncontrolled HTN, improved -Continue meds as per above - nifedipine prn # Hypokalemia - Replete today - Am labs and Magnesium level # Emesis x 1 - Tolerating diet afterwards with toast - Emesis was after eggs today. - Need to monitor evolution # Disposition SNF pending approval Many refusals from different snf noted. FULL CODE time of note may not reflect time of my encounter Subjective ROS Limited/Unobtainable: Yes Gastrointestinal/Abdominal: Reports: abdominal pain, vomiting Allergies: Coded Allergies: No Known Allergies (Unverified , 07/16/19) All Systems: reviewed and negative except above Objective Last 24 Hour Vital Signs Date Time Temp Pulse Resp B/P (MAP) Pulse Ox O2 Delivery O2 Flow Rate FiO2 07/22/19 09:01 66 153/94 07/22/19 09:01 66 153/94 07/22/19 09:00 Room Air 07/22/19 08:00 97.4 66 18 153/94 (113) 98 07/22/19 08:00 76 07/22/19 06:51 97.7 07/22/19 04:00 97.7 66 18 137/91 (106) 97 07/22/19 04:00 65 07/22/19 00:00 74 07/22/19 00:00 98.0 77 18 138/87 (104) 98 07/21/19 21:45 71 137/84 07/21/19 21:00 Room Air 07/21/19 20:00 97.9 71 18 137/84 (101) 97 07/21/19 20:00 74 07/21/19 16:00 70 07/21/19 16:00 98.0 71 20 127/84 (98) 94 07/21/19 12:00 97.3 74 21 133/92 (106) 96 07/21/19 11:58 75 Intake and Output 07/21/19 07/22/19 18:59 06:59 Intake Total 800 ml Output Total 1800 ml Balance -1000 ml Intake Oral 800 ml Output Urine Total 1800 ml # Voids 2 2 # Bowel Movements 2 2 Height (Feet): 5 Height (Inches): 7.00 Weight (Pounds): 206 General Appearance: WD/WN EENT: PERRL/EOMI Cardiovascular: normal peripheral pulses, normal rate Respiratory/Chest: lungs clear Neurologic: aromatherapist II-XII grossly normal Jenni Barrientos MD Jul 22, 2019 11:41
[2019-07-22 12:00] VITALS: BP 124/81
[2019-07-22] MEDS ORDERED: Sodium Chloride for KCL Premix x 2hrs IV SCH (12:00)
--- NOTE | 2019-07-22 13:18 | NUR ---
*-* INSURANCE *-* CLINICALS HAVE BEEN FAXED TO: NATALIE ENNIS:DELONTE F: [phone] T: [phone]
--- NOTE | 2019-07-22 14:22 | NUR ---
DISCHARGE PLANNED PATIENT IS DISCHARGING TO [facility] ROOM 3B SKILLED T:[phone] FOR NURSE TO NURSE REPORT [facility] HAS BEEN PLACED ON WILL CALL
[2019-07-22 16:00] VITALS: BP 107/65
--- NOTE | 2019-07-22 16:40 | Neurology Progress Note ---
Interim History Interim History Interim History Ms. Shirley feels unwell. She was just given potassium IV and since then she feels her vision is worse. She has mild double vision, when she moves her eyes up and down she feels very uncomfortable. The mind is clear. Her spirits are low. She denies any new neurological symptoms. She denies any weakness on one side of the other, numbness on one side of the other, problems with speech, problems with language, problems with memory, other neurological symptoms. Review of Systems Neuro Review of Systems Benign. Objective Physical Exam Last Vital Signs Date Time Temp Pulse Resp B/P (MAP) Pulse Ox O2 Delivery O2 Flow Rate FiO2 07/22/19 12:00 97.1 72 18 124/81 (95) 99 07/22/19 09:00 Room Air Neurologic Exam Objective PHYSICAL EXAMINATION: GENERAL: She is a well-developed and well-nourished obese black lady, sitting up in a chair, in no acute distress. HEAD: Normocephalic and atraumatic. EENT: Examination benign. NECK: No neck rigidity was observed. NEUROLOGICAL EXAMINATION: MENTAL STATUS EXAMINATION: She was awake and alert. She was oriented to person, place, and time. She was able to recall 3/3 words immediately, but could only remember 2/3 words in 1 minute and 3 minutes. She was able to remember presidents, Trump and Obama, but could not remember presidents prior to that. She refused to cooperate for further mental status tests. SPEECH: She had no dysarthria. LANGUAGE: She had no aphasia. CRANIAL NERVE EXAMINATION: II: The visual duenas were intact on confrontation testing. She complained of diplopia. III, IV & : The external ocular movements were full. However the gaze was dysconjugate at times. The pupils were 3 mm in diameter, equal, round, regular, and reactive sluggishly to light. V: She had normal facial sensations, and the temporales, masseters, and pterygoids functioned normally. VII: She had normal facial expressions and no facial asymmetry. VIII: She was able to hear well bilaterally and had no nystagmus. IX: The palate moved symmetrically on phonation. X: She had no hoarseness of voice. XI: The sternocleidomastoids and trapezii functioned normally. XII: The tongue was in the midline without any fasciculations or atrophy. MOTOR SYSTEM: The tone was normal in all four extremities. Examination of muscle mass revealed no focal wasting. Examination of power revealed G 5/5 power in all muscle groups tested. SENSORY EXAMINATION: She had intact sensations to pinprick, light touch, and graphesthesia. COORDINATION: She performed well on [id number]-tl-ucbc and [id number]-xu-[id number] testing. REFLEXES: 0 at the biceps, triceps, brachioradialis, knees, and ankles. The plantar responses were flexor bilaterally. STANCE: She had a wide-based but stable stance. GAIT: She refused to walk. Impression/Recommendations Diagnostic Impression 1. Ms. Rowena Shirley is a 59-year-old, right-handed, black lady, who does have a long history of hypertension, dyslipidemia, and PCP use. About two weeks ago, she developed the shingles over her right lower lumbar nerve roots and then one week ago she started to feel unsteady on her feet. This was associated with a sensation of being "dizzy." The problem got progressively worse and on 2018 she started to notice double vision. This problem became quite bothersome and as a result of that she presented to the [facility] emergency room. 2. She feels unwell. She was just given potassium IV and since then she feels her vision is worse. She has mild double vision, when she moves her eyes up and down she feels very uncomfortable. The mind is clear. Her spirits are low. She denies any new neurological symptoms. 3. On neurological examination, at this time, she does have problems with recent and remote memory. Her eyes are dysconjugate today and she again has diplopia. She has absent deep tendon reflexes, a wide-based stance, and refuses to walk. 4. Laboratory tests on my initial evaluation revealed a relatively normal CBC. The chemistry panel revealed hyponatremia with a sodium of 134, a chloride of 97 , a blood glucose of 508, and AST 13, ALT 31, and alkaline phosphatase elevated at 122. Her lipid profile revealed a total cholesterol of 230, LDL of 150, and HDL of 40. The Hemoglobin A1c was elevated to 13.3. Her TSH was normal at 1.04 with a free T4 of 0.87. The toxicology screen was positive for phencyclidine. Her urinalysis revealed 2+ leukocyte esterase, 0-2 red blood cells, and 5-10 white blood cells per high-power field. 5. The MRI scan of the brain revealed three punctate infarcts involving a brainstem in the region of the midbrain with one lesion in the center and the other two lesions on either side. She also had acute infarcts involving both thalami. In addition to these acute infarcts, she had chronic infarcts involving the deep white matter bilaterally. 6. The patient's history, neurological examination, laboratory data, and imaging studies are most consistent with acute infarcts involving the midbrain and thalami causing the visual problems and unsteadiness on her feet. 7. The most likely etiology for the patient's multiple infarcts would be small blood vessel cerebrovascular disease due to hypertension, diabetes mellitus, and dyslipidemia. In addition, the PCP abuse could also be contributing. However, other etiologies for stroke should be excluded including cardiac arrhythmia. 8. Her dysconjugate gaze and diplopia may be related to her electrolyte imbalance superimposed on underlying brain disease. Recommendations 1. The patient was given an explanation of the above-mentioned findings. 2. She was again made aware of the ills of PCP use. 3. The patient's blood pressure should be controlled and brought down to the physiological range that is < 120/80 mmHg at all times. 4. Her dyslipidemia should be treated aggressively with an LDL goal of <70. 5. Her diabetes mellitus should be controlled and hemoglobin A1c goal should be < 6%. 6. Plavix 75 mg for secondary stroke prevention. 7. Observe closely. Hemant Hayes M.D., M.S.P.H. Hemant Hayes MD Jul 22, 2019 16:40
--- NOTE | 2019-07-22 19:30 | NUR ---
HAND-OFF: Report given to DAVID Alatorre.
--- NOTE | 2019-07-22 19:45 | NUR ---
NURSE NOTES: Pt received from DAVID Perdomo alert and oriented x3 with no acute s/s of distress noted. Currently sitting up on chair, watching TV. IV site asymptomatic and patent on L hand 24 g, saline lock. Call light and belongings within reach.
[2019-07-22 20:00] VITALS: BP 123/76
[2019-07-22] MEDS: Levemir Flexpen SUBQ SCH (21:00)
[2019-07-22] MEDS: Atorvastatin 20mg tab ORAL SCH (21:21)
[2019-07-23] VITALS: BP 138/81
[2019-07-23 04:00] VITALS: BP 127/72
[2019-07-23 05:51] LABS: BASOPHILS % (AUTO) 0.7 % (0.0-2.0); EOSINOPHILS % (AUTO) 1.4 % (0.0-3.0); HEMATOCRIT 41.6 % (37.0-47.0); HEMOGLOBIN 13.9 G/DL (12.0-16.0); LYMPHOCYTES % (AUTO) 34.5 % (20.0-45.0); MEAN CORPUSCULAR VOLUME 91 FL (80-99); MONOCYTES % (AUTO) 10.1 % (1.0-10.0); NEUTROPHILS % (AUTO) 53.3 % (45.0-75.0); PLATELET COUNT 296 K/UL (150-450); RED BLOOD COUNT 4.56 M/UL (4.20-5.40); RED CELL DISTRIBUTION WIDTH 11.7 % (11.6-14.8); WHITE BLOOD COUNT 9.5 K/UL (4.8-10.8)
[2019-07-23 06:04] LABS: ANION GAP 11 mmol/L (5-15); BLOOD UREA NITROGEN 22 mg/dL (7-18); CALCIUM 9.3 MG/DL (8.5-10.1); CARBON DIOXIDE 25 MMOL/L (21-32); CHLORIDE 106 MMOL/L (98-107); CREATININE 0.9 MG/DL (0.55-1.30); POTASSIUM 3.6 MMOL/L (3.5-5.1); SODIUM 142 MMOL/L (136-145)
[2019-07-23] MEDS: valACYclovir HCL 500mg tab ORAL SCH (06:21)
[2019-07-23] MEDS: metFORMIN 500mg tab ORAL SCH ×2 (06:21→10:50)
[2019-07-23] MEDS: NovoLOG Insulin Flexpen SUBQ SCH ×2 (06:23→11:50)
[2019-07-23] MEDS: Insulin NovoLOG Flexpen S/S (Mod) SUBQ SCH ×2 (06:23→11:30)
[2019-07-23] MEDS: Heparin 5000 units/ml inj SUBQ SCH (06:28)
--- NOTE | 2019-07-23 06:48 | General Progress Note ---
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.10 - Hallucinogen abuse, uncomplicated SNOMED: 1648796 Assessment/Plan: continue Levemir 30 units qhs continue Novolog 10 units ac tid continue NISS ac / hs continue Metformin 500 mg tid Subjective Allergies: Coded Allergies: No Known Allergies (Unverified , 07/16/19) Subjective events noted glucose values are stable Item Value Date Time Bedside Blood Glucose 133 mg/dl H 07/23/19 0623 Bedside Blood Glucose 130 mg/dl H 07/22/19 2127 Bedside Blood Glucose 166 mg/dl H 07/22/19 1645 Bedside Blood Glucose 154 mg/dl H 07/22/19 1152 Bedside Blood Glucose 124 mg/dl H 07/22/19 0630 Objective Last 24 Hour Vital Signs Date Time Temp Pulse Resp B/P (MAP) Pulse Ox O2 Delivery O2 Flow Rate FiO2 07/23/19 04:00 97.9 68 18 127/72 (90) 96 07/23/19 04:00 74 07/23/19 00:00 78 07/23/19 00:00 97.4 70 18 138/81 (100) 97 07/22/19 21:24 73 123/76 07/22/19 21:00 Room Air 07/22/19 20:00 73 07/22/19 20:00 98.2 73 18 123/76 (92) 98 07/22/19 16:00 72 07/22/19 16:00 98.3 74 18 107/65 (79) 98 07/22/19 12:00 97.1 72 18 124/81 (95) 99 07/22/19 12:00 71 07/22/19 09:01 66 153/94 07/22/19 09:01 66 153/94 07/22/19 09:00 Room Air 07/22/19 08:00 97.4 66 18 153/94 (113) 98 07/22/19 08:00 76 07/22/19 06:51 97.7 Intake and Output 07/22/19 07/23/19 19:00 07:00 Intake Total 820 ml Balance 820 ml Intake Oral 820 ml # Voids 2 2 # Bowel Movements 1 1 Laboratory Tests 07/23/19 05:30: White Blood Count 9.5, Red Blood Count 4.56, Hemoglobin 13.9, Hematocrit 41.6, Mean Corpuscular Volume 91, Mean Corpuscular Hemoglobin 30.5, Mean Corpuscular Hemoglobin Concent 33.4, Red Cell Distribution Width 11.7, Platelet Count 296, Mean Platelet Volume 7.2, Neutrophils (%) (Auto) 53.3, Lymphocytes (%) (Auto) 34.5, Monocytes (%) (Auto) 10.1H, Eosinophils (%) (Auto) 1.4, Basophils (%) ( Auto) 0.7, Sodium Level 142, Potassium Level 3.6, Chloride Level 106, Carbon Dioxide Level 25, Anion Gap 11, Blood Urea Nitrogen 22H, Creatinine 0.9, Estimat Glomerular Filtration Rate > 60, Glucose Level 157H, Calcium Level 9.3, Magnesium Level 1.5L Height (Feet): 5 Height (Inches): 7.00 Weight (Pounds): 216 General Appearance: no apparent distress Neck: normal alignment Cardiovascular: normal rate Respiratory/Chest: decreased breath sounds Abdomen: normal bowel sounds Objective Current Medications Medications (Trade) Dose Ordered Sig/Artem Route PRN Reason Start Time Stop Time Status Last Admin Dose Admin Acetaminophen (Tylenol) 650 mg Q4H PRN ORAL Mild Pain (Pain Scale 1-3) 07/16/19 17:15 08/15/19 17:14 Acetaminophen (Tylenol) 650 mg Q4H PRN ORAL fever 07/16/19 17:15 08/15/19 17:14 Acetaminophen (Tylenol) 650 mg Q4H PRN RECTAL Mild Pain (Pain Scale 1-3) 07/16/19 17:15 08/15/19 17:14 Acetaminophen (Tylenol) 650 mg Q4H PRN RECTAL fever 07/16/19 17:15 08/15/19 17:14 Amlodipine Besylate (Norvasc) 10 mg DAILY ORAL 07/19/19 09:00 08/18/19 08:59 07/22/19 09:01 Aspirin (ASA) 81 mg DAILY ORAL 07/17/19 10:30 08/16/19 10:29 07/22/19 09:01 Atorvastatin Calcium (Lipitor) 40 mg BEDTIME ORAL 07/17/19 21:00 08/16/19 20:59 07/22/19 21:21 Bisacodyl (Dulcolax) 10 mg DAILYPRN PRN RECTAL Constipation 07/16/19 17:15 08/15/19 17:14 Carvedilol (Coreg) 12.5 mg EVERY 12 HOURS ORAL 07/20/19 21:00 08/19/19 20:59 07/22/19 21:24 Clopidogrel Bisulfate (Plavix) 75 mg DAILY ORAL 07/18/19 09:00 08/17/19 08:59 07/22/19 09:01 Dextrose (Dextrose 50%) 25 ml Q30M PRN IV Hypoglycemia 07/17/19 13:00 08/16/19 12:59 Dextrose (Dextrose 50%) 50 ml Q30M PRN IV Hypoglycemia 07/17/19 13:00 08/16/19 12:59 Diphenhydramine HCl (Benadryl) 25 mg Q6H PRN ORAL Itching/Pruritis 07/16/19 17:15 08/15/19 17:14 Docusate Sodium (Colace) 100 mg EVERY 12 HOURS ORAL 07/16/19 21:00 08/15/19 20:59 07/22/19 21:24 Famotidine (Pepcid) 40 mg DAILY ORAL 07/17/19 09:00 08/16/19 08:59 07/22/19 09:02 Gabapentin (Neurontin) 100 mg DAILY ORAL 07/17/19 09:00 08/16/19 08:59 07/22/19 09:01 Heparin Sodium (Porcine) (Heparin 5000 units/ml) 5,000 units EVERY 8 HOURS SUBQ 07/16/19 22:00 08/15/19 21:59 07/23/19 06:28 Hydromorphone HCl (Dilaudid) 0.5 mg Q4H PRN IVP severe pain 07/16/19 17:15 07/23/19 17:14 Insulin Aspart (NovoLOG) 10 units NOVOTIAC SUBQ 07/18/19 06:30 08/16/19 16:49 07/23/19 06:23 Insulin Aspart (NovoLOG) No Dose BEFORE MEALS AND HS SUBQ 07/16/19 21:00 08/15/19 20:59 07/23/19 06:23 Insulin Detemir (Levemir) 30 units BEDTIME SUBQ 07/18/19 21:00 08/16/19 20:59 07/21/19 21:43 Lorazepam (Ativan) 1 mg Q4H PRN ORAL For Anxiety 07/16/19 17:15 07/23/19 17:14 Magnesium Hydroxide (Mom) 30 ml HSPRN PRN ORAL Constipation 07/16/19 17:15 08/15/19 17:14 Metformin HCl (Glucophage) 500 mg TIAC ORAL 07/17/19 16:30 08/16/19 16:29 07/23/19 06:21 Methocarbamol (Robaxin) 500 mg TIDPRN PRN ORAL spaspm 07/16/19 17:30 08/15/19 17:29 Metoclopramide HCl (Reglan) 10 mg Q6H PRN IVP Nausea & Vomiting 07/16/19 17:15 08/15/19 17:14 Nifedipine (Adalat) 10 mg Q8H PRN ORAL sbp >175, dbp >100 07/16/19 20:30 08/15/19 20:29 Nitroglycerin (Ntg) 0.4 mg Q5M PRN SL Prn Chest Pain 07/16/19 17:15 08/15/19 17:14 Ondansetron HCl (Zofran) 4 mg Q4H PRN IVP Nausea & Vomiting 07/22/19 09:45 08/21/19 09:44 07/22/19 09:57 Polyethylene Glycol (Miralax) 17 gm DAILYPRN PRN ORAL Constipation 07/16/19 17:15 08/15/19 17:14 Prochlorperazine (Compazine) 10 mg Q6H PRN IVP Nausea & Vomiting 07/16/19 17:15 08/15/19 17:14 Tramadol HCl (Ultram) 50 mg Q6H PRN ORAL mod pain 07/16/19 17:30 07/23/19 17:29 07/22/19 06:21 Valacyclovir HCl (Valtrex) 1,000 mg Q8HR ORAL 07/16/19 22:00 07/23/19 23:59 07/23/19 06:21 Zolpidem Tartrate (Ambien) 5 mg DAILYPRN PRN ORAL Insomnia 07/16/19 17:15 07/23/19 17:14 Trey Levy MD Jul 23, 2019 06:48
--- NOTE | 2019-07-23 07:34 | NUR ---
HAND-OFF: Report given to DAVID Manuel.
--- NOTE | 2019-07-23 07:49 | NUR ---
NURSE NOTES: Received report from DAVID Alatorre. Pt is Sleeping in bed. No distress noted. Bed is in lowest position, side rails up X2, and call light is within reach. Will continue to monitor.
[2019-07-23 08:00] VITALS: BP 165/74
[2019-07-23] MEDS: Aspirin Baby 81mg ORAL SCH (08:51)
[2019-07-23] MEDS: Docusate 100mg cap ORAL SCH ×2 (08:51→08:59)
[2019-07-23] MEDS: Carvedilol 12.5mg tab ORAL SCH (08:52)
--- NOTE | 2019-07-23 10:30 | Discharge Summary ---
Discharge Summary Hospital Course Date of Admission Jul 16, 2019 at 14:05 Date of Discharge Jul 23, 2019 Admitting Diagnosis weakness, ataxia, lacunar infarct HPI Rowena Shirley is a 59 year old female who was admitted on Jul 16, 2019 at 14: 05 for Weakness,Ataxia,Lacunar Infarct Consultations Neurology Endocrinology Procedures Imaging studies TTE: EF 60 %, no valvular abnormalities MRI brain: Multiplet lacunar strokes in the mid brain and bilateral thalamus MRA Head and Neck: Distal R P 1 stenosis and R [employer] territory stroke Hospital Course Assessment/Plan Assessment/Plan: 59 yo F PMH of HTN present complaining of diploplia for 5 days, ataxia, and found to have hyperglycemia in the ED # Diploplia/weakness in setting of substance abuse (PCP) - Neurology consult, reviewed and recommendation to continue Plavix for secondary stroke prevention, statin and BP control. - Psyche consult appreciate reqs - f/u final read MRA head and neck: Reviewed - ED reports acute infarcts and [facility] with no TPA, pt out of window - ekg and troponins: Reviewed - PT OT: Recommend nursing facility or rehab - check flp; elevated, goal LDL less than 70 - statin -Blood pressure goal less than 120/80,, continue Norvasc and increased coreg from 6.25 to 12.5 #Metabolic encephalopathy secondary to PCP and chronic vascular changes -Continue management of blood pressure, diabetes -Check B12 and folate: wnl -RPR negative Neurology INPUT The chemistry panel revealed hyponatremia with a sodium of 134, a chloride of 97 , a blood glucose of 508, and AST 13, ALT 31, and alkaline phosphatase elevated at 122. Her lipid profile revealed a total cholesterol of 230, LDL of 150, and HDL of 40. The Hemoglobin A1c was elevated to 13.3. Her TSH was normal at 1.04 with a free T4 of 0.87. The toxicology screen was positive for phencyclidine. Her urinalysis revealed 2+ leukocyte esterase, 0-2 red blood cells, and 5-10 white blood cells per high-power field. 5. The MRI scan of the brain revealed three punctate infarcts involving a brainstem in the region of the midbrain with one lesion in the center and the other two lesions on either side. She also had acute infarcts involving both thalami. In addition to these acute infarcts, she had chronic infarcts involving the deep white matter bilaterally. 6. The patient's history, neurological examination, laboratory data, and imaging studies are most consistent with acute infarcts involving the midbrain and thalami causing the visual problems and unsteadiness on her feet. 7. The most likely etiology for the patient's multiple infarcts would be small blood vessel cerebrovascular disease due to hypertension, diabetes mellitus, and dyslipidemia. In addition, the PCP abuse could also be contributing. However, other etiologies for stroke should be excluded including cardiac arrhythmia. 8. Her dysconjugate gaze and diplopia may be related to her electrolyte imbalance superimposed on underlying brain disease. # New onset DM2 - check a1c: 13 - check FLP: Reviewed -Levemir titrated by endocrinology, 30 units QHS, Novolog 10 units AC TID, SHELLY - Endo consult, appreciate reqs - accuchecks qac and qhs - diabetic diet - diabetic education - Good response to therapy # Shingles - lesions are crusted over, patient does not need iso - valacyclovir 1g tid x y days (07/16-07/23) completed. - gabapentin for pain control - pain control, see orders # DESI, prerenal and resolved - monitor bmp - avoid nephrotoxic meds - UA: Reviewed - monitor I/O # Uncontrolled HTN, improved -Continue meds as per above - nifedipine prn # Hypokalemia Resolved. FULL CODE time of note may not reflect time of my encounter Discharge Condition Upon Discharge: stable Discharge Disposition Patient was discharged to SNF Discharge Diagnoses: (1) Diplopia (2) HTN (hypertension) (3) PCP (phencyclidine) abuse (4) Uncontrolled diabetes mellitus (5) Lacunar infarct, acute Jenni Barrientos MD Jul 23, 2019 10:30
--- NOTE | 2019-07-23 11:09 | NUR ---
RD ASSESSMENT & RECOMMENDATIONS SEE CARE ACTIVITY FOR COMPLETE ASSESSMENT DAILY ESTIMATED NEEDS: Needs based on DM, cardiac 70.6kg adj 25-30 kcals/kg 7934-7889 total kcals 1-1.5 g protein/kg 71-106 g total protein 25-30 mL/kg 8896-6275 total fluid mLs NUTRITION DIAGNOSIS: 1) Decreased fat needs r/t cardiac status as evidenced by elev lipid panel: triglycerides 258, Chol 239, LDL 158. 2) Altered nutrition related lab values r/t DM as evidenced by A1C 13.7, elev BG on adm (508), Uglu 4+ on adm. CURRENT DIET: CCHO med PO DIET RECOMMENDATIONS--->>> diet change to CARDIAC/ [facility] MED ------- ADDITIONAL RECOMMENDATIONS: 1) Obtain a standing weight as able 2) B-complex daily 3) Rec high fiber diet as tolerated 4) Diet edu as able
--- NOTE | 2019-07-23 11:45 | NUR ---
NURSE NOTES: Pt does not want me to check sugar at this time.
--- NOTE | 2019-07-23 12:28 | NUR ---
NURSE NOTES: Pt refused vital signs and blood sugar check at this time. Will attempt to recheck..
--- NOTE | 2019-07-23 13:20 | NUR ---
*-* INSURANCE *-* CLINICALS HAVE BEEN FAXED TO: NATALIE ENNIS:DELONTE F: [phone] T: [phone]
[2019-07-23] MEDS ORDERED: AMBIEN5 MG ORAL (13:32)
[2019-07-23] MEDS ORDERED: ATIVAN1 MG ORAL (13:32)
[2019-07-23] MEDS ORDERED: LEVEMIR FL100 UNIT/1 SUBQ (13:32)
[2019-07-23] MEDS ORDERED: PLAVIX75 MG ORAL (13:32)
[2019-07-23] MEDS ORDERED: GLUCOPHAGE500 MG ORAL (13:32)
[2019-07-23] MEDS ORDERED: NORVASC10 MG ORAL (13:32)
[2019-07-23] MEDS ORDERED: NOVOLOG100 UNITS1 SUBQ ×2 (13:32)
[2019-07-23] MEDS ORDERED: GABAPENTIN100 MG ORAL (13:32)
[2019-07-23] MEDS ORDERED: COREG12.5 MG ORAL (13:32)
[2019-07-23] MEDS ORDERED: FAMOTIDINE20 MG ORAL (13:32)
[2019-07-23] MEDS ORDERED: ACETAMINOPHEN325 M1 ORAL (13:32)
[2019-07-23] MEDS ORDERED: TRAMADOL HCL50 MG ORAL (13:32)
[2019-07-23] MEDS ORDERED: LIPITOR20 MG ORAL (13:32)
[2019-07-23] MEDS ORDERED: MOM30 ML ORAL (13:32)
[2019-07-23] MEDS ORDERED: ADALAT10 MG ORAL (13:32)
[2019-07-23] MEDS ORDERED: NIFEdipine 10mg cap ORAL SCH (13:37)
--- NOTE | 2019-07-23 13:56 | NUR ---
DISCHARGE PLANNED PATIENT WILL DISCHARGE TO [facility] ROOM 2B T: [phone] FOR NURSE TO NURSE REPORT [facility] HAS BEEN ARRANGED FOR 1530 [employer]
[2019-07-23 16:00] VITALS: BP 157/77
--- NOTE | 2019-07-23 16:20 | NUR ---
NURSE NOTES: Patient was discharged per MD orders. Pt stable at time of DC. Heart monitor removed and returned to MT. OV removed. No redness or swelling noted. Belongings accounted for. Medications picked up from pharmacy and returned to pt.
--- NOTE | 2019-07-23 16:29 | Neurology Progress Note ---
Interim History Interim History Interim History Ms. Shirley feels better today Her vision is better. She has no double vision, however, when she moves her eyes up and down she feels very uncomfortable. The mind is clear. Her spirits are fair. She denies any new neurological symptoms. She denies any weakness on one side of the other, numbness on one side of the other, problems with speech, problems with language, problems with memory, other neurological symptoms. Plans are to go to a SNF today. Review of Systems Neuro Review of Systems Benign. Objective Physical Exam Last Vital Signs Date Time Temp Pulse Resp B/P (MAP) Pulse Ox O2 Delivery O2 Flow Rate FiO2 07/23/19 16:00 97.5 70 20 157/77 (103) 99 07/23/19 09:00 Room Air Laboratory Tests Test 07/23/19 05:30 White Blood Count 9.5 K/UL (4.8-10.8) Red Blood Count 4.56 M/UL (4.20-5.40) Hemoglobin 13.9 G/DL (12.0-16.0) Hematocrit 41.6 % (37.0-47.0) Mean Corpuscular Volume 91 FL (80-99) Mean Corpuscular Hemoglobin 30.5 PG (27.0-31.0) Mean Corpuscular Hemoglobin Concent 33.4 G/DL (32.0-36.0) Red Cell Distribution Width 11.7 % (11.6-14.8) Platelet Count 296 K/UL (150-450) Mean Platelet Volume 7.2 FL (6.5-10.1) Neutrophils (%) (Auto) 53.3 % (45.0-75.0) Lymphocytes (%) (Auto) 34.5 % (20.0-45.0) Monocytes (%) (Auto) 10.1 % (1.0-10.0) H Eosinophils (%) (Auto) 1.4 % (0.0-3.0) Basophils (%) (Auto) 0.7 % (0.0-2.0) Sodium Level 142 MMOL/L (136-145) Potassium Level 3.6 MMOL/L (3.5-5.1) Chloride Level 106 MMOL/L (98-107) Carbon Dioxide Level 25 MMOL/L (21-32) Anion Gap 11 mmol/L (5-15) Blood Urea Nitrogen 22 mg/dL (7-18) H Creatinine 0.9 MG/DL (0.55-1.30) Estimat Glomerular Filtration Rate > 60 mL/min (>60) Glucose Level 157 MG/DL (74-106) H Calcium Level 9.3 MG/DL (8.5-10.1) Magnesium Level 1.5 MG/DL (1.8-2.4) L Neurologic Exam Objective PHYSICAL EXAMINATION: GENERAL: She is a well-developed and well-nourished obese black lady, sitting up in a chair, in no acute distress. HEAD: Normocephalic and atraumatic. EENT: Examination benign. NECK: No neck rigidity was observed. NEUROLOGICAL EXAMINATION: MENTAL STATUS EXAMINATION: She was awake and alert. She was oriented to person, place, and time. She was able to recall 3/3 words immediately, but could only remember 2/3 words in 1 minute and 3 minutes. She was able to remember presidents, Trump and Obama, but could not remember presidents prior to that. She refused to cooperate for further mental status tests. SPEECH: She had no dysarthria. LANGUAGE: She had no aphasia. CRANIAL NERVE EXAMINATION: II: The visual duenas were intact on confrontation testing. She had no diplopia. III, IV & : The external ocular movements were full. Her gaze was conjugate. The pupils were 3 mm in diameter, equal, round, regular, and reactive sluggishly to light. V: She had normal facial sensations, and the temporales, masseters, and pterygoids functioned normally. VII: She had normal facial expressions and no facial asymmetry. VIII: She was able to hear well bilaterally and had no nystagmus. IX: The palate moved symmetrically on phonation. X: She had no hoarseness of voice. XI: The sternocleidomastoids and trapezii functioned normally. XII: The tongue was in the midline without any fasciculations or atrophy. MOTOR SYSTEM: The tone was normal in all four extremities. Examination of muscle mass revealed no focal wasting. Examination of power revealed G 5/5 power in all muscle groups tested. SENSORY EXAMINATION: She had intact sensations to pinprick, light touch, and graphesthesia. COORDINATION: She performed well on kapbgs-ne-sfve and zspi-[id number] testing. REFLEXES: 0 at the biceps, triceps, brachioradialis, knees, and ankles. The plantar responses were flexor bilaterally. STANCE: She had a wide-based but stable stance. GAIT: She walked with a mildly ataxic gait. Impression/Recommendations Diagnostic Impression 1. Ms. Rowena Shirley is a 59-year-old, right-handed, black lady, who does have a long history of hypertension, dyslipidemia, and PCP use. About two weeks ago, she developed the shingles over her right lower lumbar nerve roots and then one week ago she started to feel unsteady on her feet. This was associated with a sensation of being "dizzy." The problem got progressively worse and on 2018 she started to notice double vision. This problem became quite bothersome and as a result of that she presented to the [facility] emergency room. 2. She feels better today Her vision is better. She has no double vision, however, when she moves her eyes up and down she feels very uncomfortable. The mind is clear. Her spirits are fair. She denies any new neurological symptoms. Plans are to go to a SNF today. 3. On neurological examination, at this time, she does have problems with recent and remote memory. Her eyes are conjugate and the diplopia has resolved. She has absent deep tendon reflexes, a wide-based stance, and a mildly ataxic gait. 4. Laboratory tests on my initial evaluation revealed a relatively normal CBC. The chemistry panel revealed hyponatremia with a sodium of 134, a chloride of 97 , a blood glucose of 508, and AST 13, ALT 31, and alkaline phosphatase elevated at 122. Her lipid profile revealed a total cholesterol of 230, LDL of 150, and HDL of 40. The Hemoglobin A1c was elevated to 13.3. Her TSH was normal at 1.04 with a free T4 of 0.87. The toxicology screen was positive for phencyclidine. Her urinalysis revealed 2+ leukocyte esterase, 0-2 red blood cells, and 5-10 white blood cells per high-power field. 5. The MRI scan of the brain revealed three punctate infarcts involving a brainstem in the region of the midbrain with one lesion in the center and the other two lesions on either side. She also had acute infarcts involving both thalami. In addition to these acute infarcts, she had chronic infarcts involving the deep white matter bilaterally. 6. The patient's history, neurological examination, laboratory data, and imaging studies are most consistent with acute infarcts involving the midbrain and thalami causing the visual problems and unsteadiness on her feet. 7. The most likely etiology for the patient's multiple infarcts would be small blood vessel cerebrovascular disease due to hypertension, diabetes mellitus, and dyslipidemia. In addition, the PCP abuse could also be contributing. However, other etiologies for stroke should be excluded including cardiac arrhythmia. 8. Her recurrent diplopia and dysconjugate gaze noted yesterday was due to electrolyte imbalances and has now resolved. Recommendations 1. The patient was given an explanation of the above-mentioned findings. 2. She was again made aware of the ills of PCP use. 3. The patient's blood pressure should be controlled and brought down to the physiological range that is < 120/80 mmHg at all times. 4. Her dyslipidemia should be treated aggressively with an LDL goal of <70. 5. Her diabetes mellitus should be controlled and hemoglobin A1c goal should be < 6%. 6. Plavix 75 mg for secondary stroke prevention. 7. Agree with transfer to SNF. Hemant Hayes M.D., M.S.P.H. Hemant Hayes MD Jul 23, 2019 16:29
== END 2019-07-23 16:20 | DRG 45 ==
LOC: EDBD 13:16 → EMR 13:35 → 2E 14:05 → EDBEDREQSVC 17:26 → EDBEDREQ 17:26 → EDBEDREQTM 17:26 → EDBEDREQ 17:27
DX: I63.81 Other cerebral infarction due to occlusion or stenosis of small artery (principal); G92 Toxic encephalopathy; H53.2 Diplopia; F16.10 Hallucinogen abuse, uncomplicated; B02.29 Other postherpetic nervous system involvement; N17.9 Acute kidney failure, unspecified; E87.6 Hypokalemia; E11.65 Type 2 diabetes mellitus with hyperglycemia; E78.5 Hyperlipidemia, unspecified; B02.9 Zoster without complications; R27.0 Ataxia, unspecified; F41.9 Anxiety disorder, unspecified; F19.10 Other psychoactive substance abuse, uncomplicated
CPT/HCPCS: 36415; 70450; 70544; 70551; 71045; 80048; 80053; 80061; 80307; 81003; 82550; 82607; 82746; 82962; 83036; 83690; 83735; 84132; 84439; 84443; 84484; 85025; 85610; 85651; 85730; 86592; 87081; 93005; 93306; 93880; 96360; 99291; J1815; J2405; J8499; S5561

== ENCOUNTER 2019-12-17 16:10 | Inpatient (IN) | payer MEDICAID ==
[~2019-12-17] VITALS: Ht 170.2 cm; Wt 93.4 kg
[~2019-12-17 16:10] MED LIST: ACETAMINOPHEN325 M1 ORAL; ADALAT10 MG ORAL; AMBIEN5 MG ORAL; AMLODIPINE BESYL5 MG ORAL; ASPIR 8181 MG ORAL; ASPIRIN81 MG ORAL; ATIVAN1 MG ORAL; COREG12.5 MG ORAL; FAMOTIDINE20 MG ORAL; GABAPENTIN100 MG ORAL; GLUCOPHAGE500 MG ORAL; HYDROCHLOROTHIA25 MG ORAL; LEVEMIR FL100 UNIT/1 SUBQ; LIPITOR20 MG ORAL; LOSARTAN POTASS50 MG ORAL; METFORMIN HCL1000 M1 ORAL; MOM30 ML ORAL; NORVASC10 MG ORAL; NOVOLOG100 UNITS1 SUBQ; PLAVIX75 MG ORAL; TRAMADOL HCL50 MG ORAL
--- NOTE | 2019-12-17 16:30 | NUR ---
ED Nurse Note: Pt ambulated into ED from [facility] "not feeling well." Pt requests a check up. VS elevated, ERMD made aware. Pt reports hx of stroke but denies any other medical history. Awaiting ERMD
[2019-12-17 16:32] VITALS: BP 160/112
[2019-12-17 17:00] VITALS: BP 160/87
--- NOTE | 2019-12-17 17:08 | NUR ---
ED Nurse Note: ERMD at bedside assessing pt.
[2019-12-17 17:11] LABS: BASOPHILS % (AUTO) 1.1 % (0.0-2.0); HEMATOCRIT 45.4 % (37.0-47.0); HEMOGLOBIN 15.4 G/DL (12.0-16.0); LYMPHOCYTES % (AUTO) 30.4 % (20.0-45.0); MEAN CORPUSCULAR VOLUME 89 FL (80-99); MONOCYTES % (AUTO) 8.6 % (1.0-10.0); NEUTROPHILS % (AUTO) 57.9 % (45.0-75.0); PLATELET COUNT 253 K/UL (150-450); RED BLOOD COUNT 5.12 M/UL (4.20-5.40); RED CELL DISTRIBUTION WIDTH 11.4 % (11.6-14.8)
[2019-12-17 17:22] LABS: INR 0.9 (0.9-1.1)
[2019-12-17 17:57] LABS: ALANINE AMINOTRANSFERASE 32 U/L (12-78); ANION GAP 11 mmol/L (5-15); ASPARTATE AMINO TRANSFERASE 17 U/L (15-37); BILIRUBIN,TOTAL 0.3 MG/DL (0.2-1.0); BLOOD UREA NITROGEN 12 mg/dL (7-18); CALCIUM 9.5 MG/DL (8.5-10.1); CARBON DIOXIDE 28 MMOL/L (21-32); CHLORIDE 100 MMOL/L (98-107); CREATININE 0.8 MG/DL (0.55-1.30); POTASSIUM 3.8 MMOL/L (3.5-5.1); SODIUM 139 MMOL/L (136-145)
[2019-12-17 17:58] LABS: ALBUMIN 3.7 G/DL (3.4-5.0); ALBUMIN/GLOBULIN RATIO 0.9 (1.0-2.7); ALKALINE PHOSPHATASE 148 U/L (46-116); CHOLESTEROL 272 MG/DL (< 200); HDL CHOLESTEROL 40 MG/DL (40-60); TRIGLYCERIDES 255 MG/DL (30-150)
--- NOTE | 2019-12-17 18:23 | NUR ---
ED Nurse Note: pt being taken to CT. Vs in stable condition. Pt aao x 3-4. No s/s of distress noted.
[2019-12-17 18:25] LABS: APPEARANCE,URINE CLEAR; COLOR,URINE PALE YELLOW; KETONES,URINE NEGATIVE (NEGATIVE); PH,URINE 7 (4.5-8.0); PROTEIN,URINE NEGATIVE (NEGATIVE)
[2019-12-17 18:26] LABS: BILIRUBIN, URINE NEGATIVE (NEGATIVE); GLUCOSE, URINE (UA) 4+ (NEGATIVE); LEUKOCYTE ESTERASE ,URINE NEGATIVE (NEGATIVE); NITRITE,URINE NEGATIVE (NEGATIVE); UROBILINOGEN,URINE NORMAL MG/DL (0.0-1.0)
[2019-12-17 18:30] VITALS: BP 156/85
--- NOTE | 2019-12-17 18:46 | NUR ---
ED Nurse Note: called lab to remind to run urine drug screen.
--- NOTE | 2019-12-17 19:15 | NUR ---
HANDOFF: REPORT GIVEN TO DAVID GEORGE.
--- NOTE | 2019-12-17 19:17 | NUR ---
ED Nurse Note: Pt back from CT
--- NOTE | 2019-12-17 19:25 | NUR ---
ED Nurse Note: ERMD at bedside
[2019-12-17] MEDS ORDERED: HYDROCHLOROTH12.5 MG ORAL (21:04)
--- NOTE | 2019-12-17 21:06 | NUR ---
ED Nurse Note: pt resting in bed with eyes closed, non-labored reathing, no signs of distress. Will continue to monitor, pt offered juice and snacks.
--- NOTE | 2019-12-17 21:31 | Emergency Room Report ---
History of Present Illness General Chief Complaint: Generalized Weakness Source: Patient Present Illness HPI This patient has a hx of DM, HTN, HLP, CVA, heavy tobacco use and drug abuse. She states that over the past couple days she has had double vision and hasn't "been feeling well." She states that she thinks her friends have been giving her PCP instead of tobacco when she has been vaping. She admits that she has not been taking her regular prescribed medications and isn't able to say why when she is asked. She also says she has felt "weak" overall. She denies cough , fever, chills, cp, sob, abd pain, n/v/d. She has no other complaints. Allergies: Coded Allergies: No Known Allergies (Unverified , 07/16/19) Patient History Past Medical History: see triage record, DM, HTN, CVA/TIA, other - Hx of illicit drug abuse Social History: Reports: smoking, drug use; Denies: alcohol use Now: No Reviewed Nursing Documentation: PMH: Agreed; PSxH: Agreed Nursing Documentation-PMH Hx Hypertension: Yes Hx Diabetes: Yes Hx Cancer: No Hx Gastrointestinal Problems: No Hx Neurological Problems: No Review of Systems All Other Systems: negative except mentioned in HPI Physical Exam Vital Signs Date Time Temp Pulse Resp B/P (MAP) Pulse Ox O2 Delivery O2 Flow Rate FiO2 12/17/19 16:22 98.2 74 19 160/112 (128) 99 Room Air Sp02 EP Interpretation: reviewed, normal General Appearance: no apparent distress, alert, GCS 15, non-toxic, obese Head: normocephalic, atraumatic Eyes: bilateral eye normal inspection, bilateral eye PERRL ENT: hearing grossly normal, normal pharynx, no angioedema, normal voice Neck: full range of motion, supple/symm/no masses Respiratory: chest non-tender, lungs clear, normal breath sounds, no respiratory distress, no retraction, no accessory muscle use, speaking full sentences Cardiovascular #1: regular rate, rhythm, no edema Gastrointestinal: normal bowel sounds, non tender, soft, non-distended, no guarding, no rebound Rectal: deferred Musculoskeletal: back normal, normal range of motion, non-tender Neurologic: alert, motor strength/tone normal, foot worker III-XII nml as tested, oriented x3, sensory intact, cerebellar normal, responsive, speech normal, no focal defects Psychiatric: judgement/insight normal, memory normal, mood/affect normal, no suicidal/homicidal ideation Skin: no rash, normal color Medical Decision Making Diagnostic Impression: Primary Impression: Dysarthria due to acute cerebellar cerebrovascular accident (CVA) Additional Impressions: Hyperglycemia Uncontrolled diabetes mellitus ER Course This patient is found to have acute/subacute cerebellar CVA. The patient does not care for herself and is non-compliant with her diabetes and HTN medications , in addition to using illicit drugs and smoking tobacco. She has poorly controlled DM and HTN. She was given ASA in the ED and admitted for further evaluation by neurology and control of her DM. Laboratory Tests Test 12/17/19 16:45 12/17/19 17:50 White Blood Count 6.0 K/UL (4.8-10.8) Red Blood Count 5.12 M/UL (4.20-5.40) Hemoglobin 15.4 G/DL (12.0-16.0) Hematocrit 45.4 % (37.0-47.0) Mean Corpuscular Volume 89 FL (80-99) Mean Corpuscular Hemoglobin 30.1 PG (27.0-31.0) Mean Corpuscular Hemoglobin Concent 34.0 G/DL (32.0-36.0) Red Cell Distribution Width 11.4 % (11.6-14.8) L Platelet Count 253 K/UL (150-450) Mean Platelet Volume 8.0 FL (6.5-10.1) Neutrophils (%) (Auto) 57.9 % (45.0-75.0) Lymphocytes (%) (Auto) 30.4 % (20.0-45.0) Monocytes (%) (Auto) 8.6 % (1.0-10.0) Eosinophils (%) (Auto) 2.0 % (0.0-3.0) Basophils (%) (Auto) 1.1 % (0.0-2.0) Prothrombin Time 9.8 SEC (9.30-11.50) Prothrombin Time INR 0.9 (0.9-1.1) Activated Partial Thromboplast Time 26 SEC (23-33) Sodium Level 139 MMOL/L (136-145) Potassium Level 3.8 MMOL/L (3.5-5.1) Chloride Level 100 MMOL/L (98-107) Carbon Dioxide Level 28 MMOL/L (21-32) Anion Gap 11 mmol/L (5-15) Blood Urea Nitrogen 12 mg/dL (7-18) Creatinine 0.8 MG/DL (0.55-1.30) Estimate Glomerular Filtration Rate > 60 mL/min (>60) Glucose Level 347 MG/DL (74-106) H Calcium Level 9.5 MG/DL (8.5-10.1) Total Bilirubin 0.3 MG/DL (0.2-1.0) Aspartate Amino Transferase (AST) 17 U/L (15-37) Alanine Aminotransferase (ALT) 32 U/L (12-78) Alkaline Phosphatase 148 U/L (46-116) H Troponin I 0.000 ng/mL (0.000-0.056) Total Protein 7.8 G/DL (6.4-8.2) Albumin 3.7 G/DL (3.4-5.0) Globulin 4.1 g/dL Albumin/Globulin Ratio 0.9 (1.0-2.7) L Triglycerides Level 255 MG/DL (30-150) H Cholesterol Level 272 MG/DL (< 200) H LDL Cholesterol 195 mg/dL (<100) H HDL Cholesterol 40 MG/DL (40-60) Cholesterol/HDL Ratio 6.8 (3.3-4.4) H Thyroid Stimulating Hormone (TSH) 1.209 uiU/mL (0.358-3.740) Free Thyroxine 1.05 NG/DL (0.76-1.46) Free Triiodothyronine 2.7 pg/mL (2.3-4.2) Serum Alcohol < 3 mg/dL Urine Color Pale yellow Urine Appearance Clear Urine pH 7 (4.5-8.0) Urine Specific [place] 1.015 (1.005-1.035) Urine Protein Negative (NEGATIVE) Urine Glucose (UA) 4+ (NEGATIVE) H Urine Ketones Negative (NEGATIVE) Urine Blood Negative (NEGATIVE) Urine Nitrite Negative (NEGATIVE) Urine Bilirubin Negative (NEGATIVE) Urine Urobilinogen Normal MG/DL (0.0-1.0) Urine Leukocyte Esterase Negative (NEGATIVE) Urine Opiates Screen Negative (NEGATIVE) Urine Barbiturates Screen Negative (NEGATIVE) Phencyclidine (PCP) Screen Positive (NEGATIVE) H Urine Amphetamines Screen Negative (NEGATIVE) Urine Benzodiazepines Screen Negative (NEGATIVE) Urine Cocaine Screen Negative (NEGATIVE) Urine Marijuana (THC) Screen Negative (NEGATIVE) EKG Diagnostic Results Rate: normal Rhythm: NSR ST Segments: other - NSST Rhythm Strip Diag. Results EP Interpretation: yes Rate: 70's Rhythm: NSR, no PVC's, no ectopy CT/MRI/US Diagnostic Results CT/MRI/US Diagnostic Results : Imaging Test Ordered: MRI brain, CT head Impression Mild chronic T2 hyperdense foci in the white matter. There is some high signal intensity and hypointense signals that are suggestive of late acute to subacute infarct. Please see official report in electronic medical record. CT head: Impression: Low-attenuation within the left cerebellar hemisphere and possibly right brachium pontis, could indicate acute or subacute infarcts Negative for acute intracranial bleed or mass effect Incidental finding right maxillary the sphenoid sinus disease. This agrees with the preliminary interpretation provided overnight by [facility] teleradiology service. Last Vital Signs Date Time Temp Pulse Resp B/P (MAP) Pulse Ox O2 Delivery O2 Flow Rate FiO2 12/17/19 18:30 98.2 86 16 156/85 99 Room Air Disposition: ADMITTED INPATIENT Condition: Serious Scripts Lisinopril* (ZESTRIL*) 10 Mg Tablet 10 MG ORAL DAILY for 10 Days, #10 TAB Prov: Abimael Mak M.D. 12/25/19 Insulin Detemir (LEVEMIR FLEXPEN) 100 Unit/1 Ml Insuln.pen 20 UNITS SUBQ NOVOLOGBS for 10 Days, #1 EA Prov: Abimael Mak M.D. 12/22/19 Insulin Aspart (Novolog Flexpen) 100 Unit/1 Ml Insuln.pen 0 UNITS SUBQ BEFORE MEALS AND HS for 10 Days, #1 EA Prov: Abimael Mak M.D. 12/22/19 Clopidogrel Bisulfate* (PLAVIX*) 75 Mg Tablet 75 MG ORAL DAILY for 10 Days, #10 TAB Prov: Abimael Mak M.D. 12/22/19 Atorvastatin (Lipitor) 80 Mg Tablet 80 MG ORAL BEDTIME for 10 Days, #10 TAB Prov: Abimael Mak M.D. 12/22/19 Aspirin* (ASPIRIN*) 325 Mg Tablet 325 MG ORAL DAILY for 10 Days, #10 TAB Prov: Abimael Mak M.D. 12/22/19 Hydrochlorothiazide* (HYDROCHLOROTHIAZIDE*) 12.5 Mg Tablet 12.5 MG ORAL DAILY for HTN for 10 Days, #10 TAB Prov: Abimael Mak M.D. 12/22/19 Amlodipine Besylate (Norvasc) 10 Mg Tablet 10 MG ORAL DAILY for 10 Days, #10 TAB Prov: Abimael Mak M.D. 12/22/19 Referrals: [facility],REFERRING (PCP) Tram Reed DO Dec 17, 2019 21:31
[2019-12-17 22:29] VITALS: BP 148/82
--- NOTE | 2019-12-17 23:00 | NUR ---
ED Nurse Note: Pt resting in bed with eyes closed, non-labored breathing, pt has used the bedpan x3. Waiting to give report to upstairs
--- NOTE | 2019-12-17 23:55 | NUR ---
TRANSFER TO FLOOR: Patient transferred to as ordered, per Dr Faye. Report given to dung Burdick . Belongings and medications given to . Family and or S/O informed of transfer.
[2019-12-18] VITALS: BP 150/71
--- NOTE | 2019-12-18 | NUR ---
NURSE NOTES: Admitted patient from ER to Tele rm [id number], denies any pain at this time. Skin is intact Initial wound assessment done,. Patient is on room air and breathing is unlabored. All orders entered from Dr Arceo. Patient's head is raised to 30degress per MD order. Oriented patient to room. Bed is on lowest position, brakes engaged for safety, call light within reach and all needs attended to. Patient is stable. Will continue to monitor and continue with the plan of care.
[2019-12-18 04:00] VITALS: BP 153/93
[2019-12-18] MEDS: NovoLOG Insulin Flexpen SUBQ SCH ×4 (06:30→20:17)
--- NOTE | 2019-12-18 07:30 | NUR ---
NURSE NOTES: Received report from DAVID Mccarthy. Pt is awake, A/Ox4, denies any pain. Pt in RA, breathing even and unlabored. No signs of acute distress. Bed in lowest position, call light and bedside table within reach. Will continue to monitor.
[2019-12-18 08:00] VITALS: BP 148/105
[2019-12-18 08:05] LABS: BASOPHILS % (AUTO) 0.6 % (0.0-2.0); EOSINOPHILS % (AUTO) 2.2 % (0.0-3.0); HEMATOCRIT 41.8 % (37.0-47.0); HEMOGLOBIN 14.5 G/DL (12.0-16.0); LYMPHOCYTES % (AUTO) 37.2 % (20.0-45.0); MEAN CORPUSCULAR VOLUME 87 FL (80-99); MONOCYTES % (AUTO) 9.6 % (1.0-10.0); NEUTROPHILS % (AUTO) 50.4 % (45.0-75.0); PLATELET COUNT 227 K/UL (150-450); RED BLOOD COUNT 4.78 M/UL (4.20-5.40); WHITE BLOOD COUNT 5.3 K/UL (4.8-10.8)
[2019-12-18 08:44] LABS: ANION GAP 10 mmol/L (5-15); BLOOD UREA NITROGEN 6 mg/dL (7-18); CALCIUM 8.6 MG/DL (8.5-10.1); CARBON DIOXIDE 28 MMOL/L (21-32); CHLORIDE 102 MMOL/L (98-107); CREATININE 0.7 MG/DL (0.55-1.30); POTASSIUM 3.4 MMOL/L (3.5-5.1); SODIUM 139 MMOL/L (136-145)
[2019-12-18] MEDS: Aspirin Baby 81mg NG SCH (09:19)
[2019-12-18] MEDS: Enoxaparin 40mg Inj SUBQ SCH (09:20)
--- NOTE | 2019-12-18 09:49 | NUR ---
MECHANIC NOTE SW received a notification on 12/18/2019 that this pt has social service concerns. SW met w/ pt and assessed pt's needs/concerns. Pt presents as A&O 4x, cooperative and having slow thought process. Pt resides w/ her male friend at [address] [place] [address] [place] [address]. Pt is single, never and has two adult children (daughter living in [place], son living in [place]). Pt receives SSI, self payee, and has $400 left for this month. Emergency contact provided : Deanne Pfeiffer(mother living in [place]): [phone]. SW reviewed SUB/TOB use hx w/ pt. Pt uses tobacco and denies substance abuse, reports as a social ETOH drinker. Pt denies hx of mental illness, abuse/neglect and SI/HI. Pt is ambulatory w/o DME and is independent w/ ADLs. Pt reports she has an issue w/ her male friend and expresses that she may not return his home. SW and pt explored possible placement options including family, board and cares and independent living facilities. Pt declined to consider board and cares and independent living facilities. Pt states "I want to have my own housing. I don't want to share with other people" SW explained section 8 housing voucher and low income housing options but these are very difficult at this time. Pt verbalized understanding. Pt states she does not know where she will go upon DC but she can go back to her male friend's house. [facility] provided housing resources for reference. Signed: 12/18/19 at 1002 by VIRGINIA DING <Co-Signature Required>
--- NOTE | 2019-12-18 10:04 | History and Physical ---
History of Present Illness General Date patient seen: Dec 18, 2019 Reason for Hospitalization: Generalized Weakness Present Illness HPI 59-year-old female, poor historian, presented to the ER from the streets complaining of not feeling well and double vision. Patient has a history of prior stroke and wanted to get checked out. She also has high blood pressure. But has not been taking any of her medications. She denies current cigarette smoking, however last week smoked out of the [facility] [place] and she believes it was PCP as she did not like it. At this point she continues to have double vision. She denies chest pain, shortness of breath, palpitations, headache, abdominal pain, nausea, vomiting, diarrhea. Of note patient had a similar presentation in 2019. Back then her U tox was positive for PCP. Past medical surgical history: History of CVA, diabetes, hyperlipidemia, hypertension Social history: Denies tobacco use, substance abuse including PCP, medication noncompliance Family history: Hypertension Allergies: Coded Allergies: No Known Allergies (Unverified , 07/16/19) Medication History Scheduled Amlodipine Besylate (Norvasc), 10 MG ORAL DAILY Aspirin* (Aspir 81*), 81 MG ORAL DAILY Hydrochlorothiazide* (Hydrochlorothiazide*), Unknown Dose ORAL DAILY, (Reported) Discontinued Medications Acetaminophen* (Acetaminophen 325MG Tablet*), 650 MG ORAL Q4H PRN Discontinued Reason: Pt stopped taking med Amlodipine Besylate (Norvasc), 10 MG ORAL DAILY Discontinued Reason: Pt stopped taking med Aspirin* (Aspirin*), 81 MG ORAL DAILY, (Reported) Discontinued Reason: Pt stopped taking med Atorvastatin Calcium* (Lipitor*), 40 MG ORAL BEDTIME Discontinued Reason: Pt stopped taking med Carvedilol (Coreg), 12.5 MG ORAL EVERY 12 HOURS Discontinued Reason: Pt stopped taking med Carvedilol (Coreg), 12.5 MG ORAL EVERY 12 HOURS Discontinued Reason: Therapy completed Clopidogrel Bisulfate* (Plavix*), 75 MG ORAL DAILY Discontinued Reason: Pt stopped taking med Clopidogrel Bisulfate* (Plavix*), 75 MG ORAL DAILY Discontinued Reason: Therapy completed Famotidine* (Pepcid 20mg tablet*), 40 MG ORAL DAILY Discontinued Reason: Pt stopped taking med Gabapentin* (Gabapentin*), 100 MG ORAL DAILY Discontinued Reason: Pt stopped taking med Insulin Aspart (Novolog Flexpen), 10 UNITS SUBQ NOVOTIAC Discontinued Reason: Pt stopped taking med Insulin Aspart (Novolog Flexpen), 0 UNITS SUBQ BEFORE MEALS AND HS Discontinued Reason: Pt stopped taking med Insulin Detemir (Levemir Flexpen), 30 UNITS SUBQ BEDTIME Discontinued Reason: Pt stopped taking med Lorazepam* (Ativan*), 1 MG ORAL Q4H PRN Discontinued Reason: Pt stopped taking med Magnesium Hydroxide (Milk of Magnesia), 30 ML ORAL HSPRN PRN Discontinued Reason: Pt stopped taking med Metformin Hcl* (Glucophage*), 500 MG ORAL TIAC Discontinued Reason: Pt stopped taking med Metformin Hcl* (Metformin Hcl*), 500 MG ORAL BID Discontinued Reason: Therapy completed Nifedipine (Nifedipine*), 10 MG ORAL Q8H PRN Discontinued Reason: Pt stopped taking med Tramadol Hcl* (Ultram*), 50 MG ORAL Q6H PRN Discontinued Reason: Pt stopped taking med Zolpidem Tartrate* (Ambien*), 5 MG ORAL DAILYPRN PRN Discontinued Reason: Pt stopped taking med Patient History Healthcare decision maker Resuscitation status Full Code Advanced Directive on File Review of Systems Constitutional: Reports: weakness Eye: Reports: double vision ENT: Denies: no symptoms, see HPI, ear pain, ear discharge, nose pain, nose congestion, throat pain, throat swelling, mouth pain, hearing loss, nasal discharge, other Respiratory: Denies: no symptoms, see HPI, cough, orthopnea, shortness of breath, stridor, wheezing, CHERRY, sputum, other Cardiovascular: Denies: no symptoms, see HPI, chest pain, edema, palpitations, syncope, PND, other Gastrointestinal: Denies: no symptoms, see HPI, abdominal pain, constipation, diarrhea, nausea, vomiting, melena, hematemesis, other Genitourinary: Denies: no symptoms, see HPI, discharge, dysuria, frequency, hematuria, pain, retention, incontinence, urgency, vag bleed/dc, other Musculoskeletal: Denies: no symptoms, see HPI, back pain, gout, joint pain, joint swelling, muscle pain, muscle stiffness, other Psychiatric: Denies: no symptoms, see HPI, prior hx, anxiety, depressed feelings, emotional problems, SI, HI, hallucinations, other Neurological: Reports: other - Double vision Endocrine: Denies: no symptoms, see HPI, excessive sweating, flushing, intolerance to temperature, increased thirst, increased urine, unexplained weight loss, other Hematologic/Lymphatic: Denies: no symptoms, see HPI, anemia, blood clots, easy bleeding, easy bruising, swollen glands, diathesis, other Physical Exam Physical Exam Narrative general - overweight female, distracted in conversation and has difficulty maintaining eye contact cv- rrr,no m,r,g respiratory- ctab no w,r,c, abd- soft, nondistended, no masses ext- normal muscle tone neuro- CN II-XII intact, 4/5 muscle strength in right hand field hauler and flex/ext, left side 5/5, bl le 5/5, gross sensation intact, dysmetric nose to finger exam , negative pronator drift skin: no ulcer or rash . Last 24 Hour Vital Signs Date Time Temp Pulse Resp B/P (MAP) Pulse Ox O2 Delivery O2 Flow Rate FiO2 12/18/19 08:00 98.0 79 20 148/105 (119) 96 12/18/19 04:00 81 12/18/19 04:00 97.7 78 16 153/93 (113) 98 12/18/19 02:45 Room Air 12/18/19 00:00 70 12/18/19 00:00 97.7 60 20 150/71 (97) 98 12/17/19 23:55 98.4 88 18 148/82 99 Room Air 12/17/19 22:29 98.4 88 18 148/82 99 Room Air 12/17/19 18:30 98.2 86 16 156/85 99 Room Air 12/17/19 17:00 98.2 79 16 160/87 99 Room Air 12/17/19 16:32 74 19 Room Air 12/17/19 16:32 98.2 74 19 160/112 99 Room Air 12/17/19 16:22 98.2 74 19 160/112 (128) 99 Room Air Intake and Output 12/17/19 12/18/19 19:00 07:00 Intake Total 0 ml Balance 0 ml Intake Oral 0 ml # Voids 1 Laboratory Tests Test 12/17/19 16:45 12/17/19 17:50 12/18/19 06:31 White Blood Count 6.0 K/UL (4.8-10.8) 5.3 K/UL (4.8-10.8) Red Blood Count 5.12 M/UL (4.20-5.40) 4.78 M/UL (4.20-5.40) Hemoglobin 15.4 G/DL (12.0-16.0) 14.5 G/DL (12.0-16.0) Hematocrit 45.4 % (37.0-47.0) 41.8 % (37.0-47.0) Mean Corpuscular Volume 89 FL (80-99) 87 FL (80-99) Mean Corpuscular Hemoglobin 30.1 PG (27.0-31.0) 30.3 PG (27.0-31.0) Mean Corpuscular Hemoglobin Concent 34.0 G/DL (32.0-36.0) 34.8 G/DL (32.0-36.0) Red Cell Distribution Width 11.4 % (11.6-14.8) L 11.0 % (11.6-14.8) L Platelet Count 253 K/UL (150-450) 227 K/UL (150-450) Mean Platelet Volume 8.0 FL (6.5-10.1) 7.1 FL (6.5-10.1) Neutrophils (%) (Auto) 57.9 % (45.0-75.0) 50.4 % (45.0-75.0) Lymphocytes (%) (Auto) 30.4 % (20.0-45.0) 37.2 % (20.0-45.0) Monocytes (%) (Auto) 8.6 % (1.0-10.0) 9.6 % (1.0-10.0) Eosinophils (%) (Auto) 2.0 % (0.0-3.0) 2.2 % (0.0-3.0) Basophils (%) (Auto) 1.1 % (0.0-2.0) 0.6 % (0.0-2.0) Prothrombin Time 9.8 SEC (9.30-11.50) Prothromb Time International Ratio 0.9 (0.9-1.1) Activated Partial Thromboplast Time 26 SEC (23-33) Sodium Level 139 MMOL/L (136-145) 139 MMOL/L (136-145) Potassium Level 3.8 MMOL/L (3.5-5.1) 3.4 MMOL/L (3.5-5.1) L Chloride Level 100 MMOL/L (98-107) 102 MMOL/L (98-107) Carbon Dioxide Level 28 MMOL/L (21-32) 28 MMOL/L (21-32) Anion Gap 11 mmol/L (5-15) 10 mmol/L (5-15) Blood Urea Nitrogen 12 mg/dL (7-18) 6 mg/dL (7-18) L Creatinine 0.8 MG/DL (0.55-1.30) 0.7 MG/DL (0.55-1.30) Estimat Glomerular Filtration Rate > 60 mL/min (>60) > 60 mL/min (>60) Glucose Level 347 MG/DL (74-106) H 279 MG/DL (74-106) H Calcium Level 9.5 MG/DL (8.5-10.1) 8.6 MG/DL (8.5-10.1) Total Bilirubin 0.3 MG/DL (0.2-1.0) Aspartate Amino Transf (AST/SGOT) 17 U/L (15-37) Alanine Aminotransferase (ALT/SGPT) 32 U/L (12-78) Alkaline Phosphatase 148 U/L (46-116) H Troponin I 0.000 ng/mL (0.000-0.056) Total Protein 7.8 G/DL (6.4-8.2) Albumin 3.7 G/DL (3.4-5.0) Globulin 4.1 g/dL Albumin/Globulin Ratio 0.9 (1.0-2.7) L Triglycerides Level 255 MG/DL (30-150) H Cholesterol Level 272 MG/DL (< 200) H LDL Cholesterol 195 mg/dL (<100) H HDL Cholesterol 40 MG/DL (40-60) Cholesterol/HDL Ratio 6.8 (3.3-4.4) H Thyroid Stimulating Hormone (TSH) 1.209 uiU/mL (0.358-3.740) Free Thyroxine 1.05 NG/DL (0.76-1.46) Free Triiodothyronine 2.7 pg/mL (2.3-4.2) Serum Alcohol < 3 mg/dL Urine Color Pale yellow Urine Appearance Clear Urine pH 7 (4.5-8.0) Urine Specific [place] 1.015 (1.005-1.035) Urine Protein Negative (NEGATIVE) Urine Glucose (UA) 4+ (NEGATIVE) H Urine Ketones Negative (NEGATIVE) Urine Blood Negative (NEGATIVE) Urine Nitrite Negative (NEGATIVE) Urine Bilirubin Negative (NEGATIVE) Urine Urobilinogen Normal MG/DL (0.0-1.0) Urine Leukocyte Esterase Negative (NEGATIVE) Urine Opiates Screen Negative (NEGATIVE) Urine Barbiturates Screen Negative (NEGATIVE) Phencyclidine (PCP) Screen Positive (NEGATIVE) H Urine Amphetamines Screen Negative (NEGATIVE) Urine Benzodiazepines Screen Negative (NEGATIVE) Urine Cocaine Screen Negative (NEGATIVE) Urine Marijuana (THC) Screen Negative (NEGATIVE) Magnesium Level Pending Height (Feet): 5 Height (Inches): 7.00 Weight (Pounds): 200 Medications Current Medications Medications (Trade) Dose Ordered Sig/Artem Route PRN Reason Start Time Stop Time Status Last Admin Dose Admin Aspirin (ASA) 81 mg DAILY NG 12/18/19 09:00 01/17/20 08:59 12/18/19 09:19 Dextrose (Dextrose 50%) 25 ml Q30M PRN IV Hypoglycemia 12/18/19 02:30 01/17/20 02:29 Dextrose (Dextrose 50%) 50 ml Q30M PRN IV Hypoglycemia 12/18/19 02:30 01/17/20 02:29 Enoxaparin Sodium (Lovenox) 40 mg DAILY SUBQ 12/18/19 09:00 01/17/20 08:59 12/18/19 09:20 Insulin Aspart (NovoLOG) BEFORE MEALS AND HS SUBQ 12/18/19 06:30 01/17/20 06:29 12/18/19 06:30 Objective Narrative MRI brain : Impression: 2 adjacent foci of restricted diffusion in the left cerebellar hemisphere, consistent with acute/subacute infarcts and corresponding to findings reported on recent CT scan. Periventricular white matter T2 hyperintensities, most likely chronic microvascular ischemic changes. Demyelinating disease also possible EKg personally interpreted by me: NSR, left axis, T wave inversion antreloteral leads Assessment/Plan Status: stable Assessment/Plan: 59-year-old female with past medical history of high blood pressure, diabetes, previous stroke, substance abuse including PCP, noncompliance with medications presented with diplopia. Found to have left cerebellar subacute/acute infarct on brain MRI. 1. Cerebellar infarct 2. Uncontrolled hypertension 3. Uncontrolled diabetes with hyperglycemia 4. Hyperlipidemia 5. History of substance abuse including current use of PCP. Plan Admit to telemetry. Per ED out of window for TPA EKG and troponins Repeat echocardiogram Aspirin and statin Permissive hypertension for [address] Tono tillman for substance abuse PT OT Insulin basal bolus for diabetes Encourage medication compliance Check hemoglobin A1c I spent 72 minutes on this encounter. Greater than 50% spent on counseling and care coordination. Plan of care discussed with RN. I spent an additional 35 minutes in reviewing old records. 15 minutes spent in discussing advanced directive with patient. Abimael Mak M.D. Dec 18, 2019 10:04
[2019-12-18 12:00] VITALS: BP 146/95
--- NOTE | 2019-12-18 12:31 | Diagnostic Imaging Report ---
Indication: Double vision and dizziness, weakness, evaluation of abnormal findings on recent CT scan Technique: sagittal T1 fast spin echo, axial T1 FLAIR, axial T2 FLAIR, axial T2 FS PROPELLER, axial T2* GRE, axial diffusion weighted images. ADC and exponential ADC maps generated Comparison: CT scan performed 2 hours earlier Findings: 2 adjacent areas of restricted diffusion are seen in the left cerebellar hemisphere. These correspond to the hypoattenuating foci seen on recent CT scan and demonstrate mildly increased T2 signal. No acute hemorrhage or edema. No mass effect nor midline shift. Normal size ventricles and extra axial CSF spaces. There are scattered punctate deep white matter T2 hyperintensities. There is dolichoectasia of the left vertebral and basilar artery. The vascular flow voids are preserved. Visualized orbits and sinuses are unremarkable. Impression: 2 adjacent foci of restricted diffusion in the left cerebellar hemisphere, consistent with acute/subacute infarcts and corresponding to findings reported on recent CT scan. Periventricular white matter T2 hyperintensities, most likely chronic microvascular ischemic changes. Demyelinating disease also possible This agrees with the preliminary interpretation provided overnight by [facility] service.
--- NOTE | 2019-12-18 12:31 | Diagnostic Imaging Report ---
Indication: Diplopia Technique: Continuous helical CT scanning of the head was performed without intravenous contrast material. Axial and coronal 5 mm sections were generated. Radiation dose was minimized using automated exposure control Dose: Total Dose Length Product - DLP [address] Dose Index - CTDIvol(s) 60 mGy. Comparison: 07/16/2019 Findings: Low-attenuation is seen in the periphery of the left cerebellar hemisphere and in the right brachium pontis, not evident previously. No acute intracranial hemorrhage. No mass effect nor midline shift. Calcification and dolichoectasia of the left vertebral and basilar artery are again noted. Normal gan-white differentiation. Visualized orbits are unremarkable. There is minimal right maxillary sinus disease. There is a small air-fluid level within the sphenoid sinus. There is bilateral inward displacement of the medial orbital henry. The mastoids are clear. The calvarium is intact. Impression: Low-attenuation within the left cerebellar hemisphere and possibly right brachium pontis, could indicate acute or subacute infarcts Negative for acute intracranial bleed or mass effect Incidental finding right maxillary the sphenoid sinus disease. This agrees with the preliminary interpretation provided overnight by [facility] service. The CT scanner at [facility] is accredited by the [employer] and the scans are performed using protocols designed to limit radiation exposure to as low as reasonably achievable to attain images of sufficient resolution adequate for diagnostic evaluation.
--- NOTE | 2019-12-18 14:43 | Diagnostic Imaging Report ---
Indication: Evidence of acute CVA demonstrated on recent MRI, dizziness, vertigo, double vision Technique: Grayscale and duplex images of the bilateral extracranial carotid and vertebral arteries Comparison: 07/18/2019 Findings: Bilaterally, grayscale and duplex images demonstrate mild atherosclerotic plaquing at the carotid bulbs, resulting in less than 50% diameter narrowing. Normal Doppler flow velocities and waveforms. Patent bilateral vertebral arteries, antegrade flow. No significant interim change Impression: Less than 50% diameter stenosis bilaterally Stenosis measurements as based on criteria developed by the [employer] consensus guidelines and are based upon NASCET criteria
--- NOTE | 2019-12-18 15:09 | NUR ---
CASE MANAGEMENT:REVIEW 59 YR OLD FEMALE BIBA FROM STREET CC: GENERALIZED WEAKNESS. DOUBLE VISION SI: CVA. VERTIGO. HYPERGLYCEMIA. UNCONTROLLED DM 98.3 74 19 160/112 99% ON RA GLUCOSE+347 URINE(+) PCP IS: 1L NS BOLUS ASA PO CT HEAD MRI BRAIN
[2019-12-18 16:00] VITALS: BP 151/97
--- NOTE | 2019-12-18 17:30 | Consultation ---
DATE OF CONSULTATION: 12/18/2019 NEUROLOGIC CONSULTATION CONSULTING PHYSICIAN: Mario Sandoval M.D. CHIEF COMPLAINT: This is at least the third 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 The patient was admitted with a chief complaint of equilibrium problems. The patient was admitted to this hospital in June. She saw Dr. Hemant Hayes, neurologist on 07/17/2019. Two weeks previous to the admission, she had the case of shingles involving her right side lumbar nerve roots. She is complaining of unsteadiness in her feet and felt that she had small vessel disease. She was complaining of double vision at that time and noted some dysconjugate gaze. The patient was discharged. The patient is now complaining of disequilibrium and generalized weakness and came to the hospital emergency room last night. The patient's blood glucose was 347. Alkaline phosphatase was 148. Triglycerides and LDL cholesterol were significantly elevated. TSH was normal. The rest of the electrolytes were normal except slightly low potassium today. The patient's CBC is in high-normal range with a normal white count and normal platelets. Urinalysis revealed blood 4+ glucose, otherwise is unremarkable. The toxicology screen was positive for PCP and negative for other illegal drugs. I was asked to see the patient is seen in neurologic consultation. The patient denies any headache, vertigo, seizures or blackouts, tremors, or shakes. She still complains of diplopia. She cannot give a good history. There is no hearing loss or tinnitus. She actually denies dizzy spell. There is no numbness or tingling. There is no neck pain. The patient is admitted to the hospital. She was placed on aspirin 81 mg, Lovenox, insulin, and sodium chloride. There is no family history of neurologic disease. PAST MEDICAL HISTORY/PAST MEDICAL ILLNESSES: See above. ALLERGIES: She denies any known allergies. HABITS: She drinks occasionally. She did not smoke since high school. She denied any illegal drugs to me. SOCIAL HISTORY: She is unmarried, has 2 children in good health. FAMILY HISTORY: Unremarkable. MEDICATIONS: She had been on gabapentin, insulin, lorazepam, magnesium hydroxide, metformin, nifedipine, tramadol, zolpidem, atorvastatin, and Plavix in the past, but she stopped taking these medications. REVIEW OF SYSTEMS: Appetite is good. She is overweight. She is 5 feet 7 inches tall. PHYSICAL EXAMINATION: GENERAL: She is a well-developed, obese woman, in no acute distress. VITAL SIGNS: Blood pressure is 148/105, pulse is 79 and regular, temperature is 98 degrees, respiration rate is 20. HEENT: Reveals that she has upper dentures and hair under chin. NECK: There is some slight tenderness. Neck is basically supple. Carotids are +2 without any bruits. LUNGS: Clear to auscultation. CARDIOVASCULAR: PMI cannot be felt. JVP is probably normal. The patient has normal S1. The S2 is physiologically split. There is no S3, S4, murmurs, or rubs appreciated. ABDOMEN: Obese. Bowel sounds intact. No tenderness, masses, or organomegaly. BACK: There is no tenderness to percussion. EXTREMITIES: Peripheral pulses are +1 in the extremities. NEUROLOGIC: MENTAL STATUS: The patient came to me lethargic, but easily awakened to voice. Judgment cannot be tested. Affect is flat. Memory, past memory is intact to her birthday 1960. Immediate recall is 3/3 objects. Recent recall is 2/3 objects at 5 minutes. Intellect, she could not do similarities. Train and bicycle "has wheels." Orientation, she knew this is 12/18/2019. Did not know the day. Place, she knew she was at [facility], did not know what floor. She is oriented to person. Language function, spoken speech is basically fluent without paraphasias. Repetition was intact. Comprehension is basically intact. CRANIAL NERVE EXAMINATION: CRANIAL NERVE II: Visual duenas are intact to confrontation. Fundi were not visualized. Visual acuity not tested. CRANIAL NERVES III, IV, AND : Extraocular motility was full without complaints of diplopia. Pupils were approximately 3 mm, round, sluggishly reactive to light. CRANIAL NERVE V: Facial and corneal sensation is intact to fine touch. CRANIAL NERVE VII: Facial strength is 5/5 bilaterally. CRANIAL NERVE VIII: Auditory acuity is intact bilaterally. CRANIAL NERVES IX AND X: Gag is intact bilaterally. CRANIAL NERVE XI: Sternocleidomastoid strength is 5/5. CRANIAL NERVE XII: Tongue protrudes in the midline without fasciculations or atrophy. MUSCLE EXAMINATION: Muscle bulk is probably normal. Tone is normal with a decreased strength 5/5 proximally and distally without pronator drift. REFLEXES: 0 in the upper and lower extremities, probably with downgoing toes although there is a lot of withdrawal on testing for Babinski response. COORDINATION: Usnpyv-or-gbba, pyaf-ud-drxo testing is intact. GAIT AND STATION: The patient was unsteady on her feet. She had a normal based gait. SENSORY: Pinprick and fine touch and proprioception were subjectively intact. IMPRESSION: This patient has a mild encephalopathy most likely secondary to her elevated blood sugar. I doubt that she may probably have a fatty liver, which is causing elevated alkaline phosphatase. We will obtain a serum ammonia in her, but there is no asterixis. There is no evidence of CO2 narcosis. Calcium and magnesium should be obtained. As far as a new stroke is concerned, there is no strong evidence that she has any stroke; however, I am going to repeat the MRI scan of the brain. PLAN: 1. MRI scan of the brain. 2. Serum ammonia, calcium, magnesium. 3. B12, methylmalonic acid level. 4. treat hyperglycemia. Thank you for this interesting case. Mario Sandoval MD DR: KEAGAN JOB#: [id number] CC: RIO
--- NOTE | 2019-12-18 19:17 | NUR ---
HAND-OFF: Report given to DAVID Estrada. Pt in stable condition. Endorsed plan of care.
--- NOTE | 2019-12-18 19:30 | NUR ---
NURSE NOTES: Received patient from Celestino HERNANDEZ. Patient in bed, on room air, no signs of respiratory distress. Asleep but easlily awaken. Bed in low position, locked, call light within reach.
[2019-12-18 20:00] VITALS: BP 154/105
[2019-12-18] MEDS: Atorvastatin 80mg tab ORAL SCH (20:12)
[2019-12-19] VITALS: BP 144/73
[2019-12-19 04:00] VITALS: BP 150/99
[2019-12-19] MEDS: NovoLOG Insulin Flexpen SUBQ SCH ×4 (06:08→23:56)
[2019-12-19 08:00] VITALS: BP 130/88
[2019-12-19 08:04] LABS: CREATINE KINASE 40 U/L (26-308)
[2019-12-19] MEDS: Aspirin Baby 81mg NG SCH (09:59)
[2019-12-19] MEDS: Enoxaparin 40mg Inj SUBQ SCH (10:00)
[2019-12-19 12:00] VITALS: BP 148/98
--- NOTE | 2019-12-19 13:09 | NUR ---
CASE MANAGEMENT: REVIEW 12/19/2019 SI:CVA,VERTIGO,HYPERGYLCEMIA,UNCONTROLLED DM 97.5 74 18 150/99 96% RA HGA1C 12.1 IS: ASA QD LIPITOR QHS SS- NOVOLOG SUB AC MEALS LOVENOX SUBQ QD ~~~~TELEMETRY 2 [facility]
--- NOTE | 2019-12-19 13:10 | CDS Physician Query ---
Clarification is required for compliance, coding accuracy, and to reflect severity of illness for this patient Dear Dr. Abimael Mak Date: 12/19/2019 Logging Assistant/CDS Name: Jan Mitchell IMPRESSION: This patient has a mild encephalopathy most likely secondary to her elevated blood sugar. I doubt that she may probably have a fatty liver, which is causing elevated alkaline phosphatase. We will obtain a serum ammonia in her, but there is no asterixis. There is no evidence of CO2 narcosis. Calcium and magnesium should be obtained. As far as a new stroke is concerned, there is no strong evidence that she has any stroke; however, I am going to repeat the MRI scan of the brain. "encephalopathy" documented in Consultation notes Please indicate the nature and chronicity of the condition below: [] Metabolic Encephalopathy [] Toxic Encephalopathy [x] Toxic - Metabolic Encephalopathy [] Encephalopathy, Other [] Dementia with Delirium [] Hypoxic encephalopathy [] Posterior reversible encephalopathy syndrome [] Other: [] Not Applicable Present on Admission: [x] Yes [] No [] Clinically Undetermined abimael mak 12/19/2019 Physician signature Date Please also document in your Progress Notes and/or Discharge Summary and indicate if the condition was present on admission. MTDD
--- NOTE | 2019-12-19 15:03 | NUR ---
P.T Note: P.T evaluation completed and tx initiated. Pleas refer to P.T evaluation for current functional status. Pt is alert, O x 4 , pleasant and cooperative. Pt reports c/o R facial pain and headache 5/10 and feeling generally weak and unsteady. Pt also reports double vision. Pt currently requires MIN A X 1 for bed mobilities and transfer activities. Pt able to sit unsupported , was able to stand with FWW however unable to tolerate and participate in gait assessment due to c/o fatigue and headache. Pt will be seen for skilled P.T service to address strength, endurance, balance and safety with mobility. Recommend SNF for short term rehab at [place].
[2019-12-19 16:00] VITALS: BP 136/75
--- NOTE | 2019-12-19 19:15 | NUR ---
NURSE NOTES: Received patient from Celestino HERNANDEZ. Patient in bed, on room air, no signs of respiratory distress. Bed in low position, locked, call light within reach. Will continue with plan of care.
[2019-12-19 20:00] VITALS: BP 152/96
--- NOTE | 2019-12-19 22:13 | General Progress Note ---
Assessment/Plan Status: stable Assessment/Plan: 59-year-old female with past medical history of high blood pressure, diabetes, previous stroke, substance abuse including PCP, noncompliance with medications presented with diplopia. Found to have left cerebellar subacute/acute infarct on brain MRI. 1. Cerebellar infarct 2. Uncontrolled hypertension 3. Uncontrolled diabetes with hyperglycemia 4. Hyperlipidemia 5. History of substance abuse including current use of PCP. Plan telemetry. Per ED out of window for TPA EKG and troponins Repeat echocardiogram- pending Aspirin and statin Permissive hypertension for [address] Tono tillman for substance abuse PT OT-->SNF Insulin basal bolus for diabetes Encourage medication compliance Check hemoglobin A1c--> 12.1 I spent 40 minutes on this encounter. Greater than 50% spent on counseling and care coordination. Plan of care discussed with RN. I spent an additional 35 minutes in reviewing old records. 15 minutes spent in discussing advanced directive with patient. Subjective Date patient seen: Dec 19, 2019 ROS Limited/Unobtainable: No Constitutional: Denies: no symptoms, chills, diaphoresis, fever, malaise, weakness, other HEENT: Denies: no symptoms, eye pain, blurred vision, tearing, double vision, ear pain, ear discharge, nose pain, nose congestion, throat pain, throat swelling, mouth pain, mouth swelling, other Cardiovascular: Denies: no symptoms, chest pain, edema, irregular heart rate, lightheadedness, palpitations, syncope, other Respiratory: Denies: no symptoms, cough, orthopnea, shortness of breath, SOB with excertion, SOB at rest, sputum, stridor, wheezing, other Gastrointestinal/Abdominal: Denies: no symptoms, abdomen distended, abdominal pain, black stools, tarry stools, blood in stool, constipated, diarrhea, difficulty swallowing, nausea, poor appetite, poor fluid intake, rectal bleeding , vomiting, other Genitourinary: Denies: no symptoms, burning, discharge, frequency, flank pain, hematuria, incontinence, pain, urgency, other Neurologic/Psychiatric: Reports: other - unsteady gait, double vision Endocrine: Denies: no symptoms, excessive sweating, flushing, intolerance to cold, intolerance to heat, increased hunger, increased thirst, increased urine, unexplained weight gain, unexplained weight loss, other Hematologic/Lymphatic: Denies: no symptoms, anemia, easy bleeding, easy bruising, other Allergies: Coded Allergies: No Known Allergies (Unverified , 07/16/19) Objective Last 24 Hour Vital Signs Date Time Temp Pulse Resp B/P (MAP) Pulse Ox O2 Delivery O2 Flow Rate FiO2 12/19/19 16:00 76 12/19/19 16:00 97.5 71 20 136/75 (95) 97 12/19/19 12:00 70 12/19/19 12:00 98.1 73 20 148/98 (115) 97 12/19/19 11:30 70 12/19/19 09:00 Room Air 12/19/19 08:00 98.1 76 20 130/88 (102) 96 12/19/19 08:00 71 12/19/19 04:00 97.5 74 18 150/99 (116) 96 12/19/19 04:00 73 12/19/19 00:00 97.4 87 16 144/73 (96) 98 12/19/19 00:00 71 Intake and Output 12/18/19 12/19/19 19:00 07:00 # Voids 4 3 Laboratory Tests 12/19/19 06:03: Hemoglobin A1c 12.1H, Total Creatine Kinase 40 Height (Feet): 5 Height (Inches): 7.00 Weight (Pounds): 207 Objective general - overweight female, distracted in conversation and has difficulty maintaining eye contact cv- rrr,no m,r,g respiratory- ctab no w,r,c, abd- soft, nondistended, no masses ext- normal muscle tone neuro- CN II-XII intact, 4/5 muscle strength in right hand lacing presser and flex/ext, left side 5/5, bl le 5/5, gross sensation intact, dysmetric nose to finger exam , negative pronator drift Abimael Mak M.D. Dec 19, 2019 22:13
[2019-12-19] MEDS: Atorvastatin 80mg tab ORAL SCH (23:04)
[2019-12-20] VITALS: BP 140/86
[2019-12-20 04:00] VITALS: BP 141/86
[2019-12-20] MEDS: Levemir Flexpen SUBQ SCH ×2 (06:29→17:56)
[2019-12-20] MEDS: NovoLOG Insulin Flexpen SUBQ SCH ×4 (06:31→21:32)
--- NOTE | 2019-12-20 07:30 | NUR ---
HAND-OFF: Report given to Jose Enrique/RN, patient is in stable condition. Endorsed plan of care.
[2019-12-20 08:40] LABS: BASOPHILS % (AUTO) 0.7 % (0.0-2.0); EOSINOPHILS % (AUTO) 1.7 % (0.0-3.0); HEMATOCRIT 42.8 % (37.0-47.0); LYMPHOCYTES % (AUTO) 44.9 % (20.0-45.0); MEAN CORPUSCULAR VOLUME 87 FL (80-99); MONOCYTES % (AUTO) 8.9 % (1.0-10.0); NEUTROPHILS % (AUTO) 43.8 % (45.0-75.0); PLATELET COUNT 244 K/UL (150-450); RED BLOOD COUNT 4.91 M/UL (4.20-5.40); RED CELL DISTRIBUTION WIDTH 11.2 % (11.6-14.8); WHITE BLOOD COUNT 6.1 K/UL (4.8-10.8)
[2019-12-20] MEDS: Aspirin Baby 81mg NG SCH (08:53)
[2019-12-20] MEDS: Enoxaparin 40mg Inj SUBQ SCH (08:54)
[2019-12-20 09:00] VITALS: BP 145/101
[2019-12-20 09:05] LABS: ANION GAP 8 mmol/L (5-15); BLOOD UREA NITROGEN 15 mg/dL (7-18); CALCIUM 9.1 MG/DL (8.5-10.1); CARBON DIOXIDE 30 MMOL/L (21-32); CHLORIDE 102 MMOL/L (98-107); CREATININE 0.7 MG/DL (0.55-1.30); SODIUM 140 MMOL/L (136-145)
[2019-12-20 12:00] VITALS: BP 145/99
[2019-12-20] MEDS ORDERED: Omnipaque 350 100ml vial INJ PRN ×2 (13:30)
[2019-12-20 16:00] VITALS: BP 130/80
--- NOTE | 2019-12-20 16:35 | NUR ---
NURSE NOTES: Left a message to Dr. Lan regarding BP medications. Waiting for a call back.
[2019-12-20 20:00] VITALS: BP 140/85
--- NOTE | 2019-12-20 20:20 | General Progress Note ---
Assessment/Plan Status: stable Assessment/Plan: 59-year-old female with past medical history of high blood pressure, diabetes, previous stroke, substance abuse including PCP, noncompliance with medications presented with diplopia. Found to have left cerebellar subacute/acute infarct on brain MRI. 1. Cerebellar infarct 2. Uncontrolled hypertension 3. Uncontrolled diabetes with hyperglycemia 4. Hyperlipidemia 5. History of substance abuse including current use of PCP. Plan telemetry. Per ED out of window for TPA EKG and troponins Repeat echocardiogram- pending Aspirin and statin Permissive hypertension for 48 hours-> ok now for bp control, increase norvasc and hydralazine prn for hypertension Neurology consult. Dr. Tono tillman for substance abuse PT OT-->SNF Insulin basal bolus for diabetes Encourage medication compliance Check hemoglobin A1c--> 12.1 I spent 40 minutes on this encounter. Greater than 50% spent on counseling and care coordination. Plan of care discussed with RN. I spent an additional 35 minutes in reviewing old records. 15 minutes spent in discussing advanced directive with patient. Subjective Date patient seen: Dec 20, 2019 Allergies: Coded Allergies: No Known Allergies (Unverified , 07/16/19) Subjective Short ROS Objective Last 24 Hour Vital Signs Date Time Temp Pulse Resp B/P (MAP) Pulse Ox O2 Delivery O2 Flow Rate FiO2 12/20/19 16:00 98.2 72 20 130/80 (97) 97 12/20/19 16:00 74 12/20/19 12:00 98.1 71 20 145/99 (114) 97 12/20/19 12:00 72 12/20/19 09:00 Room Air 12/20/19 09:00 97.7 72 20 145/101 (116) 95 12/20/19 08:00 74 12/20/19 04:00 69 12/20/19 04:00 97.6 69 16 141/86 (104) 97 12/20/19 00:00 97.4 71 16 140/86 (104) 95 12/20/19 00:00 71 12/19/19 21:00 Room Air Intake and Output 12/19/19 12/20/19 19:00 07:00 Intake Total 800 ml Balance 800 ml Intake Oral 800 ml # Voids 3 2 Laboratory Tests 12/20/19 07:20: White Blood Count 6.1, Red Blood Count 4.91, Hemoglobin 15.0, Hematocrit 42.8, Mean Corpuscular Volume 87, Mean Corpuscular Hemoglobin 30.5, Mean Corpuscular Hemoglobin Concent 34.9, Red Cell Distribution Width 11.2L, Platelet Count 244, Mean Platelet Volume 7.7, Neutrophils (%) (Auto) 43.8L, Lymphocytes (%) (Auto) 44.9, Monocytes (%) (Auto) 8.9, Eosinophils (%) (Auto) 1.7, Basophils (%) (Auto ) 0.7, Sodium Level 140, Potassium Level 3.0L, Chloride Level 102, Carbon Dioxide Level 30, Anion Gap 8, Blood Urea Nitrogen 15, Creatinine 0.7, Estimat Glomerular Filtration Rate > 60, Glucose Level 217H, Calcium Level 9.1, Vitamin B12 Level 570, Methylmalonic Acid [Pending] Height (Feet): 5 Height (Inches): 7.00 Weight (Pounds): 207 Objective GENERAL: No acute distress, appears comfortable, alert HEENT: NCAT, non-icteric eyes, pupils PERRLA Neck: No cervical lymphadenopathy, trachea midline CV: Regular rate and rhythm, no murmurs rubs or gallops RESP: Clear to auscultation bilaterally, no wheezes/rhonchi/crackles ABD: soft, non-distended, no TTP EXT: Normal muscle tone, +5/5 muscle strength NEURO: No obvious deficits, alert and oriented x3 Sonya Lan DO Dec 20, 2019 20:20
[2019-12-20] MEDS: Atorvastatin 80mg tab ORAL SCH (21:30)
--- NOTE | 2019-12-20 22:30 | Progress Note ---
DATE: 12/20/2019 SUBJECTIVE: The patient is quite hungry. There is no headache, seizures, blackouts, still walking at this time. Her MRI scan of the brain confirms two new strokes in the left cerebellar hemisphere. They are subacute. There is no nausea or vomiting. PHYSICAL EXAMINATION: VITAL SIGNS: Blood pressure is 145/101, respiratory rate is 20, temperature is 97.7 degrees, pulse is 72 and regular. MENTAL STATUS: Her mental status is unchanged. She is alert and awake. Answers questions correctly. Language function and speech is fluent without paraphasic errors. CRANIAL NERVE EXAMINATION: Cranial Nerves III, IV and : Extraocular motility is full with no complaints of diplopia. Cranial Nerve V: Facial and corneal sensation is intact to fine touch. CRANIAL NERVE VII: Facial strength is 5/5. CRANIAL NERVE VIII: Auditory acuity is grossly intact. CRANIAL NERVE XI AND XII: Normal. MUSCLE EXAMINATION: Muscle bulk and tone are normal. Strength 5/5 proximally and distally. Reflexes are trace in the upper extremities, 0 at the knees and ankles. Coordination, [id number], [id number] testing are intact. IMPRESSION: The patient has relatively two new strokes confirmed on the MRI The previous CT angiogram of the brain and neck, probably normal arteries. Doubt cardiac embolic strokes. The patient will be placed on aspirin 325 mg and Plavix 75 mg. B12 and methylmalonic acid level will be obtained. PLAN: As above. Mario Sandoval MD DR: MIGUEL A JOB#: [id number] CC: RIO
[2019-12-21] VITALS: BP 136/75
[2019-12-21 04:12] VITALS: BP 144/85
[2019-12-21] MEDS: Levemir Flexpen SUBQ SCH ×2 (06:58→17:04)
[2019-12-21] MEDS: NovoLOG Insulin Flexpen SUBQ SCH ×4 (06:59→22:06)
--- NOTE | 2019-12-21 07:15 | NUR ---
NURSE NOTES:Handoff received from DAVID Samuels. Patient received awake and alert, resting in bed, no acute signs of distress noted. Patient has IV site clean dry and intact, saline locked but no longer flushing, will remove IV. Bed in the low and locked position with call light within reach, will continue to monitor.
--- NOTE | 2019-12-21 07:40 | NUR ---
HAND-OFF: Report given to DAVID Meza, patient in stable condition, plan of care endorsed.
[2019-12-21 08:00] VITALS: BP 151/92
[2019-12-21] MEDS: Enoxaparin 40mg Inj SUBQ SCH (10:03)
[2019-12-21 12:00] VITALS: BP 153/53
[2019-12-21 16:00] VITALS: BP 148/89
--- NOTE | 2019-12-21 19:13 | NUR ---
HAND-OFF: Report given to DAVID Howard.
[2019-12-21 20:00] VITALS: BP 154/102
[2019-12-21] MEDS: Atorvastatin 80mg tab ORAL SCH (22:05)
--- NOTE | 2019-12-21 22:22 | General Progress Note ---
Assessment/Plan Status: stable Assessment/Plan: 59-year-old female with past medical history of high blood pressure, diabetes, previous stroke, substance abuse including PCP, noncompliance with medications presented with diplopia. Found to have left cerebellar subacute/acute infarct on brain MRI. 1. Cerebellar infarct 2. Uncontrolled hypertension 3. Uncontrolled diabetes with hyperglycemia 4. Hyperlipidemia 5. History of substance abuse including current use of PCP. Plan telemetry. Per ED out of window for TPA EKG and troponins Repeat echocardiogram- pending Aspirin and statin Permissive hypertension for 48 hours-> ok now for bp control, increase norvasc and hydralazine prn for hypertension Neurology consult. Dr. Tono tillman for substance abuse PT OT-->SNF Insulin basal bolus for diabetes Encourage medication compliance Check hemoglobin A1c--> 12.1 I spent 40 minutes on this encounter. Greater than 50% spent on counseling and care coordination. Plan of care discussed with RN. I spent an additional 35 minutes in reviewing old records. 15 minutes spent in discussing advanced directive with patient. Subjective Allergies: Coded Allergies: No Known Allergies (Unverified , 07/16/19) Subjective NAEON VSS no changes in neurologic status Objective Last 24 Hour Vital Signs Date Time Temp Pulse Resp B/P (MAP) Pulse Ox O2 Delivery O2 Flow Rate FiO2 12/21/19 16:00 97.9 73 18 148/89 (108) 100 12/21/19 16:00 79 12/21/19 12:00 74 12/21/19 12:00 98.4 74 18 153/53 (86) 96 12/21/19 10:00 66 151/92 12/21/19 09:00 Room Air 12/21/19 08:00 68 12/21/19 08:00 97.9 66 16 151/92 (111) 97 12/21/19 04:12 97.6 69 20 144/85 (104) 96 12/21/19 04:00 72 12/21/19 00:00 98.7 69 19 136/75 (95) 96 12/21/19 00:00 75 Intake and Output 12/20/19 12/21/19 19:00 07:00 Intake Total 1200 ml Balance 1200 ml Intake Oral 1200 ml # Voids 4 2 Laboratory Tests 12/21/19 06:40: Potassium Level 3.7 Height (Feet): 5 Height (Inches): 7.00 Weight (Pounds): 207 Objective GENERAL: No acute distress, appears comfortable, alert HEENT: NCAT, non-icteric eyes, pupils PERRLA Neck: No cervical lymphadenopathy, trachea midline CV: Regular rate and rhythm, no murmurs rubs or gallops RESP: Clear to auscultation bilaterally, no wheezes/rhonchi/crackles ABD: soft, non-distended, no TTP EXT: Normal muscle tone, +5/5 muscle strength NEURO: No obvious deficits, alert and oriented x3 Sonya Lan DO Dec 21, 2019 22:22
--- NOTE | 2019-12-21 23:15 | NUR ---
NURSE NOTES: Received patient from DAVID Meza, patient in stable condition, sleeping, AOx4, IV site on left A/c , asymptomatic, intact, bed low &locked , side rails upx3, call light within reach , will continue to monitor and reassess
[2019-12-22] VITALS: BP 156/101
[2019-12-22 04:00] VITALS: BP 137/85
[2019-12-22] MEDS: Levemir Flexpen SUBQ SCH ×2 (06:35→17:12)
[2019-12-22] MEDS: NovoLOG Insulin Flexpen SUBQ SCH ×4 (06:36→20:52)
--- NOTE | 2019-12-22 07:19 | NUR ---
HAND-OFF: Report given to DAVID Ames, patient in stable condition, plan of care endorsed.
--- NOTE | 2019-12-22 07:30 | NUR ---
NURSE NOTES: Received report from DAVID Samuels. The patient is sleeping on the bed without acute distress or shortness of breath. The patient's bed in the lowest position, call light in reach, and fall and aspiration precaution reinforced. IV site intact and patent. The patient denies one side weakness or drooping at this time. Per Dr. Sandoval, the patient will be on Aspirin 325mg and Plavix 75mg for acute/subacute infarct. Will continue plan of care.
[2019-12-22 08:00] VITALS: BP 137/90
[2019-12-22] MEDS: Enoxaparin 40mg Inj SUBQ SCH (09:41)
--- NOTE | 2019-12-22 10:30 | NUR ---
NURSE NOTES: The patient is stable without acute distress or shortness of breath. Dr. Mak ordered for case management consult for SNF placement. Will continue plan of care.
--- NOTE | 2019-12-22 10:59 | Discharge Summary ---
Discharge Summary Hospital Course Date of Admission Dec 17, 2019 at 19:56 Date of Discharge 12/22/19 Admitting Diagnosis cva, vertigo. HPI Rowena Shirley is a 59 year old female who was admitted on Dec 17, 2019 at 19: 56 for Cerebral Vascular Accident/Vertigo Consultations Neurology Hospital Course [id number] female with past medical history of high blood pressure, diabetes, previous stroke, substance abuse including PCP, noncompliance with medications presented with diplopia. Found to have left cerebellar subacute/acute infarct on brain MRI. 1. Cerebellar infarct- acute 2. Uncontrolled hypertension 3. Uncontrolled diabetes with hyperglycemia 4. Hyperlipidemia 5. History of substance abuse including current use of PCP. 6. Diastolic dysfunction Plan telemetry. Per ED out of window for TPA EKG and troponins checked Repeat echocardiogram- mild diastolic dysfunction Aspirin, plavix and statin Permissive hypertension for 48 hours, now on amlodipine 10 mg daily and lisinopril [address] Tono tillman for substance abuse PT OT-->SNF vs Acute rehab Insulin basal bolus for diabetes, increase as necessary Encourage medication compliance Check hemoglobin A1c--> 12.1 SW to assist with placement. Medically stable. today seen and exmained. No distress, ambulating to the bathroom independently. I spent 40 minutes on this encounter. Greater than 50% spent on counseling and care coordination. Plan of care discussed with RN. Discharge Medications New Medications: Aspirin* (Aspirin*) 325 Mg Tablet 325 MG ORAL DAILY for 10 Days, #10 TAB Atorvastatin (Lipitor) 80 Mg Tablet 80 MG ORAL BEDTIME for 10 Days, #10 TAB Clopidogrel Bisulfate* (Plavix*) 75 Mg Tablet 75 MG ORAL DAILY for 10 Days, #10 TAB Insulin Aspart (Novolog Flexpen) 100 Unit/1 Ml Insuln.pen 0 UNITS SUBQ BEFORE MEALS AND HS for 10 Days, #1 EA Insulin Detemir (Levemir Flexpen) 100 Unit/1 Ml Insuln.pen 20 UNITS SUBQ NOVOLOGBS for 10 Days, #1 EA Lisinopril* (Zestril*) 10 Mg Tablet 10 MG ORAL DAILY for 10 Days, #10 TAB Changed Medications: Hydrochlorothiazide* (Hydrochlorothiazide*) 12.5 Mg Tablet 12.5 MG ORAL DAILY for HTN for 10 Days, #10 TAB (Changed from: Unknown Dose ) Continued Medications: Amlodipine Besylate (Norvasc) 10 Mg Tablet 10 MG ORAL DAILY for 10 Days, #10 TAB (This prescription has been renewed) Discontinued Medications: Aspirin* (Aspir 81*) 81 Mg Tablet.dr 81 MG ORAL DAILY, #15 TAB 1 Refill Discharge Condition Upon Discharge: stable Discharge Disposition Patient was discharged to home with self care Discharge Diagnoses: (1) Acute CVA (cerebrovascular accident) (2) Dysarthria due to acute cerebellar cerebrovascular accident (CVA) (3) Grade I diastolic dysfunction (4) HTN (hypertension) (5) Substance abuse (6) Diplopia (7) PCP (phencyclidine) abuse (8) Uncontrolled diabetes mellitus (9) Hyperglycemia Abimael Mak M.D. Dec 22, 2019 10:59
--- NOTE | 2019-12-22 11:00 | NUR ---
NURSE NOTES: Dr. Mak ordered the patient to be discharged to SNF or home. Informed the patient regarding the discharge. The patient is refusing to leave hospital as the patient feels weak. Notified to Dr. Mak and Dorene, the caseworker intake. Will continue plan of care until clarification made.
[2019-12-22] MEDS ORDERED: LEVEMIR FL100 UNIT/1 SUBQ ×3 (11:13→11:17)
[2019-12-22] MEDS ORDERED: NORVASC10 MG ORAL (11:13)
[2019-12-22] MEDS ORDERED: PLAVIX75 MG ORAL (11:13)
[2019-12-22] MEDS ORDERED: LIPITOR80 MG ORAL (11:13)
[2019-12-22] MEDS ORDERED: ASPIRIN325 MG ORAL (11:13)
[2019-12-22] MEDS ORDERED: NOVOLOG100 UNITS1 SUBQ (11:13)
[2019-12-22] MEDS ORDERED: HYDROCHLOROTH12.5 MG ORAL (11:13)
--- NOTE | 2019-12-22 11:51 | NUR ---
RD ASSESSMENT & RECOMMENDATIONS SEE CARE ACTIVITY FOR COMPLETE ASSESSMENT DAILY ESTIMATED NEEDS: Needs based on Cardiac, DM 69.5kg adj 25-30 kcals/kg [id number] total kcals 1-1.5 g protein/kg 70-104 g total protein 25-30 mL/kg 0537-8887 total fluid mLs NUTRITION DIAGNOSIS: 1) Decreased fat and sodium needs r/t cardiac status as evidenced by s/p acute CVA, elev BP, elev lipid panel: triglycerides 255, Chol 272, LDL 195. 2) Altered nutrition related lab values r/t DM as evidenced by A1C 12.1, Bg in the 200's, Uglu 4+ on adm. CURRENT DIET: CCHO low PO DIET RECOMMENDATIONS: CARDIAC/ CCHO Low w/ high pro snack in b/w meals ADDITIONAL RECOMMENDATIONS: 1) Obtain a standing weight as able 2) B-complex daily 3) Rec to increase soluble fiber intake 4) Diet edu as able
[2019-12-22 12:00] VITALS: BP 142/95
[2019-12-22 16:00] VITALS: BP 135/92
--- NOTE | 2019-12-22 16:00 | NUR ---
NURSE NOTES: The patient is stable without acute distress or shortness of breath. Will continue plan of care.
--- NOTE | 2019-12-22 16:09 | Diagnostic Imaging Report ---
Indication: Focal weakness. Acute cva Technique: Continuous helical transaxial imaging of the head was obtained during rapid intravenous contrast administration. Arterial phase of enhancement obtained. Coronal 2-D reformats were also obtained and maximum intensity projection images in multiple planes. 3-D reconstructions were obtained. Study obtained in a Siemens sensation [address] Automatic Exposure Control was utilized. Total Dose length Product (DLP): [address] Dose Index Volume (CTDIvol): 285 mGy Comparison: None Findings: The proximal portions of the anterior and middle cerebral arteries appear patent without high-grade stenosis or occlusion. Mallory of James is intact. There is no anterior communicating artery definitely identified. There is no significant stenosis of the intracranial portions of the internal carotid arteries. Mild mural calcium noted within the supraclinoid ICA bilaterally. The A1 segments and M1 segments appear normal. There is some attenuation of the posttrifurcation vessels i.e. mostly M3 M4 segments and distal branches near the periphery of the brain bilaterally. This may be due to chronic disease. In the posterior circulation, the left vertebral artery is dominant. The basilar artery is tortuous but widely patent. There is a focal stenosis demonstrated in the proximal part of the right CASING GRADER or P1 segment. This may be significant. 3-D Reconstructions were obtained but are suboptimal. Remainder of the CASING GRADER appears unremarkable. IMPRESSION: Suggestion of a moderate stenosis involving right P1 segment of the CASING GRADER. Suggestion of atherosclerotic disease demonstrated within distal branches of the MCA. Technically limited examination. 3-D reconstructions are not optimal
--- NOTE | 2019-12-22 16:13 | Diagnostic Imaging Report ---
Indication: CVA and focal weakness. Technique: Continuous helical transaxial imaging of the neck was obtained from the aortic arch to the skull base during rapid intravenous contrast administration. Arterial phase of enhancement obtained. Coronal 2-D reformats were also obtained and maximum intensity projection images in multiple planes. Study obtained in a Siemens sensation [address] Automatic Exposure Control was utilized. Total Dose length Product (DLP): Refer to CTA head mGycm CT Dose Index Volume (CTDIvol): Refer to CTA head mGy Comparison: None Findings: The common carotid and internal carotid arteries below the skull base appear widely patent. No focal stenosis is identified. There is minimal calcification involving the proximal right ICA. Both vertebral arteries are widely patent below the skull base. The left vertebral artery is dominant. There is a bovine arch with common origins of the innominate artery and left common carotid artery. The thyroid is heterogeneous with suggestion of multiple tiny nodules. This may be evaluated with ultrasound as needed. The lung apices are clear. IMPRESSION: No evidence of extracranial carotid or vertebral artery stenosis. Heterogeneous thyroid gland. Sonographic correlation may be helpful. The CT scanner at [facility] is accredited by the [employer] and the scans are performed using dose optimization techniques as appropriate to a performed exam including Automatic Exposure control.
--- NOTE | 2019-12-22 18:00 | NUR ---
NURSE NOTES: The charge nurse communicated with the patient regarding the patient's discharge. The patient refused to go boarding care, SNF, or friend's home at this time. The patient is also refusing to leave hospital. Notified to Dr. Mak. Will continue plan of care until clarification made.
--- NOTE | 2019-12-22 19:30 | NUR ---
HAND-OFF: Report given to DAVID Quispe. The patient is resting on the bed without acute distress or shortness of breath. The patient's bed in the lowest position, call light in reach, and fall and aspiration precaution reinforced. IV site intact and patent. Endorsed plan of care.
--- NOTE | 2019-12-22 19:32 | NUR ---
NURSE NOTES: Received pt from DAVID Ames. Pt is resting in bed in no acute distress. Iv site intact and patent. Bed locked in lowest position, bed alarm on, call light within reach. Will continue with plan of care.
[2019-12-22 20:00] VITALS: BP 140/81
[2019-12-22] MEDS: Atorvastatin 80mg tab ORAL SCH (20:52)
[2019-12-23] VITALS: BP 141/78
[2019-12-23 04:00] VITALS: BP 138/77
[2019-12-23] MEDS: Levemir Flexpen SUBQ SCH ×2 (06:33→17:11)
[2019-12-23] MEDS: NovoLOG Insulin Flexpen SUBQ SCH ×4 (06:34→21:00)
--- NOTE | 2019-12-23 07:15 | NUR ---
NURSE NOTES: Received report from DAVID Quispe. The patient is resting on the bed without acute distress or shortness of breath. The patient's bed in the lowest position, call light in reach, and fall and aspiration precaution reinforced. IV site intact and patent. Per night nurse, the patient still refused to leave the hospital. Will let Dr. Mak and porter sample case know about the case. Will continue plan of care.
--- NOTE | 2019-12-23 07:15 | NUR ---
report given to DAVID Ames. Endorsed plan of care
[2019-12-23 08:00] VITALS: BP 139/96
[2019-12-23] MEDS: Enoxaparin 40mg Inj SUBQ SCH (09:11)
--- NOTE | 2019-12-23 10:00 | NUR ---
NURSE NOTES: The patient is stable without acute distress or shortness of breath. Will continue plan of care.
[2019-12-23 12:00] VITALS: BP 142/96
--- NOTE | 2019-12-23 12:19 | NUR ---
*-* INSURANCE *-* COMPLETE CLINICALS HAVE BEEN FAXED TO: NATALIE MOSQUEDA: [employer] Addendum: 12/23/19 at 1433 by NANCY PICHARDO CM REF# [id number]
--- NOTE | 2019-12-23 13:58 | General Progress Note ---
Assessment/Plan Status: stable Assessment/Plan: 59-year-old female with past medical history of high blood pressure, diabetes, previous stroke, substance abuse including PCP, noncompliance with medications presented with diplopia. Found to have left cerebellar subacute/acute infarct on brain MRI. 1. Cerebellar infarct- acute 2. Uncontrolled hypertension 3. Uncontrolled diabetes with hyperglycemia 4. Hyperlipidemia 5. History of substance abuse including current use of PCP. 6. Diastolic dysfunction Plan telemetry. Per ED out of window for TPA EKG and troponins checked Repeat echocardiogram- mild diastolic dysfunction Aspirin, plavix and statin Permissive hypertension for 48 hours, now on amlodipine 10 mg daily Neurology consult. Dr. Tono tillman for substance abuse PT OT-->SNF vs Acute rehab Insulin basal bolus for diabetes, increase as necessary Encourage medication compliance Check hemoglobin A1c--> 12.1 I spent 40 minutes on this encounter. Greater than 50% spent on counseling and care coordination. Plan of care discussed with RN. Subjective Date patient seen: Dec 23, 2019 ROS Limited/Unobtainable: No Constitutional: Reports: weakness HEENT: Reports: double vision Neurologic/Psychiatric: Reports: other - gasit problem, problems with speech Allergies: Coded Allergies: No Known Allergies (Unverified , 07/16/19) Subjective no acute events, waiting for placement Objective Last 24 Hour Vital Signs Date Time Temp Pulse Resp B/P (MAP) Pulse Ox O2 Delivery O2 Flow Rate FiO2 12/23/19 09:09 79 139/96 12/23/19 09:00 Room Air 12/23/19 08:00 98.1 79 18 139/96 (110) 97 12/23/19 08:00 79 12/23/19 04:00 69 12/23/19 04:00 98.2 69 18 138/77 (97) 96 12/23/19 00:00 97.2 72 19 141/78 (99) 97 12/23/19 00:00 72 12/22/19 21:00 Room Air 12/22/19 20:00 98.2 81 18 140/81 (100) 96 12/22/19 20:00 81 12/22/19 16:00 74 12/22/19 16:00 98.1 80 18 135/92 (106) 98 Intake and Output 12/22/19 12/23/19 19:00 07:00 Intake Total 490 ml Balance 490 ml Intake Oral 490 ml # Voids 4 4 Height (Feet): 5 Height (Inches): 7.00 Weight (Pounds): 207 Objective general - overweight female, distracted in conversation and has difficulty maintaining eye contact cv- rrr,no m,r,g respiratory- ctab no w,r,c, abd- soft, nondistended, no masses ext- normal muscle tone neuro- CN II-XII intact, 4/5 muscle strength in right hand boat wrapper and flex/ext, left side 5/5, bl le 5/5, gross sensation intact, dysmetric nose to finger exam , negative pronator drift Abimael Mak M.D. Dec 23, 2019 13:58
--- NOTE | 2019-12-23 14:00 | NUR ---
NURSE NOTES: The patient is stable without acute distress or shortness of breath. Per patient, she will inform the discharge order to family member so that she can find the ride and place to go. Will continue to monitor the patient.
--- NOTE | 2019-12-23 14:20 | NUR ---
*-*DISCHARGE PLANNING*-* PATIENT HAS BEEN REFERRED TO: [facility]: P: [phone] F: [phone] STILL PENDING [facility]: P: [phone] F: [phone] STILL PENDING FACILITIES DECLINED, FOR RECREATIONAL USE: [facility]: P: F: DECLINED FOR RECREATIONAL USE [facility]: P: [phone] F: [phone] DECLINED FOR RECREATIONAL USE [facility]: P: [phone] F: [phone] DECLINED FOR RECREATIONAL USE [facility]: P: [phone] F: [phone] DECLINED FOR RECREATIONAL USE [facility]: P: [phone] F: [phone] DECLINED FOR RECREATIONAL USE [facility]: P: [phone] F: [phone] DECLINED FOR RECREATIONAL USE [facility]: P: [phone] F: [phone] DECLINED FOR RECREATIONAL USE [facility]: P: [phone] F: [phone] DECLINED FOR RECREATIONAL USE [facility]: P: [phone] F: [phone] S/W [facility] DECLINED FOR RECREATIONAL USE Addendum: 12/23/19 at 1611 by KARMEN ANDERSON LVN LVN ALSO REFERRED TO [facility] ~ THEY ARE WORKING ON OBTAINING AUTHORIZATION
[2019-12-23 16:00] VITALS: BP 129/76
--- NOTE | 2019-12-23 16:05 | NUR ---
CASE MANAGEMENT:REVIEW 12/23/19 SI: ACUTE/SUB ACUTE CVA 98.3 69 18 142/96 98% ON RA IS: LEVEMIR SQ ASA PO QD PLAVIX PO QD NORVASC PO QD LOVENOX SQ QD : TELEMETRY STATUS PLAN: SEEKING SNF PLACEMENT FOR PATIENT REFERRED TO [facility]ULTIPLE SNF'S AND [facility]SO [facility]
--- NOTE | 2019-12-23 17:00 | NUR ---
NURSE NOTES: The patient is stable without acute distress or shortness of breath. Will continue plan of care.
--- NOTE | 2019-12-23 19:18 | NUR ---
NURSE NOTES: Received pt from DAVID Ames. Pt is awake and resting in bed in no acute distress. IV site intact. Bryan catheter intact and draining. HOB elevated. Bed locked in lowest position, bed alarm in reach, bed alarm on. Will continue with plan of care.
[2019-12-23 20:00] VITALS: BP 133/88
[2019-12-23] MEDS: Atorvastatin 80mg tab ORAL SCH (21:00)
[2019-12-24] VITALS: BP 134/82
[2019-12-24 04:00] VITALS: BP 135/82
[2019-12-24] MEDS: Levemir Flexpen SUBQ SCH ×2 (06:33→17:14)
[2019-12-24] MEDS: NovoLOG Insulin Flexpen SUBQ SCH ×4 (06:33→21:00)
--- NOTE | 2019-12-24 07:09 | NUR ---
HAND-OFF: Report given to Aneudy Ames. Plan of care endorsed.
--- NOTE | 2019-12-24 07:15 | NUR ---
NURSE NOTES: Received repot from DAVID Quispe. The patient is sleeping on the bed without acute distress or shortness of breath. The patient's bed in the lowest position, call light in reach, and fall and aspiration precaution reinforced. IV site intact and patent. Will continue plan of care. Will ask whether the patient was able to contact with family member for placement and transportation or not.
[2019-12-24 08:00] VITALS: BP 137/88
--- NOTE | 2019-12-24 08:47 | General Progress Note ---
Assessment/Plan Status: stable Assessment/Plan: 59-year-old female with past medical history of high blood pressure, diabetes, previous stroke, substance abuse including PCP, noncompliance with medications presented with diplopia. Found to have left cerebellar subacute/acute infarct on brain MRI. 1. Cerebellar infarct- acute 2. Uncontrolled hypertension 3. Uncontrolled diabetes with hyperglycemia 4. Hyperlipidemia 5. History of substance abuse including current use of PCP. 6. Diastolic dysfunction Plan telemetry. Per ED out of window for TPA EKG and troponins checked Repeat echocardiogram- mild diastolic dysfunction Aspirin, plavix and statin Permissive hypertension for 48 hours, now on amlodipine 10 mg daily Neurology consult. Dr. Tono tillman for substance abuse PT OT-->SNF vs Acute rehab Insulin basal bolus for diabetes, increase as necessary Encourage medication compliance Check hemoglobin A1c--> 12.1 I spent 40 minutes on this encounter. Greater than 50% spent on counseling and care coordination. Plan of care discussed with RN. Subjective Date patient seen: Dec 24, 2019 Constitutional: Reports: weakness HEENT: Reports: double vision Cardiovascular: Denies: no symptoms, chest pain, edema, irregular heart rate, lightheadedness, palpitations, syncope, other Respiratory: Denies: no symptoms, cough, orthopnea, shortness of breath, SOB with excertion, SOB at rest, sputum, stridor, wheezing, other Gastrointestinal/Abdominal: Denies: no symptoms, abdomen distended, abdominal pain, black stools, tarry stools, blood in stool, constipated, diarrhea, difficulty swallowing, nausea, poor appetite, poor fluid intake, rectal bleeding , vomiting, other Genitourinary: Denies: no symptoms, burning, discharge, frequency, flank pain, hematuria, incontinence, pain, urgency, other Neurologic/Psychiatric: Reports: weakness Endocrine: Denies: no symptoms, excessive sweating, flushing, intolerance to cold, intolerance to heat, increased hunger, increased thirst, increased urine, unexplained weight gain, unexplained weight loss, other Hematologic/Lymphatic: Denies: no symptoms, anemia, easy bleeding, easy bruising, other Allergies: Coded Allergies: No Known Allergies (Unverified , 07/16/19) Subjective no acute events. waiting for rehab placement Objective Last 24 Hour Vital Signs Date Time Temp Pulse Resp B/P (MAP) Pulse Ox O2 Delivery O2 Flow Rate FiO2 12/24/19 04:00 63 12/24/19 04:00 97.3 63 19 135/82 (99) 94 12/24/19 00:00 70 12/24/19 00:00 98.3 70 18 134/82 (99) 96 12/23/19 21:00 Room Air 12/23/19 20:00 73 12/23/19 20:00 98.6 73 18 133/88 (103) 95 12/23/19 16:00 98.1 75 18 129/76 (93) 98 12/23/19 16:00 77 12/23/19 12:00 73 12/23/19 12:00 98.3 69 18 142/96 (111) 98 12/23/19 09:09 79 139/96 12/23/19 09:00 Room Air Intake and Output 12/23/19 12/24/19 18:59 06:59 Intake Total 500 ml 450 ml Balance 500 ml 450 ml Intake Oral 500 ml 250 ml Other 200 ml # Voids 3 3 Height (Feet): 5 Height (Inches): 7.00 Weight (Pounds): 206 Objective general - overweight female, distracted in conversation and has difficulty maintaining eye contact cv- rrr,no m,r,g respiratory- ctab no w,r,c, abd- soft, nondistended, no masses ext- normal muscle tone neuro- CN II-XII intact, 4/5 muscle strength in right hand shank piece tacker and flex/ext, left side 5/5, bl le 5/5, gross sensation intact, dysmetric nose to finger exam , negative pronator drift Abimael Mak M.D. Dec 24, 2019 08:47
--- NOTE | 2019-12-24 08:53 | General Progress Note ---
Assessment/Plan Problem List: (1) Grade I diastolic dysfunction ICD Codes: I51.9 - Heart disease, unspecified SNOMED: 9418336 (2) Dysarthria due to acute cerebellar cerebrovascular accident (CVA) ICD Codes: I63.9 - Cerebral infarction, unspecified; R47.1 - Dysarthria and anarthria SNOMED: 2541291, 144145424, 498146653 (3) Uncontrolled diabetes mellitus ICD Codes: E11.65 - Type 2 diabetes mellitus with hyperglycemia SNOMED: 15969973, 184821797 (4) Hyperglycemia ICD Codes: R73.9 - Hyperglycemia, unspecified; R47.1 - Dysarthria and anarthria SNOMED: 48174836, 911765756, 214644187 (5) PCP (phencyclidine) abuse ICD Codes: F16.10 - Hallucinogen abuse, uncomplicated SNOMED: 4310133 (6) Diplopia ICD Codes: H53.2 - Diplopia SNOMED: 19454103 (7) Substance abuse ICD Codes: F19.10 - Other psychoactive substance abuse, uncomplicated SNOMED: 08549203 (8) HTN (hypertension) ICD Codes: I10 - Essential (primary) hypertension SNOMED: 41822772 Status: stable Assessment/Plan: 59-year-old female with past medical history of high blood pressure, diabetes, previous stroke, substance abuse including PCP, noncompliance with medications presented with diplopia. Found to have left cerebellar subacute/acute infarct on brain MRI. 1. Cerebellar infarct- acute 2. Uncontrolled hypertension 3. Uncontrolled diabetes with hyperglycemia 4. Hyperlipidemia 5. History of substance abuse including current use of PCP. Plan telemetry. Per ED out of window for TPA EKG and troponins checked Repeat echocardiogram- mild diastolic dysfunction Aspirin, plavix and statin Permissive hypertension for 48 hours, now on amlodipine 10 mg daily Neurology consult. Dr. Tono tillman for substance abuse PT OT-->SNF vs Acute rehab Insulin basal bolus for diabetes, increase as necessary Encourage medication compliance Check hemoglobin A1c--> 12.1 I spent 40 minutes on this encounter. Greater than 50% spent on counseling and care coordination. Plan of care discussed with RN. Subjective Date patient seen: Dec 22, 2019 ROS Limited/Unobtainable: No Neurologic/Psychiatric: Reports: other - unsteady gait Allergies: Coded Allergies: No Known Allergies (Unverified , 07/16/19) Subjective seen ambulating independently to the bathroom without assistance, patient however thinks she should go to rehab. VSS Objective Last 24 Hour Vital Signs Date Time Temp Pulse Resp B/P (MAP) Pulse Ox O2 Delivery O2 Flow Rate FiO2 12/24/19 04:00 63 12/24/19 04:00 97.3 63 19 135/82 (99) 94 12/24/19 00:00 70 12/24/19 00:00 98.3 70 18 134/82 (99) 96 12/23/19 21:00 Room Air 12/23/19 20:00 73 12/23/19 20:00 98.6 73 18 133/88 (103) 95 12/23/19 16:00 98.1 75 18 129/76 (93) 98 12/23/19 16:00 77 12/23/19 12:00 73 12/23/19 12:00 98.3 69 18 142/96 (111) 98 12/23/19 09:09 79 139/96 12/23/19 09:00 Room Air Intake and Output 12/23/19 12/24/19 19:00 07:00 Intake Total 500 ml 450 ml Balance 500 ml 450 ml Intake Oral 500 ml 250 ml Other 200 ml # Voids 3 3 Height (Feet): 5 Height (Inches): 7.00 Weight (Pounds): 206 Objective general - overweight female, distracted in conversation and has difficulty maintaining eye contact cv- rrr,no m,r,g respiratory- ctab no w,r,c, abd- soft, nondistended, no masses ext- normal muscle tone neuro- CN II-XII intact, 4/5 muscle strength in right hand geological drafter and flex/ext, left side 5/5, bl le 5/5, gross sensation intact, dysmetric nose to finger exam , negative pronator drift Abimael Mak M.D. Dec 24, 2019 08:53
[2019-12-24] MEDS: Enoxaparin 40mg Inj SUBQ SCH (09:00)
[2019-12-24] MEDS: Lisinopril 10mg tab ORAL SCH (09:06)
--- NOTE | 2019-12-24 10:00 | NUR ---
NURSE NOTES: The patient is stable without acute distress or shortness of breath. Will continue plan of care.
[2019-12-24 12:00] VITALS: BP 127/84
--- NOTE | 2019-12-24 14:00 | NUR ---
NURSE NOTES: The patient is stable without acute distress or shortness of breath. Will continue plan of care.
[2019-12-24 16:00] VITALS: BP 123/86
--- NOTE | 2019-12-24 16:01 | NUR ---
*-* DISCHARGE PLANING-*-* PATIENT WAS REFERRED TO [facility]
--- NOTE | 2019-12-24 16:08 | NUR ---
*-* DISCHARGE PLANING*-* PATIENT WAS REFERRED TO: [facility]
--- NOTE | 2019-12-24 16:21 | NUR ---
*-*DISCHARGE PLANNING*-* PATIENT IS BEING DISCHARGE TO [address] [place] [id number], WHERE SHES STAYS WITH A FRIEND S/W NURSE TO PROVIDE A WALKER AND TAXI CAB.
--- NOTE | 2019-12-24 16:30 | NUR ---
NURSE NOTES: manager user interface, Dorene, addiction social worker, and planner intern at the bedside for discussion about placement upon discharge. Multiple options provided including fdc, friend's house, and contacting family member, but the patient is still deciding and did not give clear answer yet. Will ask the confirmed placement to the patient so that taxi voucher can be provided. Will continue plan of care.
--- NOTE | 2019-12-24 16:48 | NUR ---
JOINERY MACHINIST NOTE SW was notified by Pham HERNANDEZ that pt's friend does not answer the phone, thus pt cannot go to her friend's house. SW met w/ pt and discussed dc planning. Pt states she has a house dan but she does not want to go to her friend's house if he does not answer. SW asked pt to provide a contact information of her friend. Pt declined to provide the name and contact information. SW explored possible placement options w/ pt. Pt declined to state her current income and she clearly stated she does not want independent living facilities/board and cares. SW encouraged pt to reconsider such options but pt refused. PT stated she wants to get her own place to stay with her son. SW explained the limitation of SW's placement assistance that SW cannot find her own housing. SW informed pt that SW can provide resource that assist w/ housing. Pt declined to receive such resource. SW asked if pt wants to contact her mother living in [place]. Pt declined and stated that she is not going to ask her mother for housing. Pt declined SW to contact her mother who is listed as emergency contact. Pt had a cellphone with her. Pt stated she wants to call her son who is living in [place]. SW asked if pt wants SW to contact her son but pt refused. Pt also declined to provide her son's contact information. SW encouraged pt to contact her son if she is willing to ask him for assistance w/ placement. Pt was hesitant. SW and pt explored the last option, homeless care home. SW provided the winter care home list and see if she is interested. Pt stated she is wiling to go to a homeless care home. SW explained negative ramification of unlicensed facilities and homeless shelters. Pt verbalized understanding. SW also provided a map to the closest care home in [facility] and a map w/ bus route to her friend's house in case if she changes her mind. Pt states she is ambulatory w/ walker. Pt brought her walker w/ her. Pt verbalized she is able to ambulate w/ walker at this time. Signed: 12/24/19 at 1702 by VIRGINIA DING <Co-Signature Required>
--- NOTE | 2019-12-24 17:03 | NUR ---
INDUSTRIAL GAS SERVICER SUPERVISOR NOTE ADD: Pt stated she does not pay rent at her previous residence. Signed: 12/24/19 at 1704 by VIRGINIA DING <Co-Signature Required>
--- NOTE | 2019-12-24 18:00 | NUR ---
NURSE NOTES: The patient is stable without acute distress or shortness of breath. Will continue plan of care.
--- NOTE | 2019-12-24 19:30 | NUR ---
HAND-OFF: Report given to DAVID Mcpherson. The patient is resting on the bed without acute distress or shortness of breath. The patient's bed in the lowest position, call light in reach, and fall and aspiration precaution reinforced. IV site intact and patent. Front wheel walker at the bedside for discharge DME. Endorsed plan of care.
[2019-12-24 20:00] VITALS: BP 138/88
[2019-12-24] MEDS: Atorvastatin 80mg tab ORAL SCH (20:54)
[2019-12-25 00:34] VITALS: BP 127/81
[2019-12-25 04:00] VITALS: BP 137/86
[2019-12-25] MEDS: Levemir Flexpen SUBQ SCH ×2 (06:03→18:04)
[2019-12-25] MEDS: NovoLOG Insulin Flexpen SUBQ SCH ×4 (06:04→21:43)
--- NOTE | 2019-12-25 06:48 | NUR ---
HAND-OFF: Report given to nurse MARQUEZ. FBS 202 . INSULIN GIVEN. NO distres noted. ..
[2019-12-25 08:00] VITALS: BP 134/57
[2019-12-25] MEDS: Enoxaparin 40mg Inj SUBQ SCH (10:17)
[2019-12-25] MEDS: Lisinopril 10mg tab ORAL SCH (10:18)
--- NOTE | 2019-12-25 12:03 | General Progress Note ---
Assessment/Plan Problem List: (1) Grade I diastolic dysfunction ICD Codes: I51.9 - Heart disease, unspecified SNOMED: 7596420 (2) Dysarthria due to acute cerebellar cerebrovascular accident (CVA) ICD Codes: I63.9 - Cerebral infarction, unspecified; R47.1 - Dysarthria and anarthria SNOMED: 5851781, 393303029, 675183439 (3) Uncontrolled diabetes mellitus ICD Codes: E11.65 - Type 2 diabetes mellitus with hyperglycemia SNOMED: 87304368, 789379568 (4) Hyperglycemia ICD Codes: R73.9 - Hyperglycemia, unspecified; R47.1 - Dysarthria and anarthria SNOMED: 56114619, 195446932, 022927616 (5) PCP (phencyclidine) abuse ICD Codes: F16.10 - Hallucinogen abuse, uncomplicated SNOMED: 4768821 (6) Diplopia ICD Codes: H53.2 - Diplopia SNOMED: 77562989 (7) Substance abuse ICD Codes: F19.10 - Other psychoactive substance abuse, uncomplicated SNOMED: 69984601 (8) HTN (hypertension) ICD Codes: I10 - Essential (primary) hypertension SNOMED: 44652219 Status: stable Assessment/Plan: 59-year-old female with past medical history of high blood pressure, diabetes, previous stroke, substance abuse including PCP, noncompliance with medications presented with diplopia. Found to have left cerebellar subacute/acute infarct on brain MRI. 1. Cerebellar infarct- acute 2. Uncontrolled hypertension 3. Uncontrolled diabetes with hyperglycemia 4. Hyperlipidemia 5. History of substance abuse including current use of PCP. 6. Diastolic dysfunction Plan telemetry. Per ED out of window for TPA EKG and troponins checked Repeat echocardiogram- mild diastolic dysfunction Aspirin, plavix and statin Permissive hypertension for 48 hours, now on amlodipine 10 mg daily and lisinopril [address] Tono tillman for substance abuse PT OT-->SNF vs Acute rehab Insulin basal bolus for diabetes, increase as necessary Encourage medication compliance Check hemoglobin A1c--> 12.1 SW to assist with placement. Medically stable. Can send to med/surg I spent 40 minutes on this encounter. Greater than 50% spent on counseling and care coordination. Plan of care discussed with RN. Subjective Date patient seen: Dec 25, 2019 ROS Limited/Unobtainable: No Constitutional: Denies: no symptoms, chills, diaphoresis, fever, malaise, weakness, other HEENT: Denies: no symptoms, eye pain, blurred vision, tearing, double vision, ear pain, ear discharge, nose pain, nose congestion, throat pain, throat swelling, mouth pain, mouth swelling, other Cardiovascular: Denies: no symptoms, chest pain, edema, irregular heart rate, lightheadedness, palpitations, syncope, other Respiratory: Denies: no symptoms, cough, orthopnea, shortness of breath, SOB with excertion, SOB at rest, sputum, stridor, wheezing, other Gastrointestinal/Abdominal: Denies: no symptoms, abdomen distended, abdominal pain, black stools, tarry stools, blood in stool, constipated, diarrhea, difficulty swallowing, nausea, poor appetite, poor fluid intake, rectal bleeding , vomiting, other Genitourinary: Denies: no symptoms, burning, discharge, frequency, flank pain, hematuria, incontinence, pain, urgency, other Neurologic/Psychiatric: Denies: no symptoms, anxiety, depressed, emotional problems, headache, numbness, paresthesia, pre-existing deficit, seizure, tingling, tremors, weakness, other Endocrine: Denies: no symptoms, excessive sweating, flushing, intolerance to cold, intolerance to heat, increased hunger, increased thirst, increased urine, unexplained weight gain, unexplained weight loss, other Hematologic/Lymphatic: Denies: no symptoms, anemia, easy bleeding, easy bruising, other Allergies: Coded Allergies: No Known Allergies (Unverified , 07/16/19) Subjective no acute events. Seen ambulating independently to the bathroom, no walker or cane used. waiting for placement Objective Last 24 Hour Vital Signs Date Time Temp Pulse Resp B/P (MAP) Pulse Ox O2 Delivery O2 Flow Rate FiO2 12/25/19 10:19 65 134/57 12/25/19 10:18 134/57 12/25/19 08:00 97.6 57 18 134/57 (82) 97 12/25/19 04:00 69 12/25/19 04:00 98.3 81 18 137/86 (103) 97 12/25/19 00:34 98.6 79 18 127/81 (96) 97 12/25/19 00:00 75 12/24/19 21:00 74 12/24/19 21:00 Room Air 12/24/19 21:00 Room Air 12/24/19 20:00 98.6 79 18 138/88 (105) 97 12/24/19 16:00 97.5 74 18 123/86 (98) 95 12/24/19 16:00 76 12/24/19 12:00 98.1 71 18 127/84 (98) 96 12/24/19 12:00 73 Intake and Output 12/24/19 12/25/19 18:59 06:59 Intake Total 1500 ml 240 ml Balance 1500 ml 240 ml Intake Oral 1500 ml 240 ml # Voids 5 3 Height (Feet): 5 Height (Inches): 7.00 Weight (Pounds): 206 Objective general - overweight female, distracted in conversation and has difficulty maintaining eye contact cv- rrr,no m,r,g respiratory- ctab no w,r,c, abd- soft, nondistended, no masses ext- normal muscle tone neuro- CN II-XII intact, 4/5 muscle strength in right hand printer assistant and flex/ext, left side 5/5, bl le 5/5, gross sensation intact, dysmetric nose to finger exam , negative pronator drift Abimael Mak M.D. Dec 25, 2019 12:03
[2019-12-25] MEDS ORDERED: ZESTRIL10 M1 ORAL (12:34)
[2019-12-25 16:00] VITALS: BP 133/72
--- NOTE | 2019-12-25 19:35 | NUR ---
NURSE NOTES: Received pt and report from DAVID Linton. Observed pt resting in bed with both eyes open and watching television. Pt is A/Ox4. Pt will be discharge tomorrow. IV site intact, asymptomatic, and patent. Bed is in the lowest position and locked. Call light and bedside table is within reach. No signs/symptoms of acute distress noted at this time. Will continue plan of care.
--- NOTE | 2019-12-25 19:46 | NUR ---
HAND-OFF: Report given to Isa/RN pt in stable condition.
[2019-12-25 20:00] VITALS: BP 141/87
[2019-12-25] MEDS: Atorvastatin 80mg tab ORAL SCH (21:44)
[2019-12-26] VITALS: BP 148/88
[2019-12-26 04:00] VITALS: BP 146/83
[2019-12-26] MEDS: NovoLOG Insulin Flexpen SUBQ SCH ×2 (06:07→12:16)
[2019-12-26] MEDS: Levemir Flexpen SUBQ SCH (06:08)
--- NOTE | 2019-12-26 07:37 | NUR ---
HAND-OFF: Report given to DAVID Santa. Plan of care endorsed.
--- NOTE | 2019-12-26 07:44 | NUR ---
NURSE NOTES: Received report from DAVID Moss. Pt in bed, asleep, respirations regular and unlabored, front wheel walker at bedside, home medications delivered by pharmacy and at nursing station with Charge, RN. pt to be discharged today, bed in lowest position, call light within reach.
[2019-12-26 08:00] VITALS: BP 121/89
[2019-12-26] MEDS: Lisinopril 10mg tab ORAL SCH (09:39)
[2019-12-26] MEDS: Enoxaparin 40mg Inj SUBQ SCH (09:40)
[2019-12-26 12:00] VITALS: BP 120/67
--- NOTE | 2019-12-26 14:00 | NUR ---
NURSE NOTES: Pt discharge via taxi to bus stop locations for [facility] molded goods spot picker at 1630. Pt discharged with front wheel walker, all medications in hand, IV removed, ID band removed, pt is ambulatory with assist from walker, all medications reviewed, detailed instructions provided and reviewed regarding insulin medications, DM and insulin pens and frequency of dosages, demonstrations shown to pt on insulin pin set up and use, return demonstration shown, pt discharged with all belongings, stable for discharge. Taxi voucher given to [place] Reporter communicable disease specialist.
[2019-12-27] MEDS ORDERED: RIBOFLAVIN100 MG PO (23:16)
== END 2019-12-26 14:00 | disposition home or self-care (01) | DRG 64 ==
LOC: EMR 17:35 → 2E 19:56 → EDBEDREQ 22:13
DX: I63.9 Cerebral infarction, unspecified (principal); G92 Toxic encephalopathy; E11.65 Type 2 diabetes mellitus with hyperglycemia; H53.2 Diplopia; R47.1 Dysarthria and anarthria; E78.5 Hyperlipidemia, unspecified; I10 Essential (primary) hypertension; Z86.73 Personal history of transient ischemic attack (TIA), and cerebral infarction without residual deficits; F16.10 Hallucinogen abuse, uncomplicated; Z91.14 Patient's other noncompliance with medication regimen; F19.10 Other psychoactive substance abuse, uncomplicated; B02.9 Zoster without complications; Z79.02 Long term (current) use of antithrombotics/antiplatelets; Z79.4 Long term (current) use of insulin; I51.89 Other ill-defined heart diseases
CPT/HCPCS: 36415; 70450; 70496; 70498; 70551; 80048; 80053; 80061; 80307; 81003; 82140; 82550; 82607; 82962; 83036; 83735; 83880; 83921; 84132; 84439; 84443; 84481; 84484; 85025; 85610; 85730; 93005; 93306; 93880; 96360; 96372; 99285; G0480; J1815; J7030; J8499; S5561

== ENCOUNTER 2019-12-27 21:08 | Emergency (ER) | payer MEDICAID ==
[~2019-12-27] VITALS: Ht 170.2 cm; Wt 72.6 kg
[~2019-12-27 21:08] MED LIST changes: +ASPIRIN325 MG ORAL; +HYDROCHLOROTH12.5 MG ORAL; +LIPITOR80 MG ORAL; +ZESTRIL10 M1 ORAL
--- NOTE | 2019-12-27 21:10 | NUR ---
ED Nurse Note: IV line established. Blood collected and sent to lab.
[2019-12-27 21:20] VITALS: BP 136/88
--- NOTE | 2019-12-27 21:23 | NUR ---
ED Nurse Note: ERMD at bedside.
[2019-12-27] MEDS ORDERED: Metoclopramide 10mg/2ml Inj IVP ONE (21:45)
[2019-12-27 22:09] LABS: ANION GAP 7 mmol/L (5-15); BLOOD UREA NITROGEN 21 mg/dL (7-18); CALCIUM 9.6 MG/DL (8.5-10.1); CARBON DIOXIDE 31 MMOL/L (21-32); CHLORIDE 101 MMOL/L (98-107); CREATININE 0.9 MG/DL (0.55-1.30); POTASSIUM 3.4 MMOL/L (3.5-5.1); SODIUM 139 MMOL/L (136-145)
--- NOTE | 2019-12-27 22:10 | NUR ---
ED Nurse Note: Pt was taken for CT via wc, accompanied by a tech.
[2019-12-27 22:14] LABS: ALANINE AMINOTRANSFERASE 57 U/L (12-78); ALBUMIN 3.5 G/DL (3.4-5.0); ALBUMIN/GLOBULIN RATIO 0.8 (1.0-2.7); ALKALINE PHOSPHATASE 133 U/L (46-116); ASPARTATE AMINO TRANSFERASE 22 U/L (15-37); BILIRUBIN,TOTAL 0.2 MG/DL (0.2-1.0)
--- NOTE | 2019-12-27 22:18 | NUR ---
ED Nurse Note: Pt came back from CT. Not in any distress.
[2019-12-27 22:36] LABS: BASOPHILS % (AUTO) 1.1 % (0.0-2.0); EOSINOPHILS % (AUTO) 2.2 % (0.0-3.0); HEMATOCRIT 46.5 % (37.0-47.0); HEMOGLOBIN 14.4 G/DL (12.0-16.0); LYMPHOCYTES % (AUTO) 32.9 % (20.0-45.0); MEAN CORPUSCULAR VOLUME 93 FL (80-99); MONOCYTES % (AUTO) 8.8 % (1.0-10.0); PLATELET COUNT 262 K/UL (150-450); RED BLOOD COUNT 5.02 M/UL (4.20-5.40); RED CELL DISTRIBUTION WIDTH 11.9 % (11.6-14.8); WHITE BLOOD COUNT 7.3 K/UL (4.8-10.8)
--- NOTE | 2019-12-27 22:38 | Emergency Room Report ---
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, patient was seen yesterday at [facility] and discharged additionally patient was seen today at [place] and was subsequently discharged, patient presents with generalized headache that started a day ago no aggravating or alleviating factors severity was mild, gradual in onset not sudden not worse in the recumbent position no fevers no chills no new weakness, patient states that she just needs a place to rest for a little bit, no aggravating relieving factors patient presents for evaluation Allergies: Coded Allergies: No Known Allergies (Unverified , 07/16/19) Patient History Past Medical History: see triage record Reviewed Nursing Documentation: PMH: Agreed; PSxH: Agreed Nursing Documentation-PMH Hx Cardiac Problems: Yes Hx Hypertension: Yes Hx Diabetes: Yes Hx Cancer: No Hx Gastrointestinal Problems: No Hx Neurological Problems: Yes Hx Cerebrovascular Accident: Yes Review of Systems All Other Systems: negative except mentioned in HPI Physical Exam Vital Signs Date Time Temp Pulse Resp B/P (MAP) Pulse Ox O2 Delivery O2 Flow Rate FiO2 12/27/19 21:18 97.9 73 15 136/88 (104) 97 Room Air Sp02 EP Interpretation: reviewed, normal General Appearance: well appearing, no apparent distress, alert Head: normocephalic, atraumatic Eyes: bilateral eye PERRL, bilateral eye EOMI ENT: uvula midline, moist mucus membranes Neck: supple, thyroid normal, supple/symm/no masses Respiratory: lungs clear, no respiratory distress, no retraction, no accessory muscle use Cardiovascular #1: normal peripheral pulses, regular rate, rhythm, no edema, no gallop, no murmur Gastrointestinal: non tender, soft, no guarding, no rebound Musculoskeletal: normal inspection Neurologic: alert, 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, oriented x3, cerebellar normal, normal gait, other - Cranial nerves II through XII intact, no facial droop, no dysarthria, patient tolerating her secretions, patient finger-nose intact, no pronator drift, no Romberg, residual right-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 There are no red flags of RAMIRES, not sudden in onset, not maximal in onset, no acute neurological findings, no fever with head stiffness. Low suspicion for subarachnoid hemorrhage, encephalitis, meningitis. CT scan unremarkable additionally headache improved with medication No signs or symptoms of acute stroke, neurologic exam improved from prior on chart review Disposition home with return precautions follow-up with PCP continue taking her aspirin Laboratory Tests Test 12/27/19 21:33 White Blood Count 7.3 K/UL (4.8-10.8) Red Blood Count 5.02 M/UL (4.20-5.40) Hemoglobin 14.4 G/DL (12.0-16.0) Hematocrit 46.5 % (37.0-47.0) Mean Corpuscular Volume 93 FL (80-99) Mean Corpuscular Hemoglobin 28.6 PG (27.0-31.0) Mean Corpuscular Hemoglobin Concent 30.9 G/DL (32.0-36.0) L Red Cell Distribution Width 11.9 % (11.6-14.8) Platelet Count 262 K/UL (150-450) Mean Platelet Volume 8.5 FL (6.5-10.1) Neutrophils (%) (Auto) 55.0 % (45.0-75.0) Lymphocytes (%) (Auto) 32.9 % (20.0-45.0) Monocytes (%) (Auto) 8.8 % (1.0-10.0) Eosinophils (%) (Auto) 2.2 % (0.0-3.0) Basophils (%) (Auto) 1.1 % (0.0-2.0) Sodium Level 139 MMOL/L (136-145) Potassium Level 3.4 MMOL/L (3.5-5.1) L Chloride Level 101 MMOL/L (98-107) Carbon Dioxide Level 31 MMOL/L (21-32) Anion Gap 7 mmol/L (5-15) Blood Urea Nitrogen 21 mg/dL (7-18) H Creatinine 0.9 MG/DL (0.55-1.30) Estimate Glomerular Filtration Rate > 60 mL/min (>60) Glucose Level 350 MG/DL (74-106) H Calcium Level 9.6 MG/DL (8.5-10.1) Total Bilirubin 0.2 MG/DL (0.2-1.0) Aspartate Amino Transferase (AST) 22 U/L (15-37) Alanine Aminotransferase (ALT) 57 U/L (12-78) Alkaline Phosphatase 133 U/L (46-116) H Total Protein 7.9 G/DL (6.4-8.2) Albumin 3.5 G/DL (3.4-5.0) Globulin 4.4 g/dL Albumin/Globulin Ratio 0.8 (1.0-2.7) L CT/MRI/US Diagnostic Results CT/MRI/US Diagnostic Results : Impression Procedure: CT Head no Contrast EXAM: CT Head Without Intravenous Contrast CLINICAL HISTORY: H/A TECHNIQUE: Axial computed tomography images of the head/brain without intravenous contrast. CTDI is 62.7 mGy and DLP is 1363.6 mGy-cm. One or more of the following dose reduction techniques were used: automated exposure control, adjustment of the mA and/or kV according to patient size, use of iterative reconstruction technique. COMPARISON: No relevant prior studies available. FINDINGS: Brain: No hemorrhage. Subtle low attenuation changes in the left cerebellar hemisphere. Involutional changes with small vessel/white matter disease Ventricles: No ventriculomegaly. Bones/joints: No acute fracture. Soft tissues: Unremarkable. Sinuses: No acute sinusitis. Mastoid air cells: No mastoid effusion. IMPRESSION: No intracranial hemorrhage. Dictated By: Araceli Liu MD Electronically Signed By: Araceli Liu MD Signed Date/Time 12/27/19 3634 CC: Efren Wagner MD Last Vital Signs Date Time Temp Pulse Resp B/P (MAP) Pulse Ox O2 Delivery O2 Flow Rate FiO2 12/27/19 21:20 97.9 70 19 136/88 97 Room Air Disposition: HOME, SELF-CARE Condition: Stable Scripts Riboflavin (RIBOFLAVIN) 100 Mg Tablet 400 MG PO DAILY, #180 TAB Prov: Efren Wagner MD 12/27/19 Referrals: [facility]. [facility] Patient Instructions: General Headache Without Cause Additional Instructions: The patient was provided with discharge instructions, notified to follow-up with a primary care doctor and or specialist in the next 24-48 hours, and to return to the ED if they have worsening of their symptoms. Please note that this report is being documented using [employer] technology. This can lead to erroneous entry secondary to incorrect interpretation by the dictating instrument. Efren Wagner MD Dec 27, 2019 22:38
--- NOTE | 2019-12-27 23:06 | Diagnostic Imaging Report ---
EXAM: CT Head Without Intravenous Contrast CLINICAL HISTORY: H/A TECHNIQUE: Axial computed tomography images of the head/brain without intravenous contrast. CTDI is 62.7 mGy and DLP is 1363.6 mGy-cm. One or more of the following dose reduction techniques were used: automated exposure control, adjustment of the mA and/or kV according to patient size, use of iterative reconstruction technique. COMPARISON: No relevant prior studies available. FINDINGS: Brain: No hemorrhage. Subtle low attenuation changes in the left cerebellar hemisphere. Involutional changes with small vessel/white matter disease Ventricles: No ventriculomegaly. Bones/joints: No acute fracture. Soft tissues: Unremarkable. Sinuses: No acute sinusitis. Mastoid air cells: No mastoid effusion. IMPRESSION: No intracranial hemorrhage.
[2019-12-27] MEDS ORDERED: RIBOFLAVIN100 MG PO (23:16)
[2019-12-27 23:43] VITALS: BP 131/70
--- NOTE | 2019-12-27 23:43 | NUR ---
ED Nurse Note: Pt cleared by ERMD for discharge. DC instructions/prescription was given and explained to pt and verbalized understanding of teachings. All medical deviecs such as ID band and IV line removed. Pt is AAO x4, ambulatory and left with all personal belongings.
== END 2019-12-27 23:43 | disposition home or self-care (01) ==
LOC: EMR 23:43
DX: R51 Headache (principal); E11.9 Type 2 diabetes mellitus without complications; I10 Essential (primary) hypertension; G81.91 Hemiplegia, unspecified affecting right dominant side
CPT/HCPCS: 36415; 70450; 80053; 85025; 96374; J2765; Z7502; 99284